=== PATIENT | male | born 1960 | race Caucasian/White ===

== ENCOUNTER 2016-03-06 10:32 | Inpatient (IN) | payer MEDICAID, MEDICARE ==
--- NOTE | 2016-03-06 10:34 | ED Physician Chart ---
Chief Complaint/HPI - Patient Information Date Seen:: 03/06/16 Time Seen:: 10:34 Chief Complaint:: cough History of Present Illness:: 55-year-old male, history of diabetes, complains of worsening, constant, moderate to severe, slightly productive, cough 2 weeks. Has associated shortness of breath. Patient also complains of acute, worsening, constant, moderate to severe, infection of the skin on his chin and forehead. Associated redness and swelling of the chin and forehead. Has a history of cellulitis. Allergies:: Allergies Allergy/AdvReac Type Severity Reaction Status Date / Time MDX No Known Allergies - Nka Allergy Verified 02/11/15 11:00 [No Known Allergies - Nka] Historian:: Patient Review:: Nurse's Note Reviewed Review of Systems - Review of Systems Other: Complete system review otherwise unremarkable except as noted in HPI. Past Medical History - Past Medical History Past Medical History: HTN, DM, CHF Family History: None Social History: Smoker Surgical History: None Psychiatricy History: None Medication: Reviewed Family Medical History - Family Member Father History Unknown: Yes Living Status: Hx Family Diabetes: Yes Physical Exam - Physical Examination Other:: INITIAL VITAL SIGNS: Reviewed by me GENERAL: Alert and interactive. No acute distress HEAD: Head is normocephalic and atraumatic EYES: EOMI. . No scleral icterus. No conjunctival injection ENT: Moist mucous membranes. NECK: Supple. No masses. Full range of motion RESPIRATORY: No tachypnea. Prolonged expiratory phase with bilateral expiratory wheezing. CV: Regular rate and rhythm. No murmurs, rubs, or gallops ABDOMEN: Soft, non-distended, non-tender. No guarding. No rebound. No masses. EXTREMITIES: No deformity. No cyanosis. No edema. SKIN: Warm and dry. No obvious rashes. NEUROLOGIC: Alert and oriented. Face is symmetric. Speech is normal. Moves all extremities equally. Motor and sensory distally intact. Labs/Radiology/EKG Results - Radiology Results Results: Single AP VIEW Portable Chest X-ray was interpreted independently and contemporaneously by David Herbert MD: No cardiomegaly Normal mediastinum No lung infiltrates No pneumothorax No soft tissue or bony abnormalities - EKG Interpretations Comments:: 12-lead EKG Interpretation by David Herbert MD: Normal Sinus Rhythm with ventricular rate of 90 beats per minute Normal axis Normal intervals No acute ST or T wave changes. No obvious STEMI Assessment - Assessment General Assessment: SMOKING CESSATION COUNSELING: I spent greater than 3 minutes at the bedside with the patient discussing the benefits of smoking cessation, including decreased risk of heart disease, lung cancer, and emphysema. We also discussed strategies for smoking cessation, including pharmaceutical options. The patient was also encouraged to follow up with the primary care physician for outpatient follow-up. ED Septic Shock - . Is Septic Shock (SBP<90, OR Lactate>4 mmol\L) present?: No Reassessment (Disposition) - Reassessment Reassessment:: Patient is a smoker. He seems to be having a COPD exacerbation. Elevated white count of 16.2. He also has cellulitis of the forehead and chin. Comorbidities include CHF, diabetes mellitus and hypertension. He received Steroids and antibiotics here in the ER. Also received breathing treatment. He did experience some relief of the cough and shortness of breath. However patient will most likely benefit from some ongoing inpatient treatment and workup. Discussed the case with his primary care physician and admitting physician who has decided to admit the patient to his service for further workup and treatment. Reassessment Condition:: Improved - Diagnosis Diagnosis:: COPD exacerbation Cellulitis of the face Hyponatremia Uncontrolled diabetes mellitus with hyperglycemia Hypertension - Patient Disposition Discharge/Transfer:: Acute Care w/in this hosp Admitted to:: Med/Surg Admitting Medical Physician:: Adithya Hernandes Time:: 12:05 Condition at Disposition:: Stable ED Discharge Plan - Patient Disposition Admit/Discharge/Transfer: Acute Care w/in this hosp Condition at Disposition: Stable
[2016-03-06 11:03] LABS: URINE BILIRUBIN NEGATIVE (NEGATIVE); URINE COLOR YELLOW; URINE GLUCOSE (UA) 500 mg/dL (NEGATIVE); URINE KETONE NEGATIVE (NEGATIVE)
[2016-03-06 11:04] LABS: URINE BLOOD SMALL (NEGATIVE); URINE PROTEIN 100 mg/dL (NEGATIVE); URINE UROBILINOGEN 0.2 E.U./dL (0.2 - 1.0); URINE WBC 0-2 /hpf (0-5)
[2016-03-06 11:05] LABS: URINE BACTERIA OCCASIONAL /hpf (NONE SEEN); URINE EPITHELIAL CELLS OCCASIONAL /lpf (FEW); URINE SPERM FEW /hpf (NONE SEEN)
[2016-03-06 11:16] LABS: AMPHETAMINE URINE NEGATIVE (NEGATIVE); BARBITURATES URINE NEGATIVE (NEGATIVE)
[2016-03-06 11:23] LABS: % LYMPHOCYTES 9.5 % (20.0-50.0); % MONOCYTES 2.8 % (2.0-10.0); % NEUTROPHILS 86.7 % (40.0-80.0); MEAN CELL VOLUME 92.8 fl (80-99); MEAN CORPUSCULAR HEMOGLOBIN 30.6 pg (26.0-30.0); MEAN PLATELET VOLUME 9.1 fl; NEUTROPHILE ABSOLUTE 14.1 Th/cmm (1.8-8.0); RED BLOOD COUNT 4.63 Mil/cmm (4.30-5.70); RED CELL DISTRIBUTION WIDTH 12.1 % (11.5-20.0)
[2016-03-06] MEDS ORDERED: Dexamethasone Sodium Phos 4 mg/mL Vial IM STA (11:24)
[2016-03-06] MEDS ORDERED: Albuterol/Ipratropium Neb 3 ML AERS HHN ONE ×2 (11:24→11:34)
[2016-03-06 11:26] LABS: HEMOGLOBIN 14.2 gm/dL (13.2-17.3); PLATELET COUNT 377 Th/cmm (150-400); WHITE BLOOD COUNT 16.3 Th/cmm (4.8-10.8)
[2016-03-06] MEDS ORDERED: Dexamethasone Sodium Phos 10 mg/mL PF Vial ONE (11:27)
[2016-03-06 11:37] LABS: INR 0.99 (0.5-1.4); PROTHROMBIN TIME (TEST) 9.8 SECONDS (9.5-11.5)
[2016-03-06 11:44] LABS: ALB/GLOB RATIO 0.8 (1.0-1.8); ALKALINE PHOSPHATASE 241 U/L (34-104); ANION GAP 10.1 (7.0-16.0); BILIRUBIN,TOTAL 0.4 mg/dL (0.3-1.0); BUN - UREA NITROGEN 21 mg/dL (7-25); CALCIUM SERUM 9.7 mg/dL (8.6-10.3); CARBON DIOXIDE 25.4 mEq/L (21.0-31.0); CHLORIDE 95 mEq/L (98-107); POTASSIUM SERUM 4.5 mEq/L (3.5-5.1); SGOT 44 U/L (13-39); SGPT/ALT 58 U/L (7-52); SODIUM SERUM 126 mEq/L (136-145)
[2016-03-06 12:02] LABS: GLUCOSE 461 mg/dL (70-105)
[2016-03-06] MEDS ORDERED: Sodium Chloride 0.9% 1,000 ML IV ONE (12:02)
[2016-03-06] MEDS ORDERED: Piperacillin Sodium/Tazobact 3.375 gm Vial IV ONE (12:25)
[2016-03-06] MEDS ORDERED: Albuterol/Ipratropium Neb 3 ML AERS HHN PRN (13:04)
[2016-03-06] MEDS: Insulin Detemir 100 units/mL 10mL Vial SUBQ SCH (14:15)
[2016-03-06] MEDS: Albuterol Nebulizer 2.5mg/3mL HHN SCH ×3 (14:42→22:38)
[2016-03-06] MEDS: INSULIN ASPART SLIDING SCALE 100 UNITS/ML UNIT SUBQ SCH ×2 (16:26→21:18)
[2016-03-06] MEDS: Ipratropium Neb 0.5 mg/2.5 mL UD HHN SCH ×3 (20:09→22:42)
--- NOTE | 2016-03-06 21:12 | Admit Criteria Form ---
Admit Criteria Forms - Admit Criteria Diagnosis: COPD Clinical Indications for Admission to Inpatient Care (Place 'X' for any and all applicable criteria): Admission is indicated for ANY ONE of the following (1)(2)(3): [ X]I. Acute exacerbation by high-risk comorbidity (e.g., pneumonia, dysrhythmia, heart failure, pleural effusion, pneumothorax) or severe underlying COPD (e.g., steroid dependent) [ ]II. Inpatient admission required rather than observation care (see Chronic Obstructive Pulmonary Disease: Observation Care) because of ANY ONE of the following: [ ]a) New or pre-existing signs or symptoms of COPD (eg, dyspnea or Tachypnea at rest or with minimal activity) that persist despite outpatient and observation care treatment [ ]b) New-onset hypoxemia (room air SaO2 less than 90%, PO2 less than 60 mm Hg (8.0 kPa)) that persists despite outpatient and observation care treatment [ ]c) Worsening of pre-existing hypoxemia (eg, new or increased requirement for supplemental oxygen to maintain oxygenation at baseline level) that persists despite outpatient and observation care treatment, with oxygen treatment needs performable only in acute inpatient setting [ ]d) Hypercarbia (PCO2 greater than 40 mm Hg (5.3 kPa))-induced respiratory acidosis (pH less than 7.35) that persists despite outpatient and observation care treatment [ ]e) Supplemental oxygen or respiratory treatments for over 24 hours that are performable only in acute inpatient setting [ ]f) Chest tube placement with active evacuation (e.g., suction, drainage) (5) [ ]g) Other condition, treatment or monitoring requiring inpatient admission [ ]III. Planned invasive surgical or diagnostic procedures requiring acute- care hospitalization [ ]IV. Acute respiratory failure (e.g., uncompensated hypercarbia, severe hypoxemia) [ ]V. Severe comorbid condition (e.g., severe steroid myopathy, acute vertebral fracture) that has acutely worsened pulmonary function [ ]. Confusion state, lethargy, obtundation, stupor or coma Extended stay beyond goal length of stay may be needed for (31)(32): [ ]a ) Respiratory Failure. [ ]b) Severe or persisting hypoxemia or hypercarbia [ ]c) Severe or persistent dyspnea [ ]d) Comorbidities (e.g. chronic heart failure, atrial fibrillation with rapid response, pneumonia) [ ]e) Malnutrition The original [employer] content created by [facility] has been revised. The portions of the content which have been revised are identified through the use of italic text or in bold, and [facility] has neither reviewed nor approved the modified material. All other unmodified content is copyright [facility]. Please see references footnoted in the original [facility] edition 2016 Admit Criteria Met?: Yes
[2016-03-07] MEDS: Albuterol Nebulizer 2.5mg/3mL HHN SCH ×6 (03:17→22:52)
[2016-03-07] MEDS: Ipratropium Neb 0.5 mg/2.5 mL UD HHN SCH ×6 (03:17→22:53)
[2016-03-07 06:27] LABS: HEMATOCRIT 39.3 % (39.0-49.0); HEMOGLOBIN 13.1 gm/dL (13.2-17.3); MEAN CELL VOLUME 92.1 fl (80-99); MEAN CORPUSCULAR HEMOGLOBIN 30.7 pg (26.0-30.0); MEAN CORPUSCULAR HGB CONC 33.3 pg (28.0-36.0); MEAN PLATELET VOLUME 9.2 fl; PLATELET COUNT 340 Th/cmm (150-400); RED BLOOD COUNT 4.27 Mil/cmm (4.30-5.70); RED CELL DISTRIBUTION WIDTH 12.4 % (11.5-20.0); WHITE BLOOD COUNT 13.9 Th/cmm (4.8-10.8)
[2016-03-07] MEDS: INSULIN ASPART SLIDING SCALE 100 UNITS/ML UNIT SUBQ SCH ×4 (06:45→22:54)
[2016-03-07 07:06] LABS: ANION GAP 12.7 (7.0-16.0); BUN - UREA NITROGEN 28 mg/dL (7-25); BUN/CREATININE RATIO 31.1; CALCIUM SERUM 9.5 mg/dL (8.6-10.3); CARBON DIOXIDE 22.6 mEq/L (21.0-31.0); CHLORIDE 99 mEq/L (98-107); CREATININE - SERUM 0.9 mg/dL (0.7-1.3); GLUCOSE 417 mg/dL (70-105); POTASSIUM SERUM 4.3 mEq/L (3.5-5.1); SODIUM SERUM 130 mEq/L (136-145)
[2016-03-07] MEDS: Potassium Chloride 10 mEq ER Tab PO SCH (08:30)
[2016-03-07] MEDS: Insulin Detemir 100 units/mL 10mL Vial SUBQ SCH ×2 (08:50→16:42)
--- NOTE | 2016-03-07 09:31 | Diagnostic Imaging Report ---
History: Shortness of breath Comparison: 02/12/2015 Findings: Heart size is enlarged. There is mild bilateral bronchovascular prominence in the bases. Impression: Compared to previous exam question mild congestive changes.
[2016-03-07 10:29] LABS: BAND NEUTROPHILE 6 % (0-10); NEUTROPHILS 86 % (40-80); TOTAL CELLS COUNTED 100
[2016-03-07 10:30] LABS: PLATELET ESTIMATE ADEQUATE (NORMAL); PLATELET MORPHOLOGY NORMAL (NORMAL)
--- NOTE | 2016-03-07 10:47 | Diagnostic Imaging Report ---
History: Chest pain and shortness of breath Comparison: 03/06/2016 Findings: Heart size is enlarged. There is vascular prominence in the bases. Impression: Slight increase in congestive changes compared to previous day's exam.
--- NOTE | 2016-03-07 19:48 | History & Physical ---
CHIEF COMPLAINT: Shortness of breath. HISTORY OF PRESENT ILLNESS: This is a 55-year-old male with underlying history of systolic heart failure, diabetes mellitus, chronic smoker, hypertension, who was evaluated in the Emergency Room at [facility] for shortness of breath and cough for the past few days, which progressively got worse. The patient tell that he has been not taking his medications the way he should. The patient also been noncompliant with the appointment with the physicians. The patient denies any chest pain, no dizziness, no palpitations, no fever, no chills. He also noticed some skin bumps over the face and the neck area for the past few days. The patient does have underlying history of prior drug abuse. He said he is also a chronic smoker. PAST MEDICAL HISTORY: Diabetes mellitus, hypertension, congestive heart failure, osteomyelitis. PAST SURGICAL HISTORY: Denies any past history. FAMILY HISTORY: Denies significant family history. SOCIAL HISTORY: Lives at home. He is a chronic smoker, denies any current alcohol, tobacco or street drug use. CURRENT MEDICATIONS: The patient is currently on Lasix, Coreg, albuterol, Atrovent, insulin, metformin, potassium and vancomycin. PHYSICAL EXAMINATION: HEENT: Negative for JVD. NECK: No neck stiffness noted. CHEST: Bilateral ____. HEART: S1, S2 normal. ABDOMEN: Soft, nontender, no palpable mass, no hepatosplenomegaly. NEUROLOGIC: The patient is alert and awake. Moves all 4. No focal deficits. EXTREMITIES: +1 pitting edema in both lower extremities. SKIN: Scattered slightly erythematous skin bumps noted on the neck and the face area. LABORATORY DATA: Available lab area data as follows: WBC is 16, up on admission 16.3, hematocrit 43.0, platelet 377, neutrophil 86.7%, lymphocyte ____%. Sodium was 126, potassium was 4.5, BUN upon admission was 21, creatinine was 0.9. AST 44. ALT was 58. BNP 2940.0. Chest x-ray negative for any acute infiltrates. CHF changes noted. ASSESSMENT: 1. Acute systolic heart failure. 2. Cellulitis over the face. 3. Diabetes with hyperglycemia. 4. Noncompliance. 5. Hypertension. 6. Chronic cigarette smoker. 7. Microscopic hematuria. PLAN: The patient will be admitted to the hospital for further treatments for underlying congestive heart failure and CHF exacerbation. The patient is on IV Lasix, Coreg, nebulizer treatment, oxygen, IV vancomycin was started. ID, General Surgery and Cardiology consult was called in. The patient was started on basal bolus insulin. Blood sugar will be monitored. We will do a repeat urine to see and will follow up on the microscopic hematuria to see if it is something significant. I discussed with patient regarding smoking cessation and also medication and treatment compliance as well as patient's follow up compliance, all of this discussed with the patient. Blood cultures were also obtained. The patient's condition and plan was discussed with nursing staff. We will follow up on the ____ recommendations. The patient's home medications were reconciled. JOB# [id number]
--- NOTE | 2016-03-07 21:37 | General Progress Note ---
Subjective - Review of Systems Service Date: 03/07/16 Subjective: Patient doing fine no new events reported Objective - Results Result Diagrams: 03/07/16 06:07 03/07/16 06:07 Recent Labs: Laboratory Last Values WBC 13.9 Th/cmm (4.8-10.8) H 03/07/16 06:07 RBC 4.27 Mil/cmm (4.30-5.70) L 03/07/16 06:07 Hgb 13.1 gm/dL (13.2-17.3) L 03/07/16 06:07 Hct 39.3 % (39.0-49.0) 03/07/16 06:07 MCV 92.1 fl (80-99) 03/07/16 06:07 MCH 30.7 pg (26.0-30.0) H 03/07/16 06:07 MCHC Differential 33.3 pg (28.0-36.0) 03/07/16 06:07 RDW 12.4 % (11.5-20.0) 03/07/16 06:07 Plt Count 340 Th/cmm (150-400) 03/07/16 06:07 MPV 9.2 fl 03/07/16 06:07 Neutrophils % 86.7 % (40.0-80.0) H 03/06/16 11:05 Band Neutrophils % 6 % (0-10) 03/07/16 06:07 Lymphocytes % 9.5 % (20.0-50.0) L 03/06/16 11:05 Monocytes % 2.8 % (2.0-10.0) 03/06/16 11:05 Eosinophils % 1.0 % (0.0-5.0) 03/06/16 11:05 Basophils % 0.0 % (0.0-2.0) 03/06/16 11:05 Neutrophils (Manual) 86 % (40-80) H 03/07/16 06:07 Lymphocytes 4 % (20-50) L 03/07/16 06:07 Monocytes 4 % (2-10) 03/07/16 06:07 Platelet Estimate ADEQUATE (NORMAL) 03/07/16 06:07 Platelet Morphology NORMAL (NORMAL) 03/07/16 06:07 RBC Morph Micro Appear NORMAL (NORMAL) 03/07/16 06:07 PT 9.8 SECONDS (9.5-11.5) 03/06/16 11:05 INR 0.99 (0.5-1.4) 03/06/16 11:05 PTT (Actin FS) 24.1 SECONDS (26.0-38.0) L 03/06/16 11:05 Sodium 130 mEq/L (136-145) L 03/07/16 06:07 Potassium 4.3 mEq/L (3.5-5.1) 03/07/16 06:07 Chloride 99 mEq/L (98-107) 03/07/16 06:07 Carbon Dioxide 22.6 mEq/L (21.0-31.0) 03/07/16 06:07 Anion Gap 12.7 (7.0-16.0) 03/07/16 06:07 BUN 28 mg/dL (7-25) H 03/07/16 06:07 Creatinine 0.9 mg/dL (0.7-1.3) 03/07/16 06:07 Est GFR ( Amer) > 60.0 ml/min (>90) 03/07/16 06:07 Est GFR (Non-Af Amer) > 60.0 ml/min 03/07/16 06:07 BUN/Creatinine Ratio 31.1 03/07/16 06:07 Glucose 417 mg/dL (70-105) H 03/07/16 06:07 POC Glucose 126 MG/DL (70 - 105) H 03/07/16 15:49 Hemoglobin A1c % 12.9 % (4.0-6.0) H 03/06/16 11:05 Whole Bld Lactic Acid 1.57 mmol/L (0.60-2.00) 03/06/16 11:05 Calcium 9.5 mg/dL (8.6-10.3) 03/07/16 06:07 Total Bilirubin 0.4 mg/dL (0.3-1.0) 03/06/16 11:05 AST 44 U/L (13-39) H 03/06/16 11:05 ALT 58 U/L (7-52) H 03/06/16 11:05 Alkaline Phosphatase 241 U/L (34-104) H 03/06/16 11:05 Creatine Kinase 73 U/L (30-223) 03/06/16 11:05 B-Natriuretic Peptide 3300.0 pg/mL (5.0-100.0) H 03/07/16 06:07 Total Protein 7.5 gm/dL (6.0-8.3) 03/06/16 11:05 Albumin 3.3 gm/dL (4.2-5.5) L 03/06/16 11:05 Globulin 4.2 gm/dL 03/06/16 11:05 Albumin/Globulin Ratio 0.8 (1.0-1.8) L 03/06/16 11:05 Urine Source CLEAN C 03/06/16 10:44 Urine Color YELLOW 03/06/16 10:44 Urine Clarity CLEAR (CLEAR) 03/06/16 10:44 Urine pH 6.0 03/06/16 10:44 Ur Specific [place] 1.015 (1.005-1.030) 03/06/16 10:44 Urine Protein 100 mg/dL (NEGATIVE) H 03/06/16 10:44 Urine Glucose (UA) 500 mg/dL (NEGATIVE) H 03/06/16 10:44 Urine Ketones NEGATIVE mg/dL (NEGATIVE) 03/06/16 10:44 Urine Blood SMALL (NEGATIVE) H 03/06/16 10:44 Urine Nitrate NEGATIVE (NEGATIVE) 03/06/16 10:44 Urine Bilirubin NEGATIVE (NEGATIVE) 03/06/16 10:44 Urine Urobilinogen 0.2 E.U./dL (0.2 - 1.0) 03/06/16 10:44 Ur Leukocyte Esterase NEGATIVE (NEGATIVE) 03/06/16 10:44 Urine RBC 2-5 /hpf (0-5) H 03/06/16 10:44 Urine WBC 0-2 /hpf (0-5) 03/06/16 10:44 Ur Epithelial Cells OCCASIONAL /lpf (FEW) 03/06/16 10:44 Urine Bacteria OCCASIONAL /hpf (NONE SEEN) 03/06/16 10:44 Urine Yeast FEW /hpf (NONE SEEN) H 03/06/16 10:44 Urine Sperm FEW /hpf (NONE SEEN) 03/06/16 10:44 Urine Opiates Screen NEGATIVE (NEGATIVE) 03/06/16 10:35 Ur Barbiturates Screen NEGATIVE (NEGATIVE) 03/06/16 10:35 Ur Phencyclidine Scrn NEGATIVE (NEGATIVE) 03/06/16 10:35 Amphetamines Screen NEGATIVE (NEGATIVE) 03/06/16 10:35 U Methamphetamines Scrn NEGATIVE (NEGATIVE) 03/06/16 10:35 U Benzodiazepines Scrn NEGATIVE (NEGATIVE) 03/06/16 10:35 U Cocaine Metab Screen NEGATIVE (NEGATIVE) 03/06/16 10:35 U Cannabinoids Screen NEGATIVE (NEGATIVE) 03/06/16 10:35 - Physical Exam Vitals and I&O: Vital Signs Temp 98.4 F 03/07/16 16:00 Pulse 95 03/07/16 16:00 Resp 17 03/07/16 16:00 BP 126/84 03/07/16 16:40 Pulse Ox 95 03/07/16 16:00 Intake & Output 03/07/16 03/07/16 03/08/16 06:59 18:59 06:59 Intake Total 250 Balance 250 Intake: Intake, IV Amount 250 Vancomycin HCl 1.25 gm In 250 Sodium Chloride 0.9% 250 ml @ 165 mls/hr IV Q12H [facility] Rx#:[id number] Other: # Voids 5 # Bowel Movements 1 Stool Characteristics Formed Formed Active Medications: Current Medications Albuterol Sulfate (Albuterol 2.5mg/3ml Neb Ud) 2.5 mg HHN Q4HRT [facility] Stop: 05/05/16 14:59 Last Admin: 03/07/16 19:35 Dose: 2.5 mg Albuterol/Ipratropium (Duoneb Neb) 3 ml HHN Q2HRT PRN PRN Reason: Shortness of Breath Stop: 05/05/16 13:03 Carvedilol (Coreg) 3.125 mg PO Q12HR MARIO Stop: 05/05/16 20:59 Last Admin: 03/07/16 08:29 Dose: 3.125 mg Furosemide (Lasix) 40 mg IVP BID [facility] Stop: 05/06/16 16:59 Last Admin: 03/07/16 16:40 Dose: 40 mg Vancomycin HCl 1.25 gm/ Sodium (Chloride) 250 mls @ 165 mls/hr IV Q12H [facility] Stop: 05/06/16 00:00 Last Admin: 03/07/16 11:48 Dose: 165 mls/hr Ibuprofen (Motrin) 800 mg PO TID PRN PRN Reason: Pain (Mild) Stop: 05/06/16 16:59 Insulin Aspart (Novolog Insulin Sliding Scale) 0 units SUBQ ACHS MARIO PRN Reason: Protocol Stop: 05/05/16 16:29 Last Admin: 03/07/16 16:41 Dose: Not Given Insulin Detemir (Levemir Insulin) 15 units SUBQ BID MARIO PRN Reason: Protocol Stop: 05/06/16 16:59 Last Admin: 03/07/16 16:42 Dose: Not Given Ipratropium [place] (Atrovent Neb 0.5mg/2.5ml) 0.5 mg HHN Q4HRT MARIO Stop: 05/05/16 14:59 Last Admin: 03/07/16 19:35 Dose: 0.5 mg Metformin HCl (Glucophage) 1,000 mg PO BIDWM MARIO Stop: 05/05/16 17:59 Last Admin: 03/07/16 17:15 Dose: 1,000 mg Miscellaneous (Vancomycin Iv Per Pharmacy) 1 ea MC DAILY MARIO Stop: 05/06/16 08:59 Mupirocin (Bactroban Oint) 1 appl TP BID [facility] Stop: 03/13/16 08:59 Potassium Chloride (Klor-Con) 10 meq PO DAILY MARIO Stop: 05/06/16 08:59 Last Admin: 03/07/16 08:30 Dose: 10 meq Cardiovascular: Regular rate Lungs: Other (rales) Abdomen: Soft - Procedures Procedures: Procedures Procedure Code Date JUAN DIEGO BONE 20 SQ CM/< 01492 02/11/15 EXCISION OF RIGHT RADIUS, OPEN APPROACH [id number] 02/11/15 Assessment/Plan - Problem List Patient Problems: All Active Problems COUGH WITH CONGESTION AND FACIAL LESIONS (Acute) Arm pain (Acute) - Assessment Assessment: Systolic heart failure Uncontrolled diabetes HTN Facial cellulitis Smoking Non compliance - Plan Plan: Lasix increased to 40 BID Levemir increased to 15 BID Monitor vitals Monitor labs Vancomycin
[2016-03-08] MEDS ORDERED: Morphine Sulfate 2 mg/mL 1mL Syr IVP ONE (01:30)
[2016-03-08 06:20] LABS: CHOLESTEROL 168 mg/dL (<200); TRIGLYCERIDES 202 mg/dL (<150)
[2016-03-08] MEDS: INSULIN ASPART SLIDING SCALE 100 UNITS/ML UNIT SUBQ SCH ×4 (06:50→21:30)
[2016-03-08] MEDS: Ipratropium Neb 0.5 mg/2.5 mL UD HHN SCH ×5 (07:25→22:22)
[2016-03-08] MEDS: Albuterol Nebulizer 2.5mg/3mL HHN SCH ×5 (07:26→22:22)
[2016-03-08] MEDS: Insulin Detemir 100 units/mL 10mL Vial SUBQ SCH ×2 (09:57→17:21)
[2016-03-08] MEDS: Potassium Chloride 10 mEq ER Tab PO SCH (09:59)
--- NOTE | 2016-03-08 12:40 | Consultation ---
REFERRING PHYSICIAN: Dr. Ovidio Hernandes. REASON FOR CONSULTATION: Skin infections, head and neck. Thank you for referring this patient to me. HISTORY OF PRESENT ILLNESS: This is a 55-year-old male with known history of CHF, diabetes mellitus, chronic smoker, hypertension. His blood sugar is extremely high on admission and has been persistently high. He claims he needs to be on insurance, but his insurance would not cover it. LABORATORY STUDIES: On this admission, the WBC was elevated to 13,900 with 86% neutrophils. Blood sugar on admission was 417. PHYSICAL EXAMINATION: GENERAL: The patient appears to be coherent. SKIN: Multiple skin lesions, which appeared to be inflamed acne or ____ involving head and neck. It is slightly tender with minimal cellulitis. RECOMMENDATIONS: Continue antibiotics. We will leave these lesions ____ and likely this will clear up with antibiotics. We will follow as needed. [facility]# [id number]
--- NOTE | 2016-03-08 13:28 | Infectious Disease Prog Note ---
Infectious Disease Subjective - Review of Systems Service Date: 03/08/16 Subjective: There is no new change. Infectious Disease Objective - Results Result Diagrams: 03/07/16 06:07 03/07/16 06:07 Recent Labs: Laboratory Last Values WBC 13.9 Th/cmm (4.8-10.8) H 03/07/16 06:07 RBC 4.27 Mil/cmm (4.30-5.70) L 03/07/16 06:07 Hgb 13.1 gm/dL (13.2-17.3) L 03/07/16 06:07 Hct 39.3 % (39.0-49.0) 03/07/16 06:07 MCV 92.1 fl (80-99) 03/07/16 06:07 MCH 30.7 pg (26.0-30.0) H 03/07/16 06:07 MCHC Differential 33.3 pg (28.0-36.0) 03/07/16 06:07 RDW 12.4 % (11.5-20.0) 03/07/16 06:07 Plt Count 340 Th/cmm (150-400) 03/07/16 06:07 MPV 9.2 fl 03/07/16 06:07 Neutrophils % 86.7 % (40.0-80.0) H 03/06/16 11:05 Band Neutrophils % 6 % (0-10) 03/07/16 06:07 Lymphocytes % 9.5 % (20.0-50.0) L 03/06/16 11:05 Monocytes % 2.8 % (2.0-10.0) 03/06/16 11:05 Eosinophils % 1.0 % (0.0-5.0) 03/06/16 11:05 Basophils % 0.0 % (0.0-2.0) 03/06/16 11:05 Neutrophils (Manual) 86 % (40-80) H 03/07/16 06:07 Lymphocytes 4 % (20-50) L 03/07/16 06:07 Monocytes 4 % (2-10) 03/07/16 06:07 Platelet Estimate ADEQUATE (NORMAL) 03/07/16 06:07 Platelet Morphology NORMAL (NORMAL) 03/07/16 06:07 RBC Morph Micro Appear NORMAL (NORMAL) 03/07/16 06:07 PT 9.8 SECONDS (9.5-11.5) 03/06/16 11:05 INR 0.99 (0.5-1.4) 03/06/16 11:05 PTT (Actin FS) 24.1 SECONDS (26.0-38.0) L 03/06/16 11:05 Sodium 130 mEq/L (136-145) L 03/07/16 06:07 Potassium 4.3 mEq/L (3.5-5.1) 03/07/16 06:07 Chloride 99 mEq/L (98-107) 03/07/16 06:07 Carbon Dioxide 22.6 mEq/L (21.0-31.0) 03/07/16 06:07 Anion Gap 12.7 (7.0-16.0) 03/07/16 06:07 BUN 28 mg/dL (7-25) H 03/07/16 06:07 Creatinine 0.9 mg/dL (0.7-1.3) 03/07/16 06:07 Est GFR ( Amer) > 60.0 ml/min (>90) 03/07/16 06:07 Est GFR (Non-Af Amer) > 60.0 ml/min 03/07/16 06:07 BUN/Creatinine Ratio 31.1 03/07/16 06:07 Glucose 417 mg/dL (70-105) H 03/07/16 06:07 POC Glucose 269 MG/DL (70 - 105) H 03/08/16 09:56 Hemoglobin A1c % 12.9 % (4.0-6.0) H 03/06/16 11:05 Whole Bld Lactic Acid 1.57 mmol/L (0.60-2.00) 03/06/16 11:05 Calcium 9.5 mg/dL (8.6-10.3) 03/07/16 06:07 Total Bilirubin 0.4 mg/dL (0.3-1.0) 03/06/16 11:05 AST 44 U/L (13-39) H 03/06/16 11:05 ALT 58 U/L (7-52) H 03/06/16 11:05 Alkaline Phosphatase 241 U/L (34-104) H 03/06/16 11:05 Creatine Kinase 73 U/L (30-223) 03/06/16 11:05 B-Natriuretic Peptide 3300.0 pg/mL (5.0-100.0) H 03/07/16 06:07 Total Protein 7.5 gm/dL (6.0-8.3) 03/06/16 11:05 Albumin 3.3 gm/dL (4.2-5.5) L 03/06/16 11:05 Globulin 4.2 gm/dL 03/06/16 11:05 Albumin/Globulin Ratio 0.8 (1.0-1.8) L 03/06/16 11:05 Triglycerides 202 mg/dL (<150) H 03/08/16 05:45 Cholesterol 168 mg/dL (<200) 03/08/16 05:45 LDL Cholesterol Direct 105 mg/dL (75-193) 03/08/16 05:45 HDL Cholesterol 50 mg/dL (23-92) 03/08/16 05:45 Urine Source CLEAN C 03/06/16 10:44 Urine Color YELLOW 03/06/16 10:44 Urine Clarity CLEAR (CLEAR) 03/06/16 10:44 Urine pH 6.0 03/06/16 10:44 Ur Specific [place] 1.015 (1.005-1.030) 03/06/16 10:44 Urine Protein 100 mg/dL (NEGATIVE) H 03/06/16 10:44 Urine Glucose (UA) 500 mg/dL (NEGATIVE) H 03/06/16 10:44 Urine Ketones NEGATIVE mg/dL (NEGATIVE) 03/06/16 10:44 Urine Blood SMALL (NEGATIVE) H 03/06/16 10:44 Urine Nitrate NEGATIVE (NEGATIVE) 03/06/16 10:44 Urine Bilirubin NEGATIVE (NEGATIVE) 03/06/16 10:44 Urine Urobilinogen 0.2 E.U./dL (0.2 - 1.0) 03/06/16 10:44 Ur Leukocyte Esterase NEGATIVE (NEGATIVE) 03/06/16 10:44 Urine RBC 2-5 /hpf (0-5) H 03/06/16 10:44 Urine WBC 0-2 /hpf (0-5) 03/06/16 10:44 Ur Epithelial Cells OCCASIONAL /lpf (FEW) 03/06/16 10:44 Urine Bacteria OCCASIONAL /hpf (NONE SEEN) 03/06/16 10:44 Urine Yeast FEW /hpf (NONE SEEN) H 03/06/16 10:44 Urine Sperm FEW /hpf (NONE SEEN) 03/06/16 10:44 Vancomycin Trough 22.9 ug/mL (10-20) H 03/08/16 11:00 Urine Opiates Screen NEGATIVE (NEGATIVE) 03/06/16 10:35 Ur Barbiturates Screen NEGATIVE (NEGATIVE) 03/06/16 10:35 Ur Phencyclidine Scrn NEGATIVE (NEGATIVE) 03/06/16 10:35 Amphetamines Screen NEGATIVE (NEGATIVE) 03/06/16 10:35 U Methamphetamines Scrn NEGATIVE (NEGATIVE) 03/06/16 10:35 U Benzodiazepines Scrn NEGATIVE (NEGATIVE) 03/06/16 10:35 U Cocaine Metab Screen NEGATIVE (NEGATIVE) 03/06/16 10:35 U Cannabinoids Screen NEGATIVE (NEGATIVE) 03/06/16 10:35 - Physical Exam Vitals and I&O: Vital Signs Temp 97.8 F 03/08/16 11:54 Pulse 92 03/08/16 11:54 Resp 19 03/08/16 11:54 BP 125/87 03/08/16 11:54 Pulse Ox 95 03/08/16 11:54 Intake & Output 03/07/16 03/08/16 03/08/16 18:59 06:59 18:59 Intake Total 250 100 Balance 250 100 Intake: Intake, IV Amount 250 Vancomycin HCl 1.25 gm In 250 Sodium Chloride 0.9% 250 ml @ 165 mls/hr IV Q12H [facility] Rx#:[id number] Oral 100 Other: # Voids 5 3 # Bowel Movements 1 Stool Characteristics Formed Active Medications: Current Medications Albuterol Sulfate (Albuterol 2.5mg/3ml Neb Ud) 2.5 mg HHN Q4HRT [facility] Stop: 05/05/16 14:59 Last Admin: 03/08/16 11:08 Dose: 2.5 mg Albuterol/Ipratropium (Duoneb Neb) 3 ml HHN Q2HRT PRN PRN Reason: Shortness of Breath Stop: 05/05/16 13:03 Carvedilol (Coreg) 3.125 mg PO Q12HR [facility] Stop: 05/05/16 20:59 Last Admin: 03/08/16 10:11 Dose: Not Given Furosemide (Lasix) 40 mg IVP BID [facility] Stop: 05/06/16 16:59 Last Admin: 03/08/16 09:58 Dose: 40 mg Vancomycin HCl 1.25 gm/ Sodium (Chloride) 250 mls @ 165 mls/hr IV Q12H [facility] Stop: 05/07/16 14:59 Ibuprofen (Motrin) 800 mg PO TID PRN PRN Reason: Pain (Mild) Stop: 05/06/16 16:59 Last Admin: 03/07/16 22:00 Dose: 800 mg Insulin Aspart (Novolog Insulin Sliding Scale) 0 units SUBQ ACHS [facility] PRN Reason: Protocol Stop: 05/05/16 16:29 Last Admin: 03/08/16 11:39 Dose: 7 units Insulin Detemir (Levemir Insulin) 15 units SUBQ BID [facility] PRN Reason: Protocol Stop: 05/06/16 16:59 Last Admin: 03/08/16 09:57 Dose: 15 units Ipratropium [place] (Atrovent Neb 0.5mg/2.5ml) 0.5 mg HHN Q4HRT [facility] Stop: 05/05/16 14:59 Last Admin: 03/08/16 11:08 Dose: 0.5 mg Metformin HCl (Glucophage) 1,000 mg PO BIDWM [facility] Stop: 05/05/16 17:59 Last Admin: 03/08/16 09:00 Dose: 1,000 mg Miscellaneous (Vancomycin Iv Per Pharmacy) 1 ea MC DAILY [facility] Stop: 05/06/16 08:59 Mupirocin (Bactroban Oint) 1 appl TP BID [facility] Stop: 03/13/16 08:59 Last Admin: 03/08/16 11:11 Dose: 1 appl Potassium Chloride (Klor-Con) 10 meq PO DAILY [facility] Stop: 05/06/16 08:59 Last Admin: 03/08/16 09:59 Dose: 10 meq Ramipril (Altace) 5 mg PO DAILY [facility] Stop: 05/07/16 08:59 Last Admin: 03/08/16 09:59 Dose: 5 mg General: no acute distress, well developed, well nourished HEENT: atraumatic, normocephalic, PERRLA, EOMI, moist mucous membrane Neck: supple Cardiovascular: S1S2, regular Lungs: clear to auscultation bilaterally, clear to percussion Abdomen: soft, no tender, no distended Extremities: no cyanosis, no clubbing, no edema Neurological: awake, alert, oriented, CN 2-12 intact Skin: intact - Procedures Procedures: Procedures Procedure Code Date JUAN DIEGO BONE 20 SQ CM/< 24436 02/11/15 EXCISION OF RIGHT RADIUS, OPEN APPROACH [id number] 02/11/15 Infectious Disease Assmt/Plan - Problem List Patient Problems: All Active Problems COUGH WITH CONGESTION AND FACIAL LESIONS (Acute) Arm pain (Acute) - Assessment Assessment: Impression: 1. Chin/ facial cellulitis. 2. DM2 3. Folliculitis, acne of the face and neck. - Plan Plan: Continue vanco IV.
--- NOTE | 2016-03-08 19:55 | Consultation ---
REFERRING PHYSICIAN: Dr. Adithya Hernandes. REASON FOR CONSULTATION: Facial cellulitis. HISTORY OF PRESENT ILLNESS: The patient is a 55-year-old male with the past medical history of congestive heart failure and diabetes mellitus type 2, chronic smoking, hypertension, admitted to [facility] for shortness of breath and cough for last few days. As he got worse gradually, so he came to the ER for further evaluation and management. Incidentally, it was found to have multiple bumps on his face and neck area for last few days. Along with that, he has significant swelling and tenderness of chin area. On milking, the patient has pus coming out. Pus was sent for the cultures. He was started on vancomycin IV and ID consult was called for further antibiotic management. PAST MEDICAL HISTORY: Include diabetes mellitus, hypertension, congestion heart failure, osteomyelitis of right elbow, treated with an antibiotic for 6 weeks. PAST SURGICAL HISTORY: The patient has incision and drainage of right elbow abscess along 1 year ago. FAMILY HISTORY: Noncontributory. SOCIAL HISTORY: The patient lives at home. Active smoker. Denies alcohol or drug use. MEDICATIONS: As per medication reconciliation sheet. Antibiotic mendez, the patient is on vancomycin. REVIEW OF SYSTEMS: GENERAL: The patient denies any fever, chills or any generalized weakness. HEENT: The patient denies diplopia, photophobia, sore throat or congestion. RESPIRATORY: The patient has had cough and congestion, which is getting better. CARDIOVASCULAR: Denies any chest pain or palpitation. GASTROINTESTINAL: The patient denies nausea, vomiting, diarrhea, or constipation. MUSCULOSKELETAL: No muscle pain, no joint pain. NEUROLOGIC: No headache, no dizziness, no focal weakness. SKIN: The patient has multiple small lesion from the face and the neck with swelling and tenderness, draining pus on chin area. PHYSICAL EXAMINATION: CURRENT VITAL SIGNS: Shows temperature is 98.7 degrees Fahrenheit, pulse 94, respirations 19, blood pressure is 132/89. GENERAL: The patient is comfortable, lying in the bed, not in acute distress. HEENT: Head is normocephalic, atraumatic. Oral cavity moist, pink tongue. NECK: Supple, no JVD, no carotid bruit. Trachea in midline. CHEST: Bilateral breath sounds. No crackles or wheezing. HEART: S1 and S2 within normal limit, regular rhythm. No murmur, no gallop. ABDOMEN: Soft, nontender, nondistended. Bowel sounds present. EXTREMITIES: No cyanosis, no clubbing, no edema. NEUROLOGIC: Alert, awake, oriented x 3. No focal neuro deficit. SKIN: The patient has multiple healing small skin abscesses on the face. There is active abscess on the chin area draining yellow pus. He is tender to touch and swollen. LABORATORY DATA: Current lab shows WBC count is 13,900, hemoglobin 13.1, hematocrit 39.3, platelets are 340,000, neutrophils 86%. Sodium is 130, potassium 4.3, chloride 99, bicarb is 22.6, BUN is 28, creatinine is 0.9, glucose is 417. BNP is 3300. Chest x-ray showed congestive changes. Urinalysis shows wbc 0-2 and few yeast, rbc 2-5. MRSA screening is positive. Blood culture, 2 sets are negative. IMPRESSION: 1. Folliculitis of the face likely acne, and abscess and cellulitis of chin area , most likely he had developed these abscesses secondary to old razor used for shaving. 2. Congestive heart failure. 3. Diabetes mellitus type 2, uncontrolled due to noncompliance. 4. Noncompliance. 5. History of osteomyelitis of right forearm, completely healed now, no need of any inervention. RECOMMENDATIONS: Continue vancomycin IV and send pus for the culture. Thank you, Dr. Greta Haji, for involving me in taking care of this patient. [facility]# [id number] [facility]
--- NOTE | 2016-03-08 20:17 | General Progress Note ---
Subjective - Review of Systems Service Date: 03/08/16 Subjective: Patient feels better denied chest pain or sob or any other complaints Objective - Results Result Diagrams: 03/07/16 06:07 03/07/16 06:07 Recent Labs: Laboratory Last Values WBC 13.9 Th/cmm (4.8-10.8) H 03/07/16 06:07 RBC 4.27 Mil/cmm (4.30-5.70) L 03/07/16 06:07 Hgb 13.1 gm/dL (13.2-17.3) L 03/07/16 06:07 Hct 39.3 % (39.0-49.0) 03/07/16 06:07 MCV 92.1 fl (80-99) 03/07/16 06:07 MCH 30.7 pg (26.0-30.0) H 03/07/16 06:07 MCHC Differential 33.3 pg (28.0-36.0) 03/07/16 06:07 RDW 12.4 % (11.5-20.0) 03/07/16 06:07 Plt Count 340 Th/cmm (150-400) 03/07/16 06:07 MPV 9.2 fl 03/07/16 06:07 Neutrophils % 86.7 % (40.0-80.0) H 03/06/16 11:05 Band Neutrophils % 6 % (0-10) 03/07/16 06:07 Lymphocytes % 9.5 % (20.0-50.0) L 03/06/16 11:05 Monocytes % 2.8 % (2.0-10.0) 03/06/16 11:05 Eosinophils % 1.0 % (0.0-5.0) 03/06/16 11:05 Basophils % 0.0 % (0.0-2.0) 03/06/16 11:05 Neutrophils (Manual) 86 % (40-80) H 03/07/16 06:07 Lymphocytes 4 % (20-50) L 03/07/16 06:07 Monocytes 4 % (2-10) 03/07/16 06:07 Platelet Estimate ADEQUATE (NORMAL) 03/07/16 06:07 Platelet Morphology NORMAL (NORMAL) 03/07/16 06:07 RBC Morph Micro Appear NORMAL (NORMAL) 03/07/16 06:07 PT 9.8 SECONDS (9.5-11.5) 03/06/16 11:05 INR 0.99 (0.5-1.4) 03/06/16 11:05 PTT (Actin FS) 24.1 SECONDS (26.0-38.0) L 03/06/16 11:05 Sodium 130 mEq/L (136-145) L 03/07/16 06:07 Potassium 4.3 mEq/L (3.5-5.1) 03/07/16 06:07 Chloride 99 mEq/L (98-107) 03/07/16 06:07 Carbon Dioxide 22.6 mEq/L (21.0-31.0) 03/07/16 06:07 Anion Gap 12.7 (7.0-16.0) 03/07/16 06:07 BUN 28 mg/dL (7-25) H 03/07/16 06:07 Creatinine 0.9 mg/dL (0.7-1.3) 03/07/16 06:07 Est GFR ( Amer) > 60.0 ml/min (>90) 03/07/16 06:07 Est GFR (Non-Af Amer) > 60.0 ml/min 03/07/16 06:07 BUN/Creatinine Ratio 31.1 03/07/16 06:07 Glucose 417 mg/dL (70-105) H 03/07/16 06:07 POC Glucose 265 MG/DL (70 - 105) H 03/08/16 11:25 Hemoglobin A1c % 12.9 % (4.0-6.0) H 03/06/16 11:05 Whole Bld Lactic Acid 1.57 mmol/L (0.60-2.00) 03/06/16 11:05 Calcium 9.5 mg/dL (8.6-10.3) 03/07/16 06:07 Total Bilirubin 0.4 mg/dL (0.3-1.0) 03/06/16 11:05 AST 44 U/L (13-39) H 03/06/16 11:05 ALT 58 U/L (7-52) H 03/06/16 11:05 Alkaline Phosphatase 241 U/L (34-104) H 03/06/16 11:05 Creatine Kinase 73 U/L (30-223) 03/06/16 11:05 B-Natriuretic Peptide 3300.0 pg/mL (5.0-100.0) H 03/07/16 06:07 Total Protein 7.5 gm/dL (6.0-8.3) 03/06/16 11:05 Albumin 3.3 gm/dL (4.2-5.5) L 03/06/16 11:05 Globulin 4.2 gm/dL 03/06/16 11:05 Albumin/Globulin Ratio 0.8 (1.0-1.8) L 03/06/16 11:05 Triglycerides 202 mg/dL (<150) H 03/08/16 05:45 Cholesterol 168 mg/dL (<200) 03/08/16 05:45 LDL Cholesterol Direct 105 mg/dL (75-193) 03/08/16 05:45 HDL Cholesterol 50 mg/dL (23-92) 03/08/16 05:45 Urine Source CLEAN C 03/06/16 10:44 Urine Color YELLOW 03/06/16 10:44 Urine Clarity CLEAR (CLEAR) 03/06/16 10:44 Urine pH 6.0 03/06/16 10:44 Ur Specific [place] 1.015 (1.005-1.030) 03/06/16 10:44 Urine Protein 100 mg/dL (NEGATIVE) H 03/06/16 10:44 Urine Glucose (UA) 500 mg/dL (NEGATIVE) H 03/06/16 10:44 Urine Ketones NEGATIVE mg/dL (NEGATIVE) 03/06/16 10:44 Urine Blood SMALL (NEGATIVE) H 03/06/16 10:44 Urine Nitrate NEGATIVE (NEGATIVE) 03/06/16 10:44 Urine Bilirubin NEGATIVE (NEGATIVE) 03/06/16 10:44 Urine Urobilinogen 0.2 E.U./dL (0.2 - 1.0) 03/06/16 10:44 Ur Leukocyte Esterase NEGATIVE (NEGATIVE) 03/06/16 10:44 Urine RBC 2-5 /hpf (0-5) H 03/06/16 10:44 Urine WBC 0-2 /hpf (0-5) 03/06/16 10:44 Ur Epithelial Cells OCCASIONAL /lpf (FEW) 03/06/16 10:44 Urine Bacteria OCCASIONAL /hpf (NONE SEEN) 03/06/16 10:44 Urine Yeast FEW /hpf (NONE SEEN) H 03/06/16 10:44 Urine Sperm FEW /hpf (NONE SEEN) 03/06/16 10:44 Vancomycin Trough 22.9 ug/mL (10-20) H 03/08/16 11:00 Urine Opiates Screen NEGATIVE (NEGATIVE) 03/06/16 10:35 Ur Barbiturates Screen NEGATIVE (NEGATIVE) 03/06/16 10:35 Ur Phencyclidine Scrn NEGATIVE (NEGATIVE) 03/06/16 10:35 Amphetamines Screen NEGATIVE (NEGATIVE) 03/06/16 10:35 U Methamphetamines Scrn NEGATIVE (NEGATIVE) 03/06/16 10:35 U Benzodiazepines Scrn NEGATIVE (NEGATIVE) 03/06/16 10:35 U Cocaine Metab Screen NEGATIVE (NEGATIVE) 03/06/16 10:35 U Cannabinoids Screen NEGATIVE (NEGATIVE) 03/06/16 10:35 - Physical Exam Vitals and I&O: Vital Signs Temp 98.8 F 03/08/16 15:45 Pulse 81 03/08/16 15:45 Resp 20 03/08/16 15:45 BP 121/81 03/08/16 17:19 Pulse Ox 96 03/08/16 15:45 Intake & Output 03/08/16 03/08/16 03/09/16 06:59 18:59 06:59 Intake Total 100 600 Balance 100 600 Intake: Oral 100 600 Other: # Voids 3 3 # Bowel Movements 1 Active Medications: Current Medications Albuterol Sulfate (Albuterol 2.5mg/3ml Neb Ud) 2.5 mg HHN Q4HRT [facility] Stop: 05/05/16 14:59 Last Admin: 03/08/16 19:27 Dose: 2.5 mg Albuterol/Ipratropium (Duoneb Neb) 3 ml HHN Q2HRT PRN PRN Reason: Shortness of Breath Stop: 05/05/16 13:03 Carvedilol (Coreg) 3.125 mg PO Q12HR [facility] Stop: 05/05/16 20:59 Last Admin: 03/08/16 10:11 Dose: Not Given Furosemide (Lasix) 40 mg IVP BID [facility] Stop: 05/06/16 16:59 Last Admin: 03/08/16 17:19 Dose: 40 mg Vancomycin HCl 1.25 gm/ Sodium (Chloride) 250 mls @ 165 mls/hr IV Q12H [facility] Stop: 05/07/16 14:59 Last Admin: 03/08/16 14:12 Dose: 165 mls/hr Ibuprofen (Motrin) 800 mg PO TID PRN PRN Reason: Pain (Mild) Stop: 05/06/16 16:59 Last Admin: 03/07/16 22:00 Dose: 800 mg Insulin Aspart (Novolog Insulin Sliding Scale) 0 units SUBQ ACHS [facility] PRN Reason: Protocol Stop: 05/05/16 16:29 Last Admin: 03/08/16 17:22 Dose: Not Given Insulin Detemir (Levemir Insulin) 15 units SUBQ BID [facility] PRN Reason: Protocol Stop: 05/06/16 16:59 Last Admin: 03/08/16 17:21 Dose: 15 units Ipratropium [place] (Atrovent Neb 0.5mg/2.5ml) 0.5 mg HHN Q4HRT [facility] Stop: 05/05/16 14:59 Last Admin: 03/08/16 19:28 Dose: 0.5 mg Metformin HCl (Glucophage) 1,000 mg PO BIDWM [facility] Stop: 05/05/16 17:59 Last Admin: 03/08/16 17:21 Dose: 1,000 mg Miscellaneous (Vancomycin Iv Per Pharmacy) 1 ea MC DAILY [facility] Stop: 05/06/16 08:59 Mupirocin (Bactroban Oint) 1 appl TP BID [facility] Stop: 03/13/16 08:59 Last Admin: 03/08/16 17:21 Dose: 1 appl Potassium Chloride (Klor-Con) 10 meq PO DAILY [facility] Stop: 05/06/16 08:59 Last Admin: 03/08/16 09:59 Dose: 10 meq Ramipril (Altace) 5 mg PO DAILY [facility] Stop: 05/07/16 08:59 Last Admin: 03/08/16 09:59 Dose: 5 mg Cardiovascular: Regular rate, Normal S1, Normal S2 Lungs: Clear to auscultation Abdomen: Soft, no Tender Skin: Significant lesion (on the fcace and neck area) - Procedures Procedures: Procedures Procedure Code Date JUAN DIEGO BONE 20 SQ CM/< 56985 02/11/15 EXCISION OF RIGHT RADIUS, OPEN APPROACH [id number] 02/11/15 Assessment/Plan - Problem List Patient Problems: All Active Problems COUGH WITH CONGESTION AND FACIAL LESIONS (Acute) Arm pain (Acute) - Assessment Assessment: Systolic heart failure Uncontrolled diabetes HTN Facial cellulitis Smoking Non compliance - Plan Plan: Continue Lasix Continue Basal bolus insulin Continue Vancomycin Follow labs and chest xray in am Plan of care discussed with pt
[2016-03-09] MEDS: Albuterol Nebulizer 2.5mg/3mL HHN SCH ×6 (02:23→22:15)
[2016-03-09] MEDS: Ipratropium Neb 0.5 mg/2.5 mL UD HHN SCH ×6 (02:23→22:14)
[2016-03-09 05:54] LABS: % BASOPHILS 2.2 % (0.0-2.0); % EOSINOPHILS 7.8 % (0.0-5.0); % LYMPHOCYTES 18.3 % (20.0-50.0); % MONOCYTES 3.9 % (2.0-10.0); % NEUTROPHILS 67.8 % (40.0-80.0); HEMATOCRIT 42.3 % (39.0-49.0); HEMOGLOBIN 13.9 gm/dL (13.2-17.3); MEAN CELL VOLUME 92.4 fl (80-99); MEAN CORPUSCULAR HEMOGLOBIN 30.4 pg (26.0-30.0); MEAN CORPUSCULAR HGB CONC 32.9 pg (28.0-36.0); MEAN PLATELET VOLUME 9.1 fl; NEUTROPHILE ABSOLUTE 7.7 Th/cmm (1.8-8.0); PLATELET COUNT 382 Th/cmm (150-400); RED BLOOD COUNT 4.58 Mil/cmm (4.30-5.70); RED CELL DISTRIBUTION WIDTH 12.4 % (11.5-20.0); WHITE BLOOD COUNT 11.3 Th/cmm (4.8-10.8)
[2016-03-09 06:13] LABS: ANION GAP 9.5 (7.0-16.0); BUN - UREA NITROGEN 41 mg/dL (7-25); BUN/CREATININE RATIO 45.6; CALCIUM SERUM 9.9 mg/dL (8.6-10.3); CARBON DIOXIDE 31.5 mEq/L (21.0-31.0); CHLORIDE 99 mEq/L (98-107); CREATININE - SERUM 0.9 mg/dL (0.7-1.3); GLUCOSE 70 mg/dL (70-105); SODIUM SERUM 136 mEq/L (136-145)
[2016-03-09] MEDS: INSULIN ASPART SLIDING SCALE 100 UNITS/ML UNIT SUBQ SCH ×4 (06:31→21:11)
[2016-03-09] MEDS: Insulin Detemir 100 units/mL 10mL Vial SUBQ SCH ×2 (09:35→17:00)
[2016-03-09] MEDS: Potassium Chloride 10 mEq ER Tab PO SCH (09:36)
--- NOTE | 2016-03-09 11:50 | Diagnostic Imaging Report ---
CHEST X-RAY: AP view INDICATION: CHF COMPARISON: 03/07/2016 FINDINGS: Mild congestive changes are again noted. Resolving small bilateral effusions are noted. Heart size is normal. No consolidation. There is evidence of old left AC joint separation. IMPRESSION: Mild congestive changes with resolving small bilateral effusions.
[2016-03-09 13:56] LABS: % BASOPHILS 0.4 % (0.0-2.0); % EOSINOPHILS 8.1 % (0.0-5.0); % LYMPHOCYTES 10.4 % (20.0-50.0); % MONOCYTES 5.5 % (2.0-10.0); % NEUTROPHILS 75.6 % (40.0-80.0); HEMATOCRIT 43.2 % (39.0-49.0); HEMOGLOBIN 14.2 gm/dL (13.2-17.3); MEAN CELL VOLUME 93.2 fl (80-99); MEAN CORPUSCULAR HEMOGLOBIN 30.8 pg (26.0-30.0); MEAN PLATELET VOLUME 8.8 fl; NEUTROPHILE ABSOLUTE 8.3 Th/cmm (1.8-8.0); PLATELET COUNT 386 Th/cmm (150-400); RED BLOOD COUNT 4.63 Mil/cmm (4.30-5.70); RED CELL DISTRIBUTION WIDTH 12.6 % (11.5-20.0); WHITE BLOOD COUNT 10.9 Th/cmm (4.8-10.8)
[2016-03-09 14:15] LABS: ANION GAP 5.7 (7.0-16.0); BUN - UREA NITROGEN 39 mg/dL (7-25); BUN/CREATININE RATIO 32.5; CALCIUM SERUM 10.9 mg/dL (8.6-10.3); CARBON DIOXIDE 35.2 mEq/L (21.0-31.0); CHLORIDE 97 mEq/L (98-107); CREATININE - SERUM 1.2 mg/dL (0.7-1.3); GLUCOSE 95 mg/dL (70-105); POTASSIUM SERUM 4.9 mEq/L (3.5-5.1); SODIUM SERUM 133 mEq/L (136-145)
--- NOTE | 2016-03-09 14:16 | Cardiology ---
Patient of Dr. Adithya Hernandes. M-MODE ECHOCARDIOGRAM: Mitral valve, anterior leaflet of mitral valve shows decreased excursion, EF velocity. Posterior leaflet of mitral valve shows decreased excursion. Left ventricular posterior wall shows increased thickness, decreased excursion. Interventricular septum shows increased thickness, decreased excursion, ejection fraction 30%. Left atrium normal. Aortic root shows normal dimension, normal excursion of aortic leaflets. CONCLUSION: Cardiomyopathy, ejection fraction 30%, hypertrophy of the left ventricle. 2D ECHO: Long axis view shows enlarged left ventricular cavity with global hypokinesis, hypertrophy of the left ventricle, ejection fraction 30%. Left atrium normal. Aortic root shows normal dimension, normal excursion of aortic leaflets. Short axis view of mitral valve normal. Short axis view of aortic valve normal. Apical four chamber view shows enlarged left ventricular cavity with decreased ejection fraction. Left atrium, normal right ventricular cavity normal. Right atrium enlarged. CONCLUSION: Left atrial enlargement. Right atrial enlargement, cardiomyopathy, ejection fraction 30%. Doppler study shows moderate mitral regurgitation, mild tricuspid regurgitation, pulmonary regurgitation, right ventricular systolic pressure 54 mmHg with moderate pulmonary hypertension. JOB# [id number]
--- NOTE | 2016-03-09 14:56 | Infectious Disease Prog Note ---
Infectious Disease Subjective - Review of Systems Service Date: 03/09/16 Subjective: There is no new change. Infectious Disease Objective - Results Result Diagrams: 03/09/16 13:45 03/09/16 13:45 Recent Labs: Laboratory Last Values WBC 10.9 Th/cmm (4.8-10.8) H 03/09/16 13:45 RBC 4.63 Mil/cmm (4.30-5.70) 03/09/16 13:45 Hgb 14.2 gm/dL (13.2-17.3) 03/09/16 13:45 Hct 43.2 % (39.0-49.0) 03/09/16 13:45 MCV 93.2 fl (80-99) 03/09/16 13:45 MCH 30.8 pg (26.0-30.0) H 03/09/16 13:45 MCHC Differential 33.0 pg (28.0-36.0) 03/09/16 13:45 RDW 12.6 % (11.5-20.0) 03/09/16 13:45 Plt Count 386 Th/cmm (150-400) 03/09/16 13:45 MPV 8.8 fl 03/09/16 13:45 Neutrophils % 75.6 % (40.0-80.0) 03/09/16 13:45 Band Neutrophils % 6 % (0-10) 03/07/16 06:07 Lymphocytes % 10.4 % (20.0-50.0) L 03/09/16 13:45 Monocytes % 5.5 % (2.0-10.0) 03/09/16 13:45 Eosinophils % 8.1 % (0.0-5.0) H 03/09/16 13:45 Basophils % 0.4 % (0.0-2.0) 03/09/16 13:45 Neutrophils (Manual) 86 % (40-80) H 03/07/16 06:07 Lymphocytes 4 % (20-50) L 03/07/16 06:07 Monocytes 4 % (2-10) 03/07/16 06:07 Platelet Estimate ADEQUATE (NORMAL) 03/07/16 06:07 Platelet Morphology NORMAL (NORMAL) 03/07/16 06:07 RBC Morph Micro Appear NORMAL (NORMAL) 03/07/16 06:07 PT 9.8 SECONDS (9.5-11.5) 03/06/16 11:05 INR 0.99 (0.5-1.4) 03/06/16 11:05 PTT (Actin FS) 24.1 SECONDS (26.0-38.0) L 03/06/16 11:05 Sodium 133 mEq/L (136-145) L 03/09/16 13:45 Potassium 4.9 mEq/L (3.5-5.1) 03/09/16 13:45 Chloride 97 mEq/L (98-107) L 03/09/16 13:45 Carbon Dioxide 35.2 mEq/L (21.0-31.0) H 03/09/16 13:45 Anion Gap 5.7 (7.0-16.0) L 03/09/16 13:45 BUN 39 mg/dL (7-25) H 03/09/16 13:45 Creatinine 1.2 mg/dL (0.7-1.3) 03/09/16 13:45 Est GFR ( Amer) > 60.0 ml/min (>90) 03/09/16 13:45 Est GFR (Non-Af Amer) > 60.0 ml/min 03/09/16 13:45 BUN/Creatinine Ratio 32.5 03/09/16 13:45 Glucose 95 mg/dL (70-105) 03/09/16 13:45 POC Glucose 312 MG/DL (70 - 105) H 03/09/16 11:09 Hemoglobin A1c % 12.9 % (4.0-6.0) H 03/06/16 11:05 Whole Bld Lactic Acid 1.57 mmol/L (0.60-2.00) 03/06/16 11:05 Calcium 10.9 mg/dL (8.6-10.3) H 03/09/16 13:45 Total Bilirubin 0.4 mg/dL (0.3-1.0) 03/06/16 11:05 AST 44 U/L (13-39) H 03/06/16 11:05 ALT 58 U/L (7-52) H 03/06/16 11:05 Alkaline Phosphatase 241 U/L (34-104) H 03/06/16 11:05 Creatine Kinase 73 U/L (30-223) 03/06/16 11:05 B-Natriuretic Peptide 2400.0 pg/mL (5.0-100.0) H 03/09/16 05:23 Total Protein 7.5 gm/dL (6.0-8.3) 03/06/16 11:05 Albumin 3.3 gm/dL (4.2-5.5) L 03/06/16 11:05 Globulin 4.2 gm/dL 03/06/16 11:05 Albumin/Globulin Ratio 0.8 (1.0-1.8) L 03/06/16 11:05 Triglycerides 202 mg/dL (<150) H 03/08/16 05:45 Cholesterol 168 mg/dL (<200) 03/08/16 05:45 LDL Cholesterol Direct 105 mg/dL (75-193) 03/08/16 05:45 HDL Cholesterol 50 mg/dL (23-92) 03/08/16 05:45 Urine Source CLEAN C 03/06/16 10:44 Urine Color YELLOW 03/06/16 10:44 Urine Clarity CLEAR (CLEAR) 03/06/16 10:44 Urine pH 6.0 03/06/16 10:44 Ur Specific [place] 1.015 (1.005-1.030) 03/06/16 10:44 Urine Protein 100 mg/dL (NEGATIVE) H 03/06/16 10:44 Urine Glucose (UA) 500 mg/dL (NEGATIVE) H 03/06/16 10:44 Urine Ketones NEGATIVE mg/dL (NEGATIVE) 03/06/16 10:44 Urine Blood SMALL (NEGATIVE) H 03/06/16 10:44 Urine Nitrate NEGATIVE (NEGATIVE) 03/06/16 10:44 Urine Bilirubin NEGATIVE (NEGATIVE) 03/06/16 10:44 Urine Urobilinogen 0.2 E.U./dL (0.2 - 1.0) 03/06/16 10:44 Ur Leukocyte Esterase NEGATIVE (NEGATIVE) 03/06/16 10:44 Urine RBC 2-5 /hpf (0-5) H 03/06/16 10:44 Urine WBC 0-2 /hpf (0-5) 03/06/16 10:44 Ur Epithelial Cells OCCASIONAL /lpf (FEW) 03/06/16 10:44 Urine Bacteria OCCASIONAL /hpf (NONE SEEN) 03/06/16 10:44 Urine Yeast FEW /hpf (NONE SEEN) H 03/06/16 10:44 Urine Sperm FEW /hpf (NONE SEEN) 03/06/16 10:44 Vancomycin Trough 24.3 ug/mL (10-20) H 03/09/16 13:45 Urine Opiates Screen NEGATIVE (NEGATIVE) 03/06/16 10:35 Ur Barbiturates Screen NEGATIVE (NEGATIVE) 03/06/16 10:35 Ur Phencyclidine Scrn NEGATIVE (NEGATIVE) 03/06/16 10:35 Amphetamines Screen NEGATIVE (NEGATIVE) 03/06/16 10:35 U Methamphetamines Scrn NEGATIVE (NEGATIVE) 03/06/16 10:35 U Benzodiazepines Scrn NEGATIVE (NEGATIVE) 03/06/16 10:35 U Cocaine Metab Screen NEGATIVE (NEGATIVE) 03/06/16 10:35 U Cannabinoids Screen NEGATIVE (NEGATIVE) 03/06/16 10:35 - Physical Exam Vitals and I&O: Vital Signs Temp 97.7 F 03/09/16 11:21 Pulse 97 03/09/16 11:21 Resp 18 03/09/16 11:21 BP 115/77 03/09/16 11:21 Pulse Ox 98 03/09/16 11:21 Intake & Output 03/08/16 03/09/16 03/09/16 18:59 06:59 18:59 Intake Total 850 250 Balance 850 250 Intake: Intake, IV Amount 250 Vancomycin HCl 1.25 gm In 250 Sodium Chloride 0.9% 250 ml @ 165 mls/hr IV Q12H [facility] Rx#:[id number] Oral 600 250 Other: # Voids 3 3 # Bowel Movements 1 Active Medications: Current Medications Albuterol Sulfate (Albuterol 2.5mg/3ml Neb Ud) 2.5 mg HHN Q4HRT [facility] Stop: 05/05/16 14:59 Last Admin: 03/09/16 11:40 Dose: 2.5 mg Albuterol/Ipratropium (Duoneb Neb) 3 ml HHN Q2HRT PRN PRN Reason: Shortness of Breath Stop: 05/05/16 13:03 Carvedilol (Coreg) 3.125 mg PO Q12HR [facility] Stop: 05/05/16 20:59 Last Admin: 03/09/16 09:36 Dose: 3.125 mg Furosemide (Lasix) 40 mg IVP BID [facility] Stop: 05/06/16 16:59 Last Admin: 03/09/16 09:35 Dose: 40 mg Vancomycin HCl 1.25 gm/ Sodium (Chloride) 250 mls @ 165 mls/hr IV Q24H [facility] Stop: 05/09/16 08:59 Ibuprofen (Motrin) 800 mg PO TID PRN PRN Reason: Pain (Mild) Stop: 05/06/16 16:59 Last Admin: 03/07/16 22:00 Dose: 800 mg Insulin Aspart (Novolog Insulin Sliding Scale) 0 units SUBQ ACHS [facility] PRN Reason: Protocol Stop: 05/05/16 16:29 Last Admin: 03/09/16 12:13 Dose: 9 units Insulin Detemir (Levemir Insulin) 15 units SUBQ BID [facility] PRN Reason: Protocol Stop: 05/06/16 16:59 Last Admin: 03/09/16 09:35 Dose: 15 units Ipratropium [place] (Atrovent Neb 0.5mg/2.5ml) 0.5 mg HHN Q4HRT [facility] Stop: 05/05/16 14:59 Last Admin: 03/09/16 11:40 Dose: 0.5 mg Metformin HCl (Glucophage) 1,000 mg PO BIDWM [facility] Stop: 05/05/16 17:59 Last Admin: 03/09/16 09:40 Dose: 1,000 mg Miscellaneous (Vancomycin Iv Per Pharmacy) 1 ea MC DAILY [facility] Stop: 05/06/16 08:59 Mupirocin (Bactroban Oint) 1 appl TP BID [facility] Stop: 03/13/16 08:59 Last Admin: 03/09/16 09:36 Dose: 1 appl Potassium Chloride (Klor-Con) 10 meq PO DAILY [facility] Stop: 05/06/16 08:59 Last Admin: 03/09/16 09:36 Dose: 10 meq Ramipril (Altace) 5 mg PO DAILY [facility] Stop: 05/07/16 08:59 Last Admin: 03/09/16 09:35 Dose: 5 mg General: no acute distress, well developed, well nourished HEENT: atraumatic, normocephalic, PERRLA, moist mucous membrane Neck: supple, no thyromegaly, no lymphadenopathy Cardiovascular: S1S2, regular Lungs: clear to auscultation bilaterally, clear to percussion Abdomen: soft, no tender, no distended Extremities: no cyanosis, no clubbing, no edema Neurological: no awake, no alert, no oriented - Procedures Procedures: Procedures Procedure Code Date JUAN DIEGO BONE 20 SQ CM/< 68370 02/11/15 EXCISION OF RIGHT RADIUS, OPEN APPROACH [id number] 02/11/15 Infectious Disease Assmt/Plan - Problem List Patient Problems: All Active Problems COUGH WITH CONGESTION AND FACIAL LESIONS (Acute) Arm pain (Acute) - Assessment Assessment: Impression: 1. Chin/ facial cellulitis. 2. DM2 3. Folliculitis, acne of the face and neck. - Plan Plan: Continue vanco IV.
--- NOTE | 2016-03-09 20:49 | General Progress Note ---
Subjective - Review of Systems Service Date: 03/09/16 Subjective: Patient doing fine new concern BNP better Objective - Results Result Diagrams: 03/09/16 13:45 03/09/16 13:45 Recent Labs: Laboratory Last Values WBC 10.9 Th/cmm (4.8-10.8) H 03/09/16 13:45 RBC 4.63 Mil/cmm (4.30-5.70) 03/09/16 13:45 Hgb 14.2 gm/dL (13.2-17.3) 03/09/16 13:45 Hct 43.2 % (39.0-49.0) 03/09/16 13:45 MCV 93.2 fl (80-99) 03/09/16 13:45 MCH 30.8 pg (26.0-30.0) H 03/09/16 13:45 MCHC Differential 33.0 pg (28.0-36.0) 03/09/16 13:45 RDW 12.6 % (11.5-20.0) 03/09/16 13:45 Plt Count 386 Th/cmm (150-400) 03/09/16 13:45 MPV 8.8 fl 03/09/16 13:45 Neutrophils % 75.6 % (40.0-80.0) 03/09/16 13:45 Band Neutrophils % 6 % (0-10) 03/07/16 06:07 Lymphocytes % 10.4 % (20.0-50.0) L 03/09/16 13:45 Monocytes % 5.5 % (2.0-10.0) 03/09/16 13:45 Eosinophils % 8.1 % (0.0-5.0) H 03/09/16 13:45 Basophils % 0.4 % (0.0-2.0) 03/09/16 13:45 Neutrophils (Manual) 86 % (40-80) H 03/07/16 06:07 Lymphocytes 4 % (20-50) L 03/07/16 06:07 Monocytes 4 % (2-10) 03/07/16 06:07 Platelet Estimate ADEQUATE (NORMAL) 03/07/16 06:07 Platelet Morphology NORMAL (NORMAL) 03/07/16 06:07 RBC Morph Micro Appear NORMAL (NORMAL) 03/07/16 06:07 PT 9.8 SECONDS (9.5-11.5) 03/06/16 11:05 INR 0.99 (0.5-1.4) 03/06/16 11:05 PTT (Actin FS) 24.1 SECONDS (26.0-38.0) L 03/06/16 11:05 Sodium 133 mEq/L (136-145) L 03/09/16 13:45 Potassium 4.9 mEq/L (3.5-5.1) 03/09/16 13:45 Chloride 97 mEq/L (98-107) L 03/09/16 13:45 Carbon Dioxide 35.2 mEq/L (21.0-31.0) H 03/09/16 13:45 Anion Gap 5.7 (7.0-16.0) L 03/09/16 13:45 BUN 39 mg/dL (7-25) H 03/09/16 13:45 Creatinine 1.2 mg/dL (0.7-1.3) 03/09/16 13:45 Est GFR ( Amer) > 60.0 ml/min (>90) 03/09/16 13:45 Est GFR (Non-Af Amer) > 60.0 ml/min 03/09/16 13:45 BUN/Creatinine Ratio 32.5 03/09/16 13:45 Glucose 95 mg/dL (70-105) 03/09/16 13:45 POC Glucose 101 MG/DL (70 - 105) 03/09/16 16:39 Hemoglobin A1c % 12.9 % (4.0-6.0) H 03/06/16 11:05 Whole Bld Lactic Acid 1.57 mmol/L (0.60-2.00) 03/06/16 11:05 Calcium 10.9 mg/dL (8.6-10.3) H 03/09/16 13:45 Total Bilirubin 0.4 mg/dL (0.3-1.0) 03/06/16 11:05 AST 44 U/L (13-39) H 03/06/16 11:05 ALT 58 U/L (7-52) H 03/06/16 11:05 Alkaline Phosphatase 241 U/L (34-104) H 03/06/16 11:05 Creatine Kinase 73 U/L (30-223) 03/06/16 11:05 B-Natriuretic Peptide 2400.0 pg/mL (5.0-100.0) H 03/09/16 05:23 Total Protein 7.5 gm/dL (6.0-8.3) 03/06/16 11:05 Albumin 3.3 gm/dL (4.2-5.5) L 03/06/16 11:05 Globulin 4.2 gm/dL 03/06/16 11:05 Albumin/Globulin Ratio 0.8 (1.0-1.8) L 03/06/16 11:05 Triglycerides 202 mg/dL (<150) H 03/08/16 05:45 Cholesterol 168 mg/dL (<200) 03/08/16 05:45 LDL Cholesterol Direct 105 mg/dL (75-193) 03/08/16 05:45 HDL Cholesterol 50 mg/dL (23-92) 03/08/16 05:45 Urine Source CLEAN C 03/06/16 10:44 Urine Color YELLOW 03/06/16 10:44 Urine Clarity CLEAR (CLEAR) 03/06/16 10:44 Urine pH 6.0 03/06/16 10:44 Ur Specific [place] 1.015 (1.005-1.030) 03/06/16 10:44 Urine Protein 100 mg/dL (NEGATIVE) H 03/06/16 10:44 Urine Glucose (UA) 500 mg/dL (NEGATIVE) H 03/06/16 10:44 Urine Ketones NEGATIVE mg/dL (NEGATIVE) 03/06/16 10:44 Urine Blood SMALL (NEGATIVE) H 03/06/16 10:44 Urine Nitrate NEGATIVE (NEGATIVE) 03/06/16 10:44 Urine Bilirubin NEGATIVE (NEGATIVE) 03/06/16 10:44 Urine Urobilinogen 0.2 E.U./dL (0.2 - 1.0) 03/06/16 10:44 Ur Leukocyte Esterase NEGATIVE (NEGATIVE) 03/06/16 10:44 Urine RBC 2-5 /hpf (0-5) H 03/06/16 10:44 Urine WBC 0-2 /hpf (0-5) 03/06/16 10:44 Ur Epithelial Cells OCCASIONAL /lpf (FEW) 03/06/16 10:44 Urine Bacteria OCCASIONAL /hpf (NONE SEEN) 03/06/16 10:44 Urine Yeast FEW /hpf (NONE SEEN) H 03/06/16 10:44 Urine Sperm FEW /hpf (NONE SEEN) 03/06/16 10:44 Vancomycin Trough 24.3 ug/mL (10-20) H 03/09/16 13:45 Urine Opiates Screen NEGATIVE (NEGATIVE) 03/06/16 10:35 Ur Barbiturates Screen NEGATIVE (NEGATIVE) 03/06/16 10:35 Ur Phencyclidine Scrn NEGATIVE (NEGATIVE) 03/06/16 10:35 Amphetamines Screen NEGATIVE (NEGATIVE) 03/06/16 10:35 U Methamphetamines Scrn NEGATIVE (NEGATIVE) 03/06/16 10:35 U Benzodiazepines Scrn NEGATIVE (NEGATIVE) 03/06/16 10:35 U Cocaine Metab Screen NEGATIVE (NEGATIVE) 03/06/16 10:35 U Cannabinoids Screen NEGATIVE (NEGATIVE) 03/06/16 10:35 - Physical Exam Vitals and I&O: Vital Signs Temp 98.1 F 03/09/16 20:00 Pulse 99 03/09/16 20:00 Resp 18 03/09/16 20:00 BP 134/90 03/09/16 20:00 Pulse Ox 98 03/09/16 20:00 Intake & Output 03/09/16 03/09/16 03/10/16 06:59 18:59 06:59 Intake Total 250 800 Balance 250 800 Intake: Oral 250 800 Other: # Voids 3 Active Medications: Current Medications Albuterol Sulfate (Albuterol 2.5mg/3ml Neb Ud) 2.5 mg HHN Q4HRT [facility] Stop: 05/05/16 14:59 Last Admin: 03/09/16 19:10 Dose: 2.5 mg Albuterol/Ipratropium (Duoneb Neb) 3 ml HHN Q2HRT PRN PRN Reason: Shortness of Breath Stop: 05/05/16 13:03 Carvedilol (Coreg) 3.125 mg PO Q12HR [facility] Stop: 05/05/16 20:59 Last Admin: 03/09/16 09:36 Dose: 3.125 mg Furosemide (Lasix) 40 mg IVP BID [facility] Stop: 05/06/16 16:59 Last Admin: 03/09/16 18:53 Dose: 40 mg Vancomycin HCl 1.25 gm/ Sodium (Chloride) 250 mls @ 165 mls/hr IV Q24H [facility] Stop: 05/09/16 08:59 Ibuprofen (Motrin) 800 mg PO TID PRN PRN Reason: Pain (Mild) Stop: 05/06/16 16:59 Last Admin: 03/07/16 22:00 Dose: 800 mg Insulin Aspart (Novolog Insulin Sliding Scale) 0 units SUBQ ACHS [facility] PRN Reason: Protocol Stop: 05/05/16 16:29 Last Admin: 03/09/16 17:00 Dose: Not Given Insulin Detemir (Levemir Insulin) 15 units SUBQ BID [facility] PRN Reason: Protocol Stop: 05/06/16 16:59 Last Admin: 03/09/16 17:00 Dose: Not Given Ipratropium [place] (Atrovent Neb 0.5mg/2.5ml) 0.5 mg HHN Q4HRT [facility] Stop: 05/05/16 14:59 Last Admin: 03/09/16 19:10 Dose: 0.5 mg Metformin HCl (Glucophage) 1,000 mg PO BIDWM [facility] Stop: 05/05/16 17:59 Last Admin: 03/09/16 18:53 Dose: 1,000 mg Miscellaneous (Vancomycin Iv Per Pharmacy) 1 ea MC DAILY [facility] Stop: 05/06/16 08:59 Mupirocin (Bactroban Oint) 1 appl TP BID [facility] Stop: 03/13/16 08:59 Last Admin: 03/09/16 18:54 Dose: 1 appl Potassium Chloride (Klor-Con) 10 meq PO DAILY [facility] Stop: 05/06/16 08:59 Last Admin: 03/09/16 09:36 Dose: 10 meq Ramipril (Altace) 5 mg PO DAILY [facility] Stop: 05/07/16 08:59 Last Admin: 03/09/16 09:35 Dose: 5 mg Cardiovascular: Normal S1, Normal S2 Lungs: Clear to auscultation Abdomen: Soft, no Tender - Procedures Procedures: Procedures Procedure Code Date JUAN DIEGO BONE 20 SQ CM/< 61690 02/11/15 EXCISION OF RIGHT RADIUS, OPEN APPROACH [id number] 02/11/15 Assessment/Plan - Problem List Patient Problems: All Active Problems COUGH WITH CONGESTION AND FACIAL LESIONS (Acute) Arm pain (Acute) - Assessment Assessment: Systolic heart failure Uncontrolled diabetes HTN Facial cellulitis Smoking Non compliance - Plan Plan: Patient improving Continue Lasix Continue Basal bolus insulin Continue Vancomycin. Case discussed with ID who agreed to switch to oral antibiotics upon discharge DC plan for home in am if stable
[2016-03-10] MEDS: Albuterol Nebulizer 2.5mg/3mL HHN SCH ×3 (04:59→13:42)
[2016-03-10] MEDS: Ipratropium Neb 0.5 mg/2.5 mL UD HHN SCH ×3 (04:59→13:43)
[2016-03-10] MEDS: INSULIN ASPART SLIDING SCALE 100 UNITS/ML UNIT SUBQ SCH ×2 (06:48→12:14)
[2016-03-10 06:57] LABS: % EOSINOPHILS 11.5 % (0.0-5.0); % LYMPHOCYTES 18.6 % (20.0-50.0); % MONOCYTES 7.2 % (2.0-10.0); % NEUTROPHILS 61.7 % (40.0-80.0); HEMOGLOBIN 14.3 gm/dL (13.2-17.3); MEAN CELL VOLUME 91.8 fl (80-99); MEAN CORPUSCULAR HEMOGLOBIN 30.5 pg (26.0-30.0); MEAN CORPUSCULAR HGB CONC 33.3 pg (28.0-36.0); MEAN PLATELET VOLUME 9.5 fl; NEUTROPHILE ABSOLUTE 5.5 Th/cmm (1.8-8.0); PLATELET COUNT 376 Th/cmm (150-400); RED BLOOD COUNT 4.69 Mil/cmm (4.30-5.70); RED CELL DISTRIBUTION WIDTH 12.5 % (11.5-20.0); WHITE BLOOD COUNT 8.9 Th/cmm (4.8-10.8)
[2016-03-10 07:27] LABS: ANION GAP 8.4 (7.0-16.0); BUN - UREA NITROGEN 37 mg/dL (7-25); BUN/CREATININE RATIO 41.1; CALCIUM SERUM 10.2 mg/dL (8.6-10.3); CARBON DIOXIDE 30.3 mEq/L (21.0-31.0); CHLORIDE 97 mEq/L (98-107); CREATININE - SERUM 0.9 mg/dL (0.7-1.3); GLUCOSE 145 mg/dL (70-105); POTASSIUM SERUM 3.7 mEq/L (3.5-5.1); SODIUM SERUM 132 mEq/L (136-145)
[2016-03-10 07:28] LABS: VANCOMYCIN RANDOM 11.2 ug/mL (5.0-40.0)
[2016-03-10] MEDS ORDERED: Vancomycin HCl 1.5 GM in Sodium Chloride 0.9% 500 ML IV SCH (08:00)
[2016-03-10] MEDS: Potassium Chloride 10 mEq ER Tab PO SCH (08:44)
[2016-03-10] MEDS: Insulin Detemir 100 units/mL 10mL Vial SUBQ SCH (08:45)
--- NOTE | 2016-03-10 13:12 | Diagnostic Imaging Report ---
CHEST X-RAY: AP view INDICATION: CHF COMPARISON: Chest x-ray 03/09/2016 FINDINGS: Increased interstitial lung markings are noted. No focal consolidation pleural effusions. Heart size is normal. IMPRESSION: Increased interstitial lung markings, nonspecific. No evidence of chris CHF.
--- NOTE | 2016-03-10 17:05 | General Progress Note ---
Subjective - Review of Systems Service Date: 03/10/16 Subjective: Patient doing much better denied shortness of breath or chest pain or dizziness or any other complaints Objective - Results Result Diagrams: 03/10/16 06:04 03/10/16 06:04 Recent Labs: Laboratory Last Values WBC 8.9 Th/cmm (4.8-10.8) 03/10/16 06:04 RBC 4.69 Mil/cmm (4.30-5.70) 03/10/16 06:04 Hgb 14.3 gm/dL (13.2-17.3) 03/10/16 06:04 Hct 43.0 % (39.0-49.0) 03/10/16 06:04 MCV 91.8 fl (80-99) 03/10/16 06:04 MCH 30.5 pg (26.0-30.0) H 03/10/16 06:04 MCHC Differential 33.3 pg (28.0-36.0) 03/10/16 06:04 RDW 12.5 % (11.5-20.0) 03/10/16 06:04 Plt Count 376 Th/cmm (150-400) 03/10/16 06:04 MPV 9.5 fl 03/10/16 06:04 Neutrophils % 61.7 % (40.0-80.0) 03/10/16 06:04 Band Neutrophils % 6 % (0-10) 03/07/16 06:07 Lymphocytes % 18.6 % (20.0-50.0) L 03/10/16 06:04 Monocytes % 7.2 % (2.0-10.0) 03/10/16 06:04 Eosinophils % 11.5 % (0.0-5.0) H 03/10/16 06:04 Basophils % 1.0 % (0.0-2.0) 03/10/16 06:04 Neutrophils (Manual) 86 % (40-80) H 03/07/16 06:07 Lymphocytes 4 % (20-50) L 03/07/16 06:07 Monocytes 4 % (2-10) 03/07/16 06:07 Platelet Estimate ADEQUATE (NORMAL) 03/07/16 06:07 Platelet Morphology NORMAL (NORMAL) 03/07/16 06:07 RBC Morph Micro Appear NORMAL (NORMAL) 03/07/16 06:07 PT 9.8 SECONDS (9.5-11.5) 03/06/16 11:05 INR 0.99 (0.5-1.4) 03/06/16 11:05 PTT (Actin FS) 24.1 SECONDS (26.0-38.0) L 03/06/16 11:05 Sodium 132 mEq/L (136-145) L 03/10/16 06:04 Potassium 3.7 mEq/L (3.5-5.1) 03/10/16 06:04 Chloride 97 mEq/L (98-107) L 03/10/16 06:04 Carbon Dioxide 30.3 mEq/L (21.0-31.0) 03/10/16 06:04 Anion Gap 8.4 (7.0-16.0) 03/10/16 06:04 BUN 37 mg/dL (7-25) H 03/10/16 06:04 Creatinine 0.9 mg/dL (0.7-1.3) 03/10/16 06:04 Est GFR ( Amer) > 60.0 ml/min (>90) 03/10/16 06:04 Est GFR (Non-Af Amer) > 60.0 ml/min 03/10/16 06:04 BUN/Creatinine Ratio 41.1 03/10/16 06:04 Glucose 145 mg/dL (70-105) H 03/10/16 06:04 POC Glucose 222 MG/DL (70 - 105) H 03/10/16 11:12 Hemoglobin A1c % 12.9 % (4.0-6.0) H 03/06/16 11:05 Whole Bld Lactic Acid 1.57 mmol/L (0.60-2.00) 03/06/16 11:05 Calcium 10.2 mg/dL (8.6-10.3) 03/10/16 06:04 Total Bilirubin 0.4 mg/dL (0.3-1.0) 03/06/16 11:05 AST 44 U/L (13-39) H 03/06/16 11:05 ALT 58 U/L (7-52) H 03/06/16 11:05 Alkaline Phosphatase 241 U/L (34-104) H 03/06/16 11:05 Creatine Kinase 73 U/L (30-223) 03/06/16 11:05 B-Natriuretic Peptide 1100.0 pg/mL (5.0-100.0) H 03/10/16 06:04 Total Protein 7.5 gm/dL (6.0-8.3) 03/06/16 11:05 Albumin 3.3 gm/dL (4.2-5.5) L 03/06/16 11:05 Globulin 4.2 gm/dL 03/06/16 11:05 Albumin/Globulin Ratio 0.8 (1.0-1.8) L 03/06/16 11:05 Triglycerides 202 mg/dL (<150) H 03/08/16 05:45 Cholesterol 168 mg/dL (<200) 03/08/16 05:45 LDL Cholesterol Direct 105 mg/dL (75-193) 03/08/16 05:45 HDL Cholesterol 50 mg/dL (23-92) 03/08/16 05:45 Urine Source CLEAN C 03/06/16 10:44 Urine Color YELLOW 03/06/16 10:44 Urine Clarity CLEAR (CLEAR) 03/06/16 10:44 Urine pH 6.0 03/06/16 10:44 Ur Specific [place] 1.015 (1.005-1.030) 03/06/16 10:44 Urine Protein 100 mg/dL (NEGATIVE) H 03/06/16 10:44 Urine Glucose (UA) 500 mg/dL (NEGATIVE) H 03/06/16 10:44 Urine Ketones NEGATIVE mg/dL (NEGATIVE) 03/06/16 10:44 Urine Blood SMALL (NEGATIVE) H 03/06/16 10:44 Urine Nitrate NEGATIVE (NEGATIVE) 03/06/16 10:44 Urine Bilirubin NEGATIVE (NEGATIVE) 03/06/16 10:44 Urine Urobilinogen 0.2 E.U./dL (0.2 - 1.0) 03/06/16 10:44 Ur Leukocyte Esterase NEGATIVE (NEGATIVE) 03/06/16 10:44 Urine RBC 2-5 /hpf (0-5) H 03/06/16 10:44 Urine WBC 0-2 /hpf (0-5) 03/06/16 10:44 Ur Epithelial Cells OCCASIONAL /lpf (FEW) 03/06/16 10:44 Urine Bacteria OCCASIONAL /hpf (NONE SEEN) 03/06/16 10:44 Urine Yeast FEW /hpf (NONE SEEN) H 03/06/16 10:44 Urine Sperm FEW /hpf (NONE SEEN) 03/06/16 10:44 Vancomycin Trough 24.3 ug/mL (10-20) H 03/09/16 13:45 Random Vancomycin 11.2 ug/mL (5.0-40.0) 03/10/16 06:04 Urine Opiates Screen NEGATIVE (NEGATIVE) 03/06/16 10:35 Ur Barbiturates Screen NEGATIVE (NEGATIVE) 03/06/16 10:35 Ur Phencyclidine Scrn NEGATIVE (NEGATIVE) 03/06/16 10:35 Amphetamines Screen NEGATIVE (NEGATIVE) 03/06/16 10:35 U Methamphetamines Scrn NEGATIVE (NEGATIVE) 03/06/16 10:35 U Benzodiazepines Scrn NEGATIVE (NEGATIVE) 03/06/16 10:35 U Cocaine Metab Screen NEGATIVE (NEGATIVE) 03/06/16 10:35 U Cannabinoids Screen NEGATIVE (NEGATIVE) 03/06/16 10:35 - Physical Exam Vitals and I&O: Vital Signs Temp 97.7 F 03/10/16 12:00 Pulse 82 03/10/16 13:45 Resp 20 03/10/16 13:45 BP 130/76 03/10/16 12:00 Pulse Ox 96 03/10/16 13:45 Intake & Output 03/09/16 03/10/16 03/10/16 18:59 06:59 18:59 Intake Total 950 Balance 950 Intake: Oral 950 Other: # Voids 3 General: Alert, Oriented x3 Cardiovascular: Regular rate Lungs: Clear to auscultation Abdomen: Soft, no Tender - Procedures Procedures: Procedures Procedure Code Date JUAN DIEGO BONE 20 SQ CM/< 44192 02/11/15 EXCISION OF RIGHT RADIUS, OPEN APPROACH [id number] 02/11/15 Assessment/Plan - Problem List Patient Problems: All Active Problems Arm pain (Acute) COUGH WITH CONGESTION AND FACIAL LESIONS (Acute) - Assessment Assessment: Systolic heart failure Uncontrolled diabetes HTN Facial cellulitis Smoking Non compliance - Plan Plan: Patient better DC plan for home today Patient was highly advised to medication and treatment compliance Patient was advised to follow up with me in the office in one week Patient understood all the instruction well DC plan discussed with nursing staff Doxycyclin and Levemir scripts called in to patient's pharmacy Lasix with [facility] scripts written and given to the patient.
--- NOTE | 2016-05-27 00:56 | Discharge Summary ---
DATE OF DISCHARGE: 03/10/2016 FINAL DIAGNOSES: 1. Acute congestive heart failure exacerbation. 2. Systolic heart failure. 3. Diabetes with hyperglycemia. 4. Noncompliance. 5. Facial cellulitis. 6. Hypertension. 7. Microscopic hematuria. 8. Nicotine dependency. HOSPITAL COURSE: This is a 55-year-old male who was admitted for evaluation of shortness of breath and facial cellulitis, diagnosed with CHF exacerbation. The patient was started on diuresis. Cardiology and ID was consulted. The patient was given diuresis. Continuation was given vancomycin and Zosyn, which was subsequently tapered. Per ID recommendations, the patient was given insulin, basal-bolus coverage. Continue on Coreg and metformin. The patient's chest x-ray, vitals, and labs were closely monitored. Subsequently, the patient's cellulitis started improving. The patient's heart condition started improving. So, the patient was cleared for discharge home with outpatient followup with the Cardiology and primary doctor. The patient also received bronchodilators and oxygen support. Social service was also consulted for home situation, highly advised for smoking cessations. Medication compliance was highly advised. After clinical approved, ____ the patient home with home health followup. DISCHARGE CONDITION: Stable. DISCHARGE MEDICATIONS: Please see medication reconciliation list. DISCHARGE INSTRUCTION: The patient will be followed by primary MD, numerical control tool programmer as an outpatient. JOB# [id number]
== END 2016-03-10 15:33 | disposition home or self-care (01) | DRG 602 ==
LOC: ER 10:32 → MSI 13:22
PROVIDERS: ADMIT Family Medicine; ATTEND Family Medicine
DX: L03.211 Cellulitis of face (principal); I50.21 Acute systolic (congestive) heart failure; E11.65 Type 2 diabetes mellitus with hyperglycemia; E87.1 Hypo-osmolality and hyponatremia; J44.1 Chronic obstructive pulmonary disease with (acute) exacerbation; L02.01 Cutaneous abscess of face; I11.0 Hypertensive heart disease with heart failure; F17.210 Nicotine dependence, cigarettes, uncomplicated; R31.29 Other microscopic hematuria; L73.9 Follicular disorder, unspecified; Z91.14 Patient's other noncompliance with medication regimen; Z83.3 Family history of diabetes mellitus; Z79.4 Long term (current) use of insulin
CPT/HCPCS: 36415-UA; 71010-TC; 80048-TC; 80053-TC; 80061-TC; 80202-TC; 81001-TC; 82550-TC; 82947-TC; 82948-90; 83036-90; 83605; 83880-TC; 85007-TC; 85025-TC; 85027-TC; 85610-TC; 85730-TC; 87070-90; 87075-90; 87205-90; 90779; 93005; 94640; 94760; 96375; J1815; J1885; J1940; J2270; J2543; J3370; J7030; J7040; J7613; Z7502; Z7610

== ENCOUNTER 2016-05-25 21:08 | Inpatient (IN) | payer MEDICARE ==
--- NOTE | 2016-05-25 21:10 | ED Physician Chart ---
Chief Complaint/HPI - Patient Information Date Seen:: 05/25/16 Time Seen:: 21:09 Chief Complaint:: chest pain History of Present Illness:: 55-year-old male, homeless, history of diabetes, hypertension, CHF, complains of acute, constant, severe, 9 out of 10, sharp, nonradiating, worse with inspiration, left sided chest pain since early this morning. Denies nausea, vomiting, diaphoresis, headache, palpitations, acute vision changes, abdominal pain, dysuria. Reports that he has not been taking his medications. Allergies:: Allergies Allergy/AdvReac Type Severity Reaction Status Date / Time No Known Allergies Allergy Verified 03/06/16 11:16 Historian:: Patient Review:: Nurse's Note Reviewed Review of Systems - Review of Systems Other: Complete system review otherwise unremarkable except as noted in history of present illness. Past Medical History - Past Medical History Past Medical History: HTN, DM, CHF Family History: None Social History: Non Smoker, No Alcohol, No Drug Use, Homeless Surgical History: None Psychiatricy History: None Medication: Reviewed Family Medical History - Family Member Father History Unknown: Yes Ethnicity: Living Status: Hx Family Diabetes: Yes Physical Exam - Physical Examination Other:: INITIAL VITAL SIGNS: Reviewed by me GENERAL: Alert and interactive. No acute distress HEAD: Head is normocephalic and atraumatic EYES: EOMI. PERRL. No scleral icterus. No conjunctival injection ENT: Moist mucous membranes. NECK: Supple. No masses. Full range of motion RESPIRATORY: No tachypnea. Clear breath sounds bilaterally. No wheezing, rales, or rhonchi CV: Regular rate and rhythm. No murmurs, rubs, or gallops ABDOMEN: Soft, non-distended, non-tender. No guarding. No rebound. No masses. EXTREMITIES: No deformity. No cyanosis. No edema. SKIN: Warm and dry. No obvious rashes. NEUROLOGIC: Alert and oriented. Face is symmetric. Speech is normal. Moves all extremities equally. Motor and sensory distally intact. Labs/Radiology/EKG Results - Radiology Results Results: Single AP VIEW Portable Chest X-ray was interpreted independently and contemporaneously by David Herbert MD: No cardiomegaly Normal mediastinum Right lobe effusion No pneumothorax No soft tissue or bony abnormalities - EKG Interpretations Comments:: 12-lead EKG Interpretation by David Herbert MD: Normal Sinus Rhythm with ventricular rate of 97 beats per minute Normal axis Normal intervals No acute ST or T wave changes. No obvious STEMI ED Septic Shock - . Is Septic Shock (SBP<90, OR Lactate>4 mmol\L) present?: No Reassessment (Disposition) - Reassessment Reassessment:: Patient having CHF exacerbation. BNP greater than 4000. Gave IV Lasix. Gave IV analgesics. D-dimer elevated however CT PE study Performed at this time due to malfunction of the machine. We will have VQ scan in the morning. Discussed case with admitting physician. Patient admitted for further workup and treatment. Reassessment Condition:: Improved - Diagnosis Diagnosis:: Acute CHF exacerbation - Patient Disposition Discharge/Transfer:: Acute Care w/in this hosp Admitted to:: Telemetry Admitting Medical Physician:: Adithya Hernandes Time:: 23:28 Condition at Disposition:: Improved
[2016-05-25 21:52] LABS: % EOSINOPHILS 3.2 % (0.0-5.0); % LYMPHOCYTES 19.2 % (20.0-50.0); % NEUTROPHILS 72.6 % (40.0-80.0); HEMATOCRIT 43.3 % (39.0-49.0); HEMOGLOBIN 14.2 gm/dL (13.2-17.3); MEAN CELL VOLUME 91.8 fl (80-99); MEAN CORPUSCULAR HEMOGLOBIN 30.1 pg (26.0-30.0); MEAN CORPUSCULAR HGB CONC 32.8 pg (28.0-36.0); MEAN PLATELET VOLUME 9.1 fl; NEUTROPHILE ABSOLUTE 6.6 Th/cmm (1.8-8.0); PLATELET COUNT 322 Th/cmm (150-400); RED BLOOD COUNT 4.72 Mil/cmm (4.30-5.70); RED CELL DISTRIBUTION WIDTH 13.7 % (11.5-20.0); WHITE BLOOD COUNT 9.1 Th/cmm (4.8-10.8)
[2016-05-25 22:11] LABS: INR 0.94 (0.5-1.4); PROTHROMBIN TIME (TEST) 9.8 SECONDS (9.5-11.5)
[2016-05-25 22:26] LABS: ANION GAP 10.1 (7.0-16.0); BUN - UREA NITROGEN 22 mg/dL (7-25); CALCIUM SERUM 8.4 mg/dL (8.6-10.3); CARBON DIOXIDE 23.5 mEq/L (21.0-31.0); CHLORIDE 100 mEq/L (98-107); CREATININE - SERUM 1.1 mg/dL (0.7-1.3); GLUCOSE 425 mg/dL (70-105); POTASSIUM SERUM 4.6 mEq/L (3.5-5.1); SODIUM SERUM 129 mEq/L (136-145)
[2016-05-25 22:27] LABS: CHOLESTEROL 190 mg/dL (<200); TRIGLYCERIDES 142 mg/dL (<150)
[2016-05-25 22:31] LABS: TROP I 0.04 ng/mL (0.01-0.05)
[2016-05-25] MEDS ORDERED: Morphine Sulfate 2 mg/mL 1mL Syr IVP ONE (22:34)
[2016-05-25] MEDS ORDERED: IOHEXOL 350mg/mL 100mL Bottle IVP ONE ×2 (22:46→22:58)
[2016-05-26] MEDS ORDERED: Morphine Sulfate 2 mg/mL 1mL Syr ONE (00:56)
[2016-05-26 03:09] VITALS: BP 131/93
--- NOTE | 2016-05-26 06:49 | Admit Criteria Form ---
Admit Criteria Forms - Admit Criteria Diagnosis: HEART FAILURE Clinical Indications for Admission to Inpatient Care (Place 'X' for any and all applicable criteria): Admission is indicated by ANY ONE of the following(1)(2)(3)(4): [x ]I. Severe electrolyte abnormalities requiring inpatient care(9) [ ]II. Hemodynamic instability [ ]III. Anasarca [ ]IV. Acute cardiac ischemia causing or associated with failure (Also use Angina or Myocardial Infarction as appropriate) [ ]V. Cardiac arrhythmias of immediate concern [ ]. Precipitating cause for acute decompensation (eg, pneumonia, pulmonary embolism) requires inpatient care [ ]VII. Pulmonary edema that is very severe (eg, mechanical ventilation needed, imminent or likely, need for 100% oxygen to keep oxygen saturation above 90%) [ ]VIII. Inpatient admission required rather than observation care (Also use Heart Failure: Observation Care as appropriate) because of ANY ONE of the following: [ ]a) Pulmonary edema that is severe or worsening as indicated by ALL of the following: [ ]i) New need for oxygen therapy to keep oxygen saturation above 90% (or increased FiO2 need from baseline) [ ]ii) Has not improved sufficiently with emergency department or observation care IV diuretics or other heart failure treatments[C] [ ]b) Cognitive impairment that is severe or persistent [ ]c) Increased creatinine (new on laboratory test) with reduction of more than 50% in estimated glomerular filtration rate from baseline. [ ]d) Acute renal insufficiency (progressively (ongoing) rising creatinine (known from past laboratory test) with reduction of more than 25% in estimated glomerular filtration rate from baseline) [ ]e) Acute peripheral ischemia (eg, pulseless, cool, mottled, or cyanotic extremity) [ ]f) Acute renal failure [ ]g) Supplemental O2 or respiratory treatment for >24 hr that are performable only in acute inpatient setting [ ]h) Pulmonary artery catheter monitoring [ ]i) Other condition, treatment or monitoring requiring inpatient admission [ ]IX. Contraindications and/or Inappropriate clinical situations for Observational Care in patients with Heart Failure, when ANY ONE of the following is required: [ ]a) Patient with High risk of cardiac embolism (e.g, patients with previous cardiac embolism, LVEF < 40%, age >75 and patients with prosthetic valve) 18 [ ]b) Patient with Moderate risk including DM patient, CAD and patient aged 65-75 [ ]c) Patient with any change in cardiac biomarker especially troponin should be managed as high risk in an inpatient setting 19 [ ]d) Physician judgement irrespective of ECG and other diagnostic findings 20 [ ]e) Patients with hyponatremia have high risk for mortality and require more extensive care and length of stay 21 [ ]f) Need for large volume diuresis 21 [ ]g) Presence of renal insufficiency or hypotension limiting speed of diuresis 21 [ ]h) Acute cardiac Ischemia in the elderly 21 [ ]i) Patients with a 30 day risk of mortality based on a multidimensional prognostic index (MPI) [J,]21 [ ]X. General contraindications and/or Inappropriate clinical situations for Observational Care in patients with Heart Failure, when ANY ONE of the following is required: [ ]a) Prediction of prolongation of LOS based on ANY ONE of the following may be considered as a contraindication for observational care 2, 3, 4, 5, 6, 7, 8 , 9, 10, 11 [ ]i) Age > 65 yrs. [ ]ii) Patient arriving by ambulance [ ]iii) Patient with high acuity [ ]iv) Patient requiring vital sign monitoring [ ]v) Patient on IV medication [ ]b) Systolic blood pressures 180mmHg 3,12 [ ]c) Patient with altered mental status including delirium and other alteration of consciousness, (3) [ ]d) Patient whose discharge disposition will be to a senior living home or rehabilitation home should not be managed in Emergency Department Observation Unit. CMS rule requires 3 days hospital stay before such placement.3,13 [ ]e) Patient with failure to thrive due to broad array of etiologies 3,16,17 [ ]f) Inability to ambulate 3,14 Extended stay beyond goal length of stay may be needed for(1)(3)(21)(25): [ ]a) Cardiac ischemia, confirmed or suspected as precipitant [ ]b) Cardiogenic shock or refractory pulmonary edema [ ]c) Acute kidney injury or renal failure [ ]d) Respiratory failure (eg, need for noninvasive or invasive mechanical ventilation) (23) [ ]e) Concomitant pneumonia or significant electrolyte abnormality (eg, severe hyponatremia) [ ]f) Newly diagnosed (new onset) atrial fibrillation [ ]g) Stage IV chronic kidney disease (estimated glomerular filtration rate of less than 30 mL/min/1.73m2 (0.50 mL/sec/1.73m2), and not previously on chronic dialysis The original [facility] [employer] content created by [facility] has been revised. The portions of the content which have been revised are identified through the use of italic text or in bold, and [facility] has neither reviewed nor approved the modified material. All other unmodified content is copyright [facility] [employer]. Please see references footnoted in the original [facility] [employer] edition 2016 Admit Criteria Met?: Yes
[2016-05-26] MEDS ORDERED: Maalox 30 mL Cup PO PRN (08:15)
[2016-05-26] MEDS: Potassium Chloride Elixir 20 mEq /15 mL UDC PO SCH (08:58)
--- NOTE | 2016-05-26 09:08 | Diagnostic Imaging Report ---
CHEST X-RAY: AP view INDICATION: Chest pain COMPARISON: Chest x-ray 03/10/2016 FINDINGS: A small right effusion is seen. No focal consolidation identified. Heart size is borderline prominent. Mild increased interstitial lung markings are noted. The osseous structures are intact. IMPRESSION: Small right pleural effusion. Mild increased interstitial lung markings. Note that a marginal degree of congestion cannot be excluded. Borderline prominent heart.
--- NOTE | 2016-05-26 09:16 | Diagnostic Imaging Report ---
Bilateral lower extremity DVT study HISTORY: Elevated d-dimer, bilateral leg swelling COMPARISON: None Technique: Longitudinal and transverse sonographic images of the bilateral lower extremity veins were obtained with doppler analysis. FINDINGS: There is normal compressibility, augmentation and phasicity of the bilateral common femoral, superficial femoral, popliteal, and posterior tibial veins. No thrombus is visualized. IMPRESSION: No evidence of thrombus within the bilateral lower extremity veins.
[2016-05-26] MEDS: Ipratropium Neb 0.5 mg/2.5 mL UD HHN SCH ×3 (11:32→19:47)
[2016-05-26] MEDS: Albuterol Nebulizer 2.5mg/3mL HHN SCH ×3 (11:32→19:47)
[2016-05-26] MEDS: INSULIN ASPART, RECOMBINANT 100 UNITS/ML SUBQ SCH ×3 (12:37→21:33)
[2016-05-26] MEDS ORDERED: IOHEXOL 350 MG/ML IVP ONE (14:06)
[2016-05-26] MEDS ORDERED: IOHEXOL 350mg/mL 100mL Bottle IVP ONE (14:06)
--- NOTE | 2016-05-26 14:12 | Diagnostic Imaging Report ---
CT Chest pulmonary embolus study Indication: Elevated d-dimer, chest pain Comparison: Chest x-ray on 05/25/2016, Technique: Axial images were obtained from the base of the neck to the upper abdomen, following administration of IV contrast, PE protocol. Multiplanar reconstructions were made. total DLP: 142, CTDI10 FINDINGS: The aorta measures up to 3 cm. Mild atherosclerotic vascular disease is noted including coronary artery calcifications. Cardiomegaly is noted. There is no evidence of a pulmonary embolus. Trace pericardial fluid is noted. The lung lubin demonstrate faint infiltrate/nodule opacity involving the right upper lobe measuring 7 mm. Hypoventilatory changes of the lungs are noted with small right effusion or right basal consolidative changes. Trace left effusion is also noted. A few faint infiltrates of the left lung also noted. The upper abdomen demonstrates no acute abnormalities. No evidence of mediastinal lymphadenopathy. Mildly prominent bilateral axillary lymph nodes are noted. Degenerate changes of spine are noted. IMPRESSION: No evidence of a pulmonary embolus. Small right effusion or right basal consolidation changes. Additional few patchy infiltrates of the lungs are noted. Focal right upper lobe 7 mm nodular infiltrate is also noted which may be due to infectious or inflammatory or less likely neoplastic process. Short-term follow-up CT exam after resolution of patient's acute symptoms is recommended to ensure resolution patent. Additional trace left effusion. Mild cardiomegaly with coronary artery atherosclerotic vascular disease. Borderline prominent bilateral axillary lymph nodes.
[2016-05-26] MEDS: Insulin Detemir 100 units/mL 10mL Vial SUBQ SCH (14:54)
--- NOTE | 2016-05-26 18:50 | History & Physical ---
ADMIT DATE: 05/26/2016 CHIEF COMPLAINT: Shortness of breath. HISTORY OF PRESENT ILLNESS: This is a 55-year-old male with underlying history of systolic heart failure, diabetes, hypertension, chronic smoker who was evaluated in the Emergency Room last night for shortness of breath. ____ was admitted by Dr. Ha for CHF exacerbation and hyperglycemia. The patient this morning states he is feeling little better, still having shortness of breath. Denies any chest pain, no dizziness, no palpitations, no headache. No nausea, no vomiting, no fever, no chills. The patient states he has been on the street for the past few days, not been taking his medication for the past 2 weeks. PAST MEDICAL HISTORY: Hypertension, diabetes, systolic heart failure. PAST SURGICAL HISTORY: Not significant. FAMILY HISTORY: Noncontributory. SOCIAL HISTORY: He is homeless, chronic smoker, prior history of street drug use. Denies any current alcohol or street drug use. CURRENT MEDICATIONS: Currently on Coreg, heparin, NovoLog, metformin, Ambien. ALLERGIES: No known drug allergies. REVIEW OF SYSTEMS: Twelve-point system reviewed, appears negative. PHYSICAL EXAMINATION: VITAL SIGNS: Temperature 98.0, pulse 93, respiration is 20, blood pressure 140/99, oxygen 98% on room air. GENERAL APPEARANCE: The patient does not seem in acute distress. CARDIOVASCULAR: S1, S2 normal. LUNGS: Bilateral rales. ABDOMEN: Soft, nontender. NEUROLOGIC: The patient is awake. Moves all extremities. No focal deficits. EXTREMITIES: Negative for edema, no calf tenderness. AVAILABLE LABORATORY DATA: As follows: WBC is 9.1, hemoglobin 14.2. D-dimer 1420, sodium 129, potassium 4.6, BUN ____, creatinine 1.1. BNP 4010, LDL 129, calcium 8.4, blood sugar of 425. Chest x-ray, borderline cardiopulmonary, pulmonary vascular congestions noted. Lower extremity Doppler negative for any venous thrombosis. Awaiting CT chest angio results to rule out PE: Echocardiogram per tech report, EF is ____%. ASSESSMENT: 1. Acute congestive heart failure exacerbation, pertinent systolic heart failure. 2. Diabetes, hyperglycemia. 3. Hypertension. 4. ____ cigarette smoking. 5. Noncompliance. 6. Elevated D-dimer, rule out pulmonary emboli. 7. Homelessness. PLAN: The patient was admitted to tele unit. The patient was started on IV Lasix, beta-chelsea, Lisinopril. I added MAINOR inhibitors. Blood sugar will be monitored by Accu-Cheks and sliding scale will be given. We will do basal bolus insulin. Echocardiogram, Cardiology was consulted. I advised the patient to be medication compliance. Discussed with patient regarding his conditions, poor heart functions, ____. We will monitor labs and x-ray tomorrow morning. The patient will be given PT/OT. The patient will have physical therapy. The patient will get bronchodilator as needed. The patient will be on DVT prophylaxis. The patient's condition discussed with nursing staff. JOB# [id number]
--- NOTE | 2016-05-26 21:16 | Cardiology ---
05/26/2016 ECHOCARDIOGRAM REPORT Patient of Dr. Ha. M-MODE ECHOCARDIOGRAM: Mitral valve, anterior leaflet of the mitral valve shows decreased excursion, EF velocity. Posterior leaflet of the mitral valve shows decreased excursion. Left ventricular posterior wall shows normal thickness, decreased excursion. Interventricular septum showed normal thickness, decreased excursion. Ejection fraction 24%. Left atrium normal. Aortic root shows normal dimension, normal excursion of aortic leaflets. CONCLUSION: Cardiomyopathy, ejection fraction 24%. 2D ECHO: Long axis view shows enlarged left ventricular cavity with global hypokinesis. Mitral valve shows decreased excursion. Left atrium normal. Aortic root shows normal dimension, normal excursion of aortic leaflets. Short axis view of mitral valve normal. Short axis view of aortic valve normal. Apical four chamber view shows enlarged left ventricular cavity with decreased ejection fraction. Left atrium, normal. Right ventricular cavity, right atrium normal, no pericardial effusion. CONCLUSION: Cardiomyopathy, ejection fraction 24%. Doppler study shows mild mitral regurgitation, mild tricuspid regurgitation, mild pulmonary regurgitation, trace aortic regurgitation. Right ventricular systolic pressure 52 mmHg with moderate pulmonary hypertension. [facility]# [id number]
[2016-05-27 06:23] LABS: ANION GAP 9.5 (7.0-16.0); BUN - UREA NITROGEN 31 mg/dL (7-25); BUN/CREATININE RATIO 28.2; CALCIUM SERUM 9.2 mg/dL (8.6-10.3); CHLORIDE 98 mEq/L (98-107); CREATININE - SERUM 1.1 mg/dL (0.7-1.3); GLUCOSE 272 mg/dL (70-105); POTASSIUM SERUM 3.5 mEq/L (3.5-5.1); SODIUM SERUM 128 mEq/L (136-145)
[2016-05-27] MEDS: INSULIN ASPART, RECOMBINANT 100 UNITS/ML SUBQ SCH ×4 (06:59→21:32)
[2016-05-27] MEDS: Ipratropium Neb 0.5 mg/2.5 mL UD HHN SCH ×4 (07:16→20:15)
[2016-05-27] MEDS: Albuterol Nebulizer 2.5mg/3mL HHN SCH ×4 (07:16→20:14)
[2016-05-27] MEDS: Potassium Chloride Elixir 20 mEq /15 mL UDC PO SCH (08:48)
[2016-05-27] MEDS: Insulin Detemir 100 units/mL 10mL Vial SUBQ SCH (08:48)
[2016-05-27] MEDS: Hydrocodone/APAP 5mg/325mg Tab PO PRN ×3 (08:49→22:41)
--- NOTE | 2016-05-27 21:14 | Consultation ---
DATE OF CONSULTATION: 05/26/2016 The patient is a patient of Dr. Adithya Hernandes. HISTORY AND PHYSICAL: This is a 55-year-old male patient who had been complaining of shortness of breath. Following this, patient was brought to the Emergency Room with elevated BNP level. The patient has a history of cardiomyopathy. FAMILY HISTORY: Unremarkable. SOCIAL HISTORY: The patient has a history of nicotine dependence. PHYSICAL EXAMINATION: VITAL SIGNS: Blood pressure 120/80, pulse 88 and respirations 28. HEAD: Normocephalic. No lumps or bumps. EYES: Pupils equal, reactive to light. Fundi show AV nicking, sclerae white, conjunctivae pink. NECK: Carotid 2+. Normal upstroke. JVD 10 cm above the sternal angle. Thyroid not palpable. Lymph nodes not palpable. CHEST: Shows increased AP diameter. No kyphosis or scoliosis. LUNGS: Bilateral rales. Decreased breath sounds at both the bases. HEART: PMI sixth intercostal space with idwfeca-gr-nnjoktmeouipx line. S1, S2, S3, S4, systolic murmur, grade 2/6, lower left sternal border without radiation. ABDOMEN: Soft, hepatojugular reflux, positive bowel sounds active. RECTAL: Deferred. EXTREMITIES: Peripheral pulses 1+, pedal edema 2+. The patient during the hospital stay had elevated BNP level. Echocardiogram showed ejection fraction 24%, mild mitral regurgitation, tricuspid regurgitation and pulmonary regurgitation, moderate pulmonary hypertension with right ventricular systolic pressure 52 mmHg. CONCLUSION: Congestive heart failure, systolic dysfunction, hsgwa-ok-gpombta cardiomyopathy, methamphetamine use, diabetes mellitus type 2, moderate pulmonary hypertension, systemic hypertension and nicotine dependence. PLAN: We will get an echocardiogram ____ preload, afterload reduction. The patient advised to stop smoking as well as use of substance abuse with methamphetamine, fluid restriction and salt restriction. JOB# [id number]
--- NOTE | 2016-05-27 22:38 | General Progress Note ---
Subjective - Review of Systems Service Date: 05/27/16 Subjective: Patient feels better less sob denied chest pain c/o bilateral hand pain Objective - Results Result Diagrams: 05/25/16 21:28 05/27/16 05:22 Recent Labs: Laboratory Last Values WBC 9.1 Th/cmm (4.8-10.8) 05/25/16 21: RBC 4.72 Mil/cmm (4.30-5.70) 05/25/16 21:28 Hgb 14.2 gm/dL (13.2-17.3) 05/25/16 21:28 Hct 43.3 % (39.0-49.0) 05/25/16 21: MCV 91.8 fl (80-99) 05/25/16 21: MCH 30.1 pg (26.0-30.0) H 05/25/16 21: MCHC Differential 32.8 pg (28.0-36.0) 05/25/16 21: RDW 13.7 % (11.5-20.0) 05/25/16 21: Plt Count 322 Th/cmm (150-400) 05/25/16 21:28 MPV 9.1 fl 05/25/16 21:28 Neutrophils % 72.6 % (40.0-80.0) 05/25/16 21: Lymphocytes % 19.2 % (20.0-50.0) L 05/25/16 21: Monocytes % 5.0 % (2.0-10.0) 05/25/16 21: Eosinophils % 3.2 % (0.0-5.0) 05/25/16 21: Basophils % 0.0 % (0.0-2.0) 05/25/16 21:28 PT 9.8 SECONDS (9.5-11.5) 05/25/16 21:28 INR 0.94 (0.5-1.4) 05/25/16 21:28 D-Dimer 1420 ng/mL (100-400) H 05/25/16 21:28 Sodium 128 mEq/L (136-145) L 05/27/16 05:22 Potassium 3.5 mEq/L (3.5-5.1) 05/27/16 05:22 Chloride 98 mEq/L (98-107) 05/27/16 05:22 Carbon Dioxide 24.0 mEq/L (21.0-31.0) 05/27/16 05:22 Anion Gap 9.5 (7.0-16.0) 05/27/16 05:22 BUN 31 mg/dL (7-25) H 05/27/16 05:22 Creatinine 1.1 mg/dL (0.7-1.3) 05/27/16 05:22 Est GFR ( Amer) > 60.0 ml/min (>90) 05/27/16 05:22 Est GFR (Non-Af Amer) > 60.0 ml/min 05/27/16 05:22 BUN/Creatinine Ratio 28.2 05/27/16 05:22 Glucose 272 mg/dL (70-105) H 05/27/16 05:22 POC Glucose 237 MG/DL (70 - 105) H 05/27/16 21:26 Hemoglobin A1c 16.1 05/25/16 21:28 Calcium 9.2 mg/dL (8.6-10.3) 05/27/16 05:22 Creatine Kinase 140 U/L (30-223) 05/25/16 21:28 Troponin I 0.04 ng/mL (0.01-0.05) 05/25/16 21:28 B-Natriuretic Peptide 3800.0 pg/mL (5.0-100.0) H 05/27/16 05:22 Triglycerides 142 mg/dL (<150) 05/25/16 21:28 Cholesterol 190 mg/dL (<200) 05/25/16 21:28 LDL Cholesterol Direct 129 mg/dL (75-193) 05/25/16 21:28 HDL Cholesterol 55 mg/dL (23-92) 05/25/16 21:28 - Physical Exam Vitals and I&O: Vital Signs Temp 98.1 F 05/27/16 16:00 Pulse 78 05/27/16 20:10 Resp 18 05/27/16 20:10 BP 115/72 05/27/16 16:28 Pulse Ox 96 05/27/16 20:10 Intake & Output 05/27/16 05/27/16 05/28/16 06:59 18:59 06:59 Intake Total 900 Balance 900 Intake: Oral 900 Other: # Voids 5 Active Medications: Current Medications Acetaminophen/Hydrocodone Bitart ([place] 5mg/325mg) 1 tab PO Q6H PRN PRN Reason: Pain (Moderate) Stop: 07/26/16 08:24 Last Admin: 05/27/16 16:27 Dose: 1 tab Al Hydrox/Mg Hydrox/Simethicone (Maalox) 30 ml PO Q6HR PRN PRN Reason: GI DISTRESS Stop: 07/25/16 08:14 Albuterol Sulfate (Albuterol 2.5mg/3ml Neb Ud) 2.5 mg HHN QIDRT [facility] Stop: 07/25/16 10:59 Last Admin: 05/27/16 20:14 Dose: 2.5 mg Carvedilol (Coreg) 3.125 mg PO BID [facility] Stop: 07/25/16 08:59 Last Admin: 05/27/16 16:27 Dose: 3.125 mg Furosemide (Lasix) 40 mg IVP BID [facility]IO Stop: 07/26/16 16:59 Last Admin: 05/27/16 16:28 Dose: 40 mg Heparin Sodium (Porcine) (Heparin) 5,000 units SUBQ Q12HR [facility]IO Stop: 07/25/16 08:59 Last Admin: 05/27/16 21:27 Dose: 5,000 units Insulin Aspart (Novolog) 0 units SUBQ ACHS [facility]IO PRN Reason: Protocol Stop: 07/25/16 11:29 Last Admin: 05/27/16 21:32 Dose: 2 units Insulin Detemir (Levemir Insulin) 10 units SUBQ DAILY [facility] PRN Reason: Protocol Stop: 07/25/16 13:59 Last Admin: 05/27/16 08:48 Dose: 10 units Ipratropium [place] (Atrovent Neb 0.5mg/2.5ml) 0.5 mg HHN QIDRT [facility] Stop: 07/25/16 10:59 Last Admin: 05/27/16 20:15 Dose: 0.5 mg Lisinopril (Zestril) 5 mg PO DAILY [facility] Stop: 07/25/16 13:59 Last Admin: 05/27/16 08:50 Dose: 5 mg Metformin HCl (Glucophage) 1,000 mg PO BID [facility] Stop: 07/25/16 08:59 Last Admin: 04/20/17 16:28 Dose: 1,000 mg Mupirocin (Bactroban Oint) 1 appl NS BID [facility] Stop: 06/01/16 09:01 Last Admin: 05/27/16 22:19 Dose: Not Given Potassium Chloride (Potassium Chloride Elixir) 8 meq PO DAILY [facility] Stop: 07/25/16 08:59 Last Admin: 05/27/16 08:48 Dose: 8 meq Zolpidem Tartrate (Ambien) 10 mg PO HS PRN PRN Reason: Insomnia Stop: 07/25/16 08:13 Cardiovascular: Regular rate Lungs: Other (rales better) Abdomen: Soft Extremities: Other (bialteral hand superficial cuts noted) - Procedures Procedures: Procedures Procedure Code Date JUAN DIEGO BONE 20 SQ CM/< 03619 02/11/15 EXCISION OF RIGHT RADIUS, OPEN APPROACH [id number] 02/11/15 Assessment/Plan - Problem List Patient Problems: All Active Problems Arm pain (Acute) COUGH WITH CONGESTION AND FACIAL LESIONS (Acute) - Assessment Assessment: CHF exacerbation Systolic heart failure ( EF 20%) IDDM HTN Nicotine dependancy Bialteral hand superficial cuts Non compliance Homelessness - Plan Plan: Continue current treatment Neosporin Bactroban Plan of care discussed with pt and nursing staff Nutritional Asmnt/Malnutr-PDOC - Dietary Evaluation Malnutrition Findings (Please click <Entered> for more info): Nutritional Asmnt/Malnutrition Start: 05/26/16 13: 00 Text: Status: Complete Freq: Document 05/26/16 13:00 GSUN (Rec: 05/26/16 13:14 [email or web address]) Nutritional Asmnt/Malnutrition Patient General Information Nutritional Screening Consult Diagnosis CHF exacerbation Pertinent Medical Hx/Surgical Hx HTN, DM, CHF Subjective Information 55 year old male, homeless. Pt was pleasant. Pt stated UBW 180lb around 8mos ago ( questionable), lost to 140lb due to no money for food and sometimes would go days without food. RD checked bedscale 133.6lb, pt appears thin with lose skin. RD explained CCHO diet, provided brief DM edu, pt requires more edu. Pt reported good appetite and asked for more food. Current Diet Order/ Nutrition Support Low sodium, CCHO Pertinent Medications Maalox, Lasix, Novolog, Glucophage Pertinent Labs 05/25: glucose 425H, BNP >4000 Nutritional Hx/Data Height 1.7 m Height (Calculated Centimeters) 170.2 Current Weight (lbs) 60.6 kg Weight (Calculated Kilograms) 60.6 Weight (Calculated Grams) 06626.9 [place] Body Weight 148lb/67.3kg Recent Weight Change Yes Weight Status Approriate GI Symptoms Skin Integrity/Comment: Mohan 20. Skin intact, some wounds/scab Estimated Nutritional Goals Calories/Kcals/Kg IBW 148lb/67.3kg Kcals Calculated 1683-2019kcal (25-30kcal/kg) Protein g/kg: IBW Protein Calculated 54-67g (0.8-1g/kg) Fluid: ml per MD (dx. CHF) Nutritional Problem 1. Problem Problem Altered nutrition related laboratory values related to Etiology DM aeb Signs/Symptoms: ER notes, glucose 425 on adm Intervention/Recommendation Comments 1. Recommend [id number] low sodium diet. 2. Pt may request for extra portions of non-carb food items due to pt report good appetite and possible recent weight lost within the year. 3. RD provided brief edu on CCHO diet and improtance of not skipping meals. Pt requires follow up edu. Expected Outcomes/Goals Expected Outcomes/Goals 1. PO intake to meet at least 75% of estimated nutritional needs.
[2016-05-28 05:56] LABS: ANION GAP 7.9 (7.0-16.0); BUN - UREA NITROGEN 39 mg/dL (7-25); CARBON DIOXIDE 26.3 mEq/L (21.0-31.0); CHLORIDE 99 mEq/L (98-107); CREATININE - SERUM 1.3 mg/dL (0.7-1.3); GLUCOSE 263 mg/dL (70-105); POTASSIUM SERUM 4.2 mEq/L (3.5-5.1); SODIUM SERUM 129 mEq/L (136-145)
[2016-05-28] MEDS: INSULIN ASPART, RECOMBINANT 100 UNITS/ML SUBQ SCH (06:34)
[2016-05-28] MEDS: Ipratropium Neb 0.5 mg/2.5 mL UD HHN SCH (06:59)
[2016-05-28] MEDS: Albuterol Nebulizer 2.5mg/3mL HHN SCH (06:59)
[2016-05-28] MEDS: Insulin Detemir 100 units/mL 10mL Vial SUBQ SCH (08:51)
[2016-05-28] MEDS ORDERED: Triple Antibiotic 0.94 gm Pkt TP SCH (09:00)
[2016-05-28] MEDS: Potassium Chloride Elixir 20 mEq /15 mL UDC PO SCH (09:12)
--- NOTE | 2016-05-28 09:40 | General Progress Note ---
Subjective - Review of Systems Service Date: 05/28/16 Subjective: Patient feels better denied chest pain or shortness of breath Objective - Results Result Diagrams: 05/25/16 21:05/28/16 05:18 Recent Labs: Laboratory Last Values WBC 9.1 Th/cmm (4.8-10.8) 05/25/16 21: RBC 4.72 Mil/cmm (4.30-5.70) 05/25/16 21: Hgb 14.2 gm/dL (13.2-17.3) 05/25/16 21: Hct 43.3 % (39.0-49.0) 05/25/16 21: MCV 91.8 fl (80-99) 05/25/16 21: MCH 30.1 pg (26.0-30.0) H 05/25/16: MCHC Differential 32.8 pg (28.0-36.0) 05/25/16: RDW 13.7 % (11.5-20.0) 05/25/16: Plt Count 322 Th/cmm (150-400) 05/25/16 21: MPV 9.1 fl 05/25/16 21: Neutrophils % 72.6 % (40.0-80.0) 05/25/16: Lymphocytes % 19.2 % (20.0-50.0) L 05/25/16: Monocytes % 5.0 % (2.0-10.0) 05/25/16: Eosinophils % 3.2 % (0.0-5.0) 05/25/16: Basophils % 0.0 % (0.0-2.0) 05/25/16: PT 9.8 SECONDS (9.5-11.5) 05/25/16: INR 0.94 (0.5-1.4) 05/25/16: D-Dimer 1420 ng/mL (100-400) H 05/25/16 21: Sodium 129 mEq/L (136-145) L 05/28/16 05:18 Potassium 4.2 mEq/L (3.5-5.1) 05/28/16 05:18 Chloride 99 mEq/L (98-107) 05/28/16 05:18 Carbon Dioxide 26.3 mEq/L (21.0-31.0) 05/28/16 05:18 Anion Gap 7.9 (7.0-16.0) 05/28/16 05:18 BUN 39 mg/dL (7-25) H 05/28/16 05:18 Creatinine 1.3 mg/dL (0.7-1.3) 05/28/16 05:18 Est GFR ( Amer) > 60.0 ml/min (>90) 05/28/16 05:18 Est GFR (Non-Af Amer) > 60.0 ml/min 05/28/16 05:18 BUN/Creatinine Ratio 30.0 05/28/16 05:18 Glucose 263 mg/dL (70-105) H 05/28/16 05:18 POC Glucose 224 MG/DL (70 - 105) H 05/28/16 08:45 Hemoglobin A1c 16.1 05/25/16 21:28 Calcium 9.0 mg/dL (8.6-10.3) 05/28/16 05:18 Creatine Kinase 140 U/L (30-223) 05/25/16 21:28 Troponin I 0.04 ng/mL (0.01-0.05) 05/25/16 21:28 B-Natriuretic Peptide 1710.0 pg/mL (5.0-100.0) H 05/28/16 05:18 Triglycerides 142 mg/dL (<150) 05/25/16 21:28 Cholesterol 190 mg/dL (<200) 05/25/16 21:28 LDL Cholesterol Direct 129 mg/dL (75-193) 05/25/16 21:28 HDL Cholesterol 55 mg/dL (23-92) 05/25/16 21:28 - Physical Exam Vitals and I&O: Vital Signs Temp 97.7 F 05/28/16 04:00 Pulse 106 05/28/16 08:48 Resp 18 05/28/16 07:00 BP 111/75 05/28/16 09:11 Pulse Ox 97 05/28/16 07:00 Intake & Output 05/27/16 05/28/16 05/28/16 18:59 06:59 18:59 Intake Total 900 Balance 900 Intake: Oral 900 Other: # Voids 5 Active Medications: Current Medications Acetaminophen/Hydrocodone Bitart ([place] 5mg/325mg) 1 tab PO Q6H PRN PRN Reason: Pain (Moderate) Stop: 07/26/16 08:24 Last Admin: 05/27/16 22:41 Dose: 1 tab Al Hydrox/Mg Hydrox/Simethicone (Maalox) 30 ml PO Q6HR PRN PRN Reason: GI DISTRESS Stop: 07/25/16 08:14 Albuterol Sulfate (Albuterol 2.5mg/3ml Neb Ud) 2.5 mg HHN QIDRT [facility] Stop: 07/25/16 10:59 Last Admin: 05/28/16 06:59 Dose: 2.5 mg Carvedilol (Coreg) 3.125 mg PO BID [facility] Stop: 07/25/16 08:59 Last Admin: 05/28/16 08:44 Dose: 3.125 mg Furosemide (Lasix) 40 mg IVP BID [facility] Stop: 07/26/16 16:59 Last Admin: 05/28/16 09:11 Dose: 40 mg Heparin Sodium (Porcine) (Heparin) 5,000 units SUBQ Q12HR [facility] Stop: 07/25/16 08:59 Last Admin: 05/28/16 08:49 Dose: 5,000 units Insulin Aspart (Novolog) 0 units SUBQ ACHS [facility] PRN Reason: Protocol Stop: 07/25/16 11:29 Last Admin: 05/28/16 06:34 Dose: 4 units Insulin Detemir (Levemir Insulin) 10 units SUBQ DAILY [facility] PRN Reason: Protocol Stop: 07/25/16 13:59 Last Admin: 05/28/16 08:51 Dose: 10 units Ipratropium [place] (Atrovent Neb 0.5mg/2.5ml) 0.5 mg HHN QIDRT [facility] Stop: 07/25/16 10:59 Last Admin: 05/28/16 06:59 Dose: 0.5 mg Lisinopril (Zestril) 5 mg PO DAILY [facility] Stop: 07/25/16 13:59 Last Admin: 05/28/16 08:48 Dose: 5 mg Metformin HCl (Glucophage) 1,000 mg PO BID [facility] Stop: 07/25/16 08:59 Last Admin: 05/28/16 08:44 Dose: 1,000 mg Mupirocin (Bactroban Oint) 1 appl NS BID [facility] Stop: 06/01/16 09:01 Last Admin: 05/27/16 22:19 Dose: Not Given Neomycin/Polymyxin/Bacitracin (Triple Antibiotic Pkt) 1 pkt TP BID [facility] Stop: 07/27/16 08:59 Last Admin: 05/28/16 08:50 Dose: 1 pkt Potassium Chloride (Potassium Chloride Elixir) 8 meq PO DAILY [facility] Stop: 07/25/16 08:59 Last Admin: 05/28/16 09:12 Dose: 8 meq Zolpidem Tartrate (Ambien) 10 mg PO HS PRN PRN Reason: Insomnia Stop: 07/25/16 08:13 Cardiovascular: Normal S1, Normal S2 Lungs: Clear to auscultation - Procedures Procedures: Procedures Procedure Code Date JUAN DIEGO BONE 20 SQ CM/< 41039 02/11/15 EXCISION OF RIGHT RADIUS, OPEN APPROACH [id number] 02/11/15 Assessment/Plan - Problem List Patient Problems: All Active Problems Arm pain (Acute) COUGH WITH CONGESTION AND FACIAL LESIONS (Acute) - Assessment Assessment: CHF exacerbation Systolic heart failure ( EF 20%) IDDM HTN Nicotine dependancy Bialteral hand superficial cuts Non compliance Homelessness - Plan Plan: DC home today with home health follow up Medication compliance highly advised Follow up with PCP in one week Follow up with Cardiology in 2-3 weeks DC plan discussed with pt and nursing staff Nutritional Asmnt/Malnutr-PDOC - Dietary Evaluation Malnutrition Findings (Please click <Entered> for more info): Nutritional Asmnt/Malnutrition Start: 05/26/16 13: 00 Text: Status: Complete Freq: Document 05/26/16 13:00 GSUN (Rec: 05/26/16 13:14 GSUN [email or web address]) Nutritional Asmnt/Malnutrition Patient General Information Nutritional Screening Consult Diagnosis CHF exacerbation Pertinent Medical Hx/Surgical Hx HTN, DM, CHF Subjective Information 55 year old male, homeless. Pt was pleasant. Pt stated UBW 180lb around 8mos ago ( questionable), lost to 140lb due to no money for food and sometimes would go days without food. RD checked bedscale 133.6lb, pt appears thin with lose skin. RD explained CCHO diet, provided brief DM edu, pt requires more edu. Pt reported good appetite and asked for more food. Current Diet Order/ Nutrition Support Low sodium, CCHO Pertinent Medications Maalox, Lasix, Novolog, Glucophage Pertinent Labs 05/25: glucose 425H, BNP >4000 Nutritional Hx/Data Height 1.7 m Height (Calculated Centimeters) 170.2 Current Weight (lbs) 60.6 kg Weight (Calculated Kilograms) 60.6 Weight (Calculated Grams) 62540.9 Vantage Body Weight 148lb/67.3kg Recent Weight Change Yes Weight Status Approriate GI Symptoms Skin Integrity/Comment: Mohan 20. Skin intact, some wounds/scab Estimated Nutritional Goals Calories/Kcals/Kg IBW 148lb/67.3kg Kcals Calculated 1683-2019kcal (25-30kcal/kg) Protein g/kg: IBW Protein Calculated 54-67g (0.8-1g/kg) Fluid: ml per MD (dx. CHF) Nutritional Problem 1. Problem Problem Altered nutrition related laboratory values related to Etiology DM aeb Signs/Symptoms: ER notes, glucose 425 on adm Intervention/Recommendation Comments 1. Recommend [id number] low sodium diet. 2. Pt may request for extra portions of non-carb food items due to pt report good appetite and possible recent weight lost within the year. 3. RD provided [facility] and improtance of not skipping meals. Pt requires follow up edu. Expected Outcomes/Goals Expected Outcomes/Goals 1. PO intake to meet at least 75% of estimated nutritional needs.
[2016-05-28] MEDS ORDERED: Insulin Detemir 100 units/mL 10mL Vial SUBQ ONE (10:21)
== END 2016-05-28 12:00 | disposition home or self-care (01) | DRG 292 ==
LOC: ER 21:08 → TELE 05-26 01:30
PROVIDERS: ADMIT Family Medicine; ATTEND Family Medicine
DX: I11.0 Hypertensive heart disease with heart failure (principal); E87.1 Hypo-osmolality and hyponatremia; E11.65 Type 2 diabetes mellitus with hyperglycemia; I42.9 Cardiomyopathy, unspecified; I27.2 Other secondary pulmonary hypertension; I08.1 Rheumatic disorders of both mitral and tricuspid valves; I50.23 Acute on chronic systolic (congestive) heart failure; F17.210 Nicotine dependence, cigarettes, uncomplicated; S61.411A Laceration without foreign body of right hand, initial encounter; S61.412A Laceration without foreign body of left hand, initial encounter; F15.90 Other stimulant use, unspecified, uncomplicated; Z79.4 Long term (current) use of insulin; Z91.14 Patient's other noncompliance with medication regimen; Z59.0 Homelessness
CPT/HCPCS: 36415-UA; 71010-TC; 71275-TC; 80048-TC; 80061-TC; 82550-TC; 82948-90; 83036-90; 83880-TC; 84484-TC; 85025-TC; 85379-TC; 85610-TC; 90779; 93005; 93970-TC-50; 94640; 94760; 96374; 96375; J1644; J1815; J1940; J2270; J7613; Q9967; X3904; Z7610

== ENCOUNTER 2016-06-16 09:33 | Emergency (ER) | payer MEDICARE ==
[2016-06-16 10:23] VITALS: BP 136/98
--- NOTE | 2016-06-16 10:31 | ED Physician Chart ---
Chief Complaint/HPI - Patient Information Date Seen:: 06/16/16 Time Seen:: 10:25 Chief Complaint:: penis swelling History of Present Illness:: x 2-3 days pt notes his penis is swollen and painful. he cant retract foreskin. no fever, no abd p, no cp. no cough, no sob. no back pain. pt had a hx of paraphimosis 1.5 months ago and had to have it reduced by urologist. after he was given a cream but lost it and doent know what it was but no po meds were given. he has a hx of psoriasis since childhood and his hands are cracked and dry which is chronic. his skin is very dry and he notes he usually uses lotion but these were lost sev days ago. he has hx of drug abuse and concerns about compliance in general Allergies:: Allergies Allergy/AdvReac Type Severity Reaction Status Date / Time No Known Allergies Allergy Verified 05/25/16 21:32 Vitals:: Vital Signs - 8 hr 06/16/16 06/16/16 09:55 09:56 Temp 97.4 F HR 100 RR 16 BP 136/98 136/98 O2 Sat % 100 Historian:: Patient Review of Systems - Review of Systems General/Constitutional: No fever, No chills, No weight loss, No weakness, No diaphoresis, No edema, No loss of appetite Skin: Skin lesions, Rash, No bruising Head: No headache, No light-headedness Eyes: No loss of vision, No pain, No diplopia ENT: No earache, No nasal drainage, No sore throat, No tinnitus Neck: No neck pain, No swelling, No thyromegaly, No stiffness, No mass noted Cardio Vascular: No chest pain, No palpitations, No PND, No orthopnea, No edema Pulmonary: No SOB, No cough, No sputum, No wheezing GI: No nausea, No vomiting, No diarrhea, No pain, No melena, No hematochezia, No constipation, No hematemesis G/U: No dysuria, No frequency, No hematuria Musculoskeletal: No bone or joint pain, No back pain, No muscle pain Endocrine: No polyuria, No polydipsia Psychiatric: No prior psych history, No depression, No anxiety, No suicidal ideation Hematopoietic: No bruising, No lymphadenopathy Allergic/Immuno: No urticaria, No angioedema Neurological: No syncope, No focal symptoms, No weakness, No paresthesia, No headache, No seizure, No dizziness, No confusion, No vertigo Past Medical History - Past Medical History Past Medical History: DM, CHF, Other (psoriasis) Social History: Illicit Drug Use Medication: Reviewed Family Medical History - Family Member Father History Unknown: Yes Ethnicity: Living Status: Hx Family Cancer: No Hx Family Coronary Artery Disease: No Hx Family Congestive Heart Failure: No Hx Family Hypertension: No Hx Family Stroke: No Hx Family Diabetes: Yes Hx Family Seizures: No Hx Family Dementia: No Hx Family AIDS: No Hx Family HIV: No Hx Family COPD: No Hx Family Hepatitis: No Hx Family Psychiatric Problems: No Hx Family Tuberculosis: No Physical Exam - Physical Examination General/Constitutional: Awake, Well-developed, well-nourished, Alert, No distress, GCS 15, Non-toxic appearing, Ambulatory Head: Atraumatic Eyes: Lids, conjuctiva normal, PERRL, EOMI Skin: Nl inspection, No ecchymosis, Well hydrated, No lymphadenopathy Other Skin comments:: b hands are w frequent cracked and chronic appearing induration. ok rom,. no cellulitis. skin is dry and chalky in general all over. penis is edematous w nonretractable foreskin. scrotum is warm and edematous and somewhat reddened. doesnt seem particularly tender. numerous/copious tattoos. ENMT: External ears, nose nl, Nasal exam nl, Lips, teeth, gums nl Neck: Nontender, Full ROM w/o pain, No JVD, No nuchal rigidity, No bruit, No mass, No stridor Respiratory: Nl effort/Exclusion, Clear to Auscultation, No Wheeze/Rhonchi/Rales Cardio Vascular: RRR, No murmur, gallop, rubs, NL S1 S2 GI: No tenderness/rebounding/guarding, No organomegaly, No hernia, Normal BS's, Nondistended, No mass/bruits, No McBurney tenderness : No CVA tenderness Other comments:: edema of penis and scrotum w scrotum red/warm Extremities: No tenderness or effusion, Full ROM, normal strength in all extremities, No edema, Normal digits & nails Neuro/Psych: Alert/oriented, DTR's symmetric, Normal sensory exam, Normal motor strength, Judgement/insight normal, Mood normal, Normal gait, No focal deficits Misc: normal gait, Normal back, No paraspinal tenderness Labs/Radiology/EKG Results - Lab Results Results: Laboratory Tests 06/16/16 06/16/16 06/16/16 10:35 10:35 10:35 WBC 7.1 D RBC 4.85 Hgb 14.1 Hct 43.9 MCV 90.4 MCH 29.1 MCHC Differential 32.1 RDW 14.4 Plt Count 331 MPV 9.2 Neutrophils % 73.9 Lymphocytes % 16.1 L Monocytes % 3.5 Eosinophils % 6.5 H Basophils % 0.0 Sodium 134 L Potassium 4.2 Chloride 101 Carbon Dioxide 23.8 Anion Gap 13.4 BUN 22 Creatinine 1.3 Est GFR ( Amer) > 60.0 Est GFR (Non-Af Amer) > 60.0 BUN/Creatinine Ratio 16.9 Glucose 496 H* Whole Bld Lactic Acid 2.92 H* Calcium 9.5 Total Bilirubin 0.4 AST 59 H ALT 30 Alkaline Phosphatase 191 H Troponin I B-Natriuretic Peptide Total Protein 6.6 Albumin 2.7 L Globulin 3.9 Albumin/Globulin Ratio 0.7 L 06/16/16 10:35 WBC RBC Hgb Hct MCV MCH MCHC Differential RDW Plt Count MPV Neutrophils % Lymphocytes % Monocytes % Eosinophils % Basophils % Sodium Potassium Chloride Carbon Dioxide Anion Gap BUN Creatinine Est GFR ( Amer) Est GFR (Non-Af Amer) BUN/Creatinine Ratio Glucose Whole Bld Lactic Acid Calcium Total Bilirubin AST ALT Alkaline Phosphatase Troponin I 0.11 H* D B-Natriuretic Peptide 2830.0 H Total Protein Albumin Globulin Albumin/Globulin Ratio - Radiology Results Results: us- bilat hydroceles. no torsion. pos evidence for epididymitis on rt - EKG Interpretations EKG Time:: 11:50 Rate & Rhythm: nsr 103 [place]: 57 Intervals: borderline long qtc (498) Comments:: overall no obvious major acute process. minimal st elev in v3 nondiagnostic. [facility] ED Septic Shock - . Is Septic Shock (SBP<90, OR Lactate>4 mmol\L) present?: No - <6hrs of presentation: Vital Signs: Vital Signs - 8 hr 06/16/16 06/16/16 09:55 09:56 Temp 97.4 F HR 100 RR 16 BP 136/98 136/98 O2 Sat % 100 Reassessment (Disposition) - Reassessment Reassessment:: (12:17p) case dw dr maguire ...he is willing to admit but since we have no urologist here thinks admit to [place] may be better...he could still be admit dr [place] there. (1;43p) plan is send pt to [place] ... pt doing ok. vss Reassessment Condition:: Improved - Diagnosis Diagnosis:: 1 epididymitis 2 penile scrotal edema/cellulitis w paraphimosis 3 elevated troponin 4 poorly ctrld DM - Patient Disposition Discharge/Transfer:: Acute Care (other hosp) ([facility]) Condition at Disposition:: Improved
[2016-06-16 10:41] LABS: % EOSINOPHILS 6.5 % (0.0-5.0); % LYMPHOCYTES 16.1 % (20.0-50.0); % MONOCYTES 3.5 % (2.0-10.0); % NEUTROPHILS 73.9 % (40.0-80.0); HEMATOCRIT 43.9 % (39.0-49.0); HEMOGLOBIN 14.1 gm/dL (13.2-17.3); MEAN CELL VOLUME 90.4 fl (80-99); MEAN CORPUSCULAR HEMOGLOBIN 29.1 pg (26.0-30.0); MEAN CORPUSCULAR HGB CONC 32.1 pg (28.0-36.0); MEAN PLATELET VOLUME 9.2 fl; NEUTROPHILE ABSOLUTE 5.3 Th/cmm (1.8-8.0); PLATELET COUNT 331 Th/cmm (150-400); RED BLOOD COUNT 4.85 Mil/cmm (4.30-5.70); RED CELL DISTRIBUTION WIDTH 14.4 % (11.5-20.0); WHITE BLOOD COUNT 7.1 Th/cmm (4.8-10.8)
[2016-06-16 10:59] LABS: ALB/GLOB RATIO 0.7 (1.0-1.8); ALKALINE PHOSPHATASE 191 U/L (34-104); ANION GAP 13.4 (7.0-16.0); BILIRUBIN,TOTAL 0.4 mg/dL (0.3-1.0); BUN - UREA NITROGEN 22 mg/dL (7-25); BUN/CREATININE RATIO 16.9; CALCIUM SERUM 9.5 mg/dL (8.6-10.3); CARBON DIOXIDE 23.8 mEq/L (21.0-31.0); CHLORIDE 101 mEq/L (98-107); CREATININE - SERUM 1.3 mg/dL (0.7-1.3); POTASSIUM SERUM 4.2 mEq/L (3.5-5.1); SGOT 59 U/L (13-39); SGPT/ALT 30 U/L (7-52); SODIUM SERUM 134 mEq/L (136-145)
[2016-06-16] MEDS: ceFAZolin 1 GM in Sodium Chloride 0.9% 50 ML IV ONE (11:00)
[2016-06-16 11:07] LABS: GLUCOSE 496 mg/dL (70-105)
[2016-06-16 11:10] LABS: TROP I 0.11 ng/mL (0.01-0.05)
[2016-06-16] MEDS ORDERED: INSULIN ASPART, RECOMBINANT 100 UNITS/ML SUBQ ONE (12:02)
[2016-06-16] MEDS: INSULIN ASPART, RECOMBINANT 100 UNITS/ML SUBQ ONE (12:06)
--- NOTE | 2016-06-16 12:16 | Diagnostic Imaging Report ---
Ultrasound scrotum HISTORY: Edema, pain COMPARISON: None Technique/procedure: Sonography of the scrotum and contents was performed in multiple planes. FINDINGS: The right testicle measures 3.0 x 2.2 x 2.9 cm demonstrates normal echogenicity with no evidence of focal lesions. The right epididymal head measures 0.9 cm. A moderate-sized right hydrocele is noted. The left testicle measures 3.1 x 2.2 x 2.8 cm demonstrates normal echogenicity with no evidence of focal lesions. The left epididymal head measures 1.2 cm. Small lesion is seen along the left epididymal head measuring 4 mm. There is a moderate size left hydrocele. There is area of fluid seen lateral to the left testicle measuring 2.4 x 1.7 cm. Vascular flow to both testicles noted. Scrotal wall edema is noted. IMPRESSION: Bilateral moderate sized hydrocele and scrotal wall edema. There is indeterminant area of fluid measuring 2.4 x 1.7 cm lateral to the left testicle which may be related to patient's left hydrocele. Clinical correlation and follow-up is recommended. Small lesion of the left epididymal head with internal echoes. Findings may represent a small epididymal head cyst with debris. Vascular flow to both testicles noted.
== END 2016-06-16 15:00 | disposition short-term general hospital (02) ==
LOC: ER 09:33
DX: N45.1 Epididymitis (principal); R79.89 Other specified abnormal findings of blood chemistry; E11.9 Type 2 diabetes mellitus without complications; I50.9 Heart failure, unspecified
CPT/HCPCS: 99285; 96365; 96372; 96375; 93005; 76870; 84484; 83880; 36415; 36416; 82948; 83605 ×2; 85025; 83036; 80053; 87040 ×2; J0690; J2930; 87491-90; J1200; J1815; Z7610

== ENCOUNTER 2016-07-30 15:25 | Inpatient (IN) | payer MEDICARE ==
[2016-07-30 16:24] LABS: % BASOPHILS 0.1 % (0.0-2.0); % EOSINOPHILS 1.7 % (0.0-5.0); % LYMPHOCYTES 10.3 % (20.0-50.0); % MONOCYTES 3.5 % (2.0-10.0); % NEUTROPHILS 84.4 % (40.0-80.0); HEMATOCRIT 45.1 % (39.0-49.0); HEMOGLOBIN 14.6 gm/dL (13.2-17.3); INR 1.02 (0.5-1.4); MEAN CELL VOLUME 92.2 fl (80-99); MEAN CORPUSCULAR HEMOGLOBIN 29.8 pg (26.0-30.0); MEAN CORPUSCULAR HGB CONC 32.3 pg (28.0-36.0); MEAN PLATELET VOLUME 9.1 fl; NEUTROPHILE ABSOLUTE 9.9 Th/cmm (1.8-8.0); PLATELET COUNT 298 Th/cmm (150-400); PROTHROMBIN TIME (TEST) 10.6 SECONDS (9.5-11.5); RED BLOOD COUNT 4.89 Mil/cmm (4.30-5.70); RED CELL DISTRIBUTION WIDTH 15.1 % (11.5-20.0)
[2016-07-30 16:25] LABS: WHITE BLOOD COUNT 11.7 Th/cmm (4.8-10.8)
[2016-07-30 16:34] LABS: ALB/GLOB RATIO 0.6 (1.0-1.8); ALKALINE PHOSPHATASE 255 U/L (34-104); ANION GAP 13.2 (7.0-16.0); BILIRUBIN,TOTAL 0.6 mg/dL (0.3-1.0); BUN - UREA NITROGEN 16 mg/dL (7-25); BUN/CREATININE RATIO 17.8; CALCIUM SERUM 8.7 mg/dL (8.6-10.3); CARBON DIOXIDE 20.5 mEq/L (21.0-31.0); CHLORIDE 95 mEq/L (98-107); CREATININE - SERUM 0.9 mg/dL (0.7-1.3); POTASSIUM SERUM 3.7 mEq/L (3.5-5.1); SGOT 33 U/L (13-39); SGPT/ALT 26 U/L (7-52); SODIUM SERUM 125 mEq/L (136-145)
[2016-07-30 16:35] LABS: CHOLESTEROL 195 mg/dL (<200); TRIGLYCERIDES 191 mg/dL (<150)
[2016-07-30 16:36] LABS: GLUCOSE 525 mg/dL (70-105)
[2016-07-30] MEDS ORDERED: INSULIN HUMAN REGULAR 100 UNITS/ML UNIT SUBQ ONE (17:07)
[2016-07-30] MEDS ORDERED: Sodium Chloride 0.9% 1,000 ML IV ONE (17:08)
[2016-07-30 17:13] LABS: TSH 3.35 uIU/ml (0.34-5.60)
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
[2016-07-30] MEDS ORDERED: INSULIN HUMAN REGULAR 100 UNITS/ML UNIT ONE (17:20)
[2016-07-30 18:10] LABS: URINE BILIRUBIN NEGATIVE (NEGATIVE); URINE BLOOD MODERATE (NEGATIVE); URINE COLOR YELLOW; URINE GLUCOSE (UA) 500 mg/dL (NEGATIVE); URINE KETONE NEGATIVE (NEGATIVE); URINE PROTEIN >300 mg/dL (NEGATIVE)
[2016-07-30 18:11] LABS: URINE BACTERIA FEW /hpf (NONE SEEN); URINE EPITHELIAL CELLS FEW /lpf (FEW); URINE WBC 0-2 /hpf (0-5)
[2016-07-30] MEDS ORDERED: Albuterol Nebulizer 2.5mg/3mL HHN PRN (19:53)
[2016-07-30 20:35] LABS: AMPHETAMINE URINE NEGATIVE (NEGATIVE); BARBITURATES URINE NEGATIVE (NEGATIVE); METHADONE URINE NEGATIVE (NEGATIVE)
[2016-07-30] MEDS: Insulin Detemir 100 units/mL 10mL Vial SUBQ SCH (22:48)
[2016-07-30] MEDS: INSULIN ASPART SLIDING SCALE 100 UNITS/ML UNIT SUBQ SCH (22:49)
--- NOTE | 2016-07-30 23:01 | Admit Criteria Form ---
Admit Criteria Forms - Admit Criteria Diagnosis: HEART FAILURE Clinical Indications for Admission to Inpatient Care (Place 'X' for any and all applicable criteria): Admission is indicated by 1 or more of the following(1)(2)(3)(4)(5)(6)(7) [ ]I. Hemodynamic instability(9) [ ]II. Severe electrolyte abnormalities requiring inpatient care [ ]III. Cardiac arrhythmias of immediate concern [ ]IV. Precipitating cause for acute decompensation (eg, pneumonia, pulmonary embolism) requires inpatient care [ ]V. Acute cardiac ischemia causing or associated with failure (Also use Angina or Myocardial Infarction as appropriate) [ ]. Pulmonary edema that is very severe (eg, mechanical ventilation needed, imminent or likely, need for 100% oxygen to keep oxygen saturation above 90%) [ ]VII. Massive skin edema (anasarca) with complications (eg tissue breakdown with infection, inability to void due to edema)[A] (15) [ X]VIIl. Inpatient admission required [B]rather than observation care (See Heart Failure: Observation Care as appropriate) because of 1 or more of the following(16)(17): [ ]a) Pulmonary edema that is severe or worsening as indicated by ALL of the following: [ ]1) New need for oxygen therapy to keep oxygen saturation above 90% (or increased FiO2 need from baseline) [ ]2) Has not improved sufficiently with emergency department or observation care IV diuretics or other heart failure treatments[C] [ ]b) Altered mental status that is severe or persistent [ ]c) Increased creatinine (new on laboratory test) with reduction of more than 50% in estimated glomerular filtration rate from baseline. [ ]d) Progressively (ongoing) rising creatinine (known from past laboratory test) with reduction of more than 25% in estimated glomerular filtration rate from baseline [ ]e) Acute renal insufficiency (progressively (ongoing) rising creatinine (known from past laboratory test) with reduction of more than 25% in estimated glomerular filtration rate from baseline. [ ]f) Acute renal failure [ ]g) Acute peripheral ischemia (e.g., examination shows pulseless, cool, mottled, or cyanotic extremity) [ ]h) Oyxgen administration or respiratory treatments have been needed for over 24 hours that are performable only in acute inpatient setting [ ]i) Pulmonary artery catheter monitoring [X ]j) Other condition, treatment or monitoring requiring inpatient admission Extended stay beyond goal length of stay may be needed for(1)(14)(38)(42)(45) [ ]a) Cardiac ischemia, confirmed or suspected as precipitant (1) [ ]b) Cardiogenic shock (2)(46)(47)(48)(49) [ ]c) Acute renal failure [ ]d) Stage IV chronic kidney disease (estimated glomerular filtration rate of less than 30 mL/min/1.73m2 (0.50 mL/sec/1.73m2), and not previously on chronic dialysis [ ]e) Respiratory failure (eg, need for noninvasive or invasive ventilation) ( 50) [ ]f) Concomitant pneumonia or significant electrolyte abnormality (eg, severe hyponatremia) (51) [ ]g) Newly diagnosed (new onset) atrial fibrillation (52)(53) The original [facility] content created by [employer] has been revised. The portions of the content which have been revised are identified through the use of italic text or in bold, and [facility] has neither reviewed nor approved the modified material. All other unmodified content is copyright [facility]. Please see references footnoted in the original [facility] edition 2017 Admit Criteria Met?: Yes
[2016-07-31 05:22] LABS: % BASOPHILS 0.7 % (0.0-2.0); % EOSINOPHILS 1.7 % (0.0-5.0); % LYMPHOCYTES 8.1 % (20.0-50.0); % MONOCYTES 3.4 % (2.0-10.0); % NEUTROPHILS 86.1 % (40.0-80.0); HEMATOCRIT 45.2 % (39.0-49.0); HEMOGLOBIN 14.9 gm/dL (13.2-17.3); MEAN CELL VOLUME 90.5 fl (80-99); MEAN CORPUSCULAR HEMOGLOBIN 29.8 pg (26.0-30.0); MEAN CORPUSCULAR HGB CONC 32.9 pg (28.0-36.0); MEAN PLATELET VOLUME 8.9 fl; NEUTROPHILE ABSOLUTE 13.9 Th/cmm (1.8-8.0); RED CELL DISTRIBUTION WIDTH 15.2 % (11.5-20.0)
[2016-07-31 05:31] LABS: ANION GAP 10.1 (7.0-16.0); BUN - UREA NITROGEN 16 mg/dL (7-25); CALCIUM SERUM 9.2 mg/dL (8.6-10.3); CARBON DIOXIDE 24.6 mEq/L (21.0-31.0); CHLORIDE 100 mEq/L (98-107); CREATININE - SERUM 0.8 mg/dL (0.7-1.3); SODIUM SERUM 132 mEq/L (136-145)
[2016-07-31 06:02] LABS: WHITE BLOOD COUNT 16.1 Th/cmm (4.8-10.8)
[2016-07-31 06:03] LABS: PLATELET COUNT 382 Th/cmm (150-400)
[2016-07-31 06:27] LABS: GLUCOSE 36 mg/dL (70-105); POTASSIUM SERUM 2.7 mEq/L (3.5-5.1)
[2016-07-31] MEDS: INSULIN ASPART SLIDING SCALE 100 UNITS/ML UNIT SUBQ SCH ×4 (08:13→20:30)
[2016-07-31] MEDS: Atorvastatin Calcium 10 MG TAB PO SCH (09:11)
--- NOTE | 2016-07-31 09:42 | Diagnostic Imaging Report ---
Portable chest x-ray HISTORY: Shortness of breath, congestive heart failure Compared with the prior exam of 07/30/2016, decrease in bilateral pleural effusions. The heart remains enlarged. No focal pulmonary parenchymal processes. IMPRESSION: 1. Decreased bilateral pleural effusions 2. No focal pulmonary parenchymal processes 3. Cardiomegaly
--- NOTE | 2016-07-31 09:43 | Diagnostic Imaging Report ---
Portable chest x-ray HISTORY: Shortness of breath The heart is enlarged. There are small bilateral pleural effusions (right greater than left). No focal pulmonary parenchymal processes. IMPRESSION: 1. Small bilateral pleural effusions 2. Cardiomegaly Findings may be associated with a degree of congestive heart failure. Clinical correlation is needed.
[2016-07-31] MEDS: KCL 20mEq/100mL Premix 20 MEQ/100 ML PIGGYBACK IV SCH ×2 (09:50→11:50)
[2016-07-31] MEDS: cefTRIAXone 1 GM in Sodium Chloride 0.9% 50 ML IV SCH (11:00)
[2016-07-31] MEDS ORDERED: Potassium Chloride 20 mEq ER Tab PO ONE (13:30)
[2016-07-31] MEDS: Insulin Detemir 100 units/mL 10mL Vial SUBQ SCH (20:31)
[2016-07-31] MEDS: Hydrocodone/APAP 10 mg/325 mg Tab PO PRN (23:54)
--- NOTE | 2016-08-01 00:11 | Consultation ---
DATE OF CONSULTATION: 07/31/2016 LOCATION: [facility], room #17, bed 2. ATTENDING PHYSICIAN: Dr. Hernandes. I thank you very much, Dr. Hernandes for this consult. IDENTIFICATION: This is a 55-year-old male patient, conscious, alert, good historian. HISTORY OF PRESENT ILLNESS: A 55-year-old male patient who is known case of multiple medical problems. The patient is a known case of diabetes mellitus and hypertension. He also has recurrent ascites. 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 The patient also has a history of COPD, asthma, hypertension, CHF and dyslipidemia. The patient came with complaint of leg swelling, arm swelling and shortness of breath. The patient was found to have CHF. The patient was started on the diuretic, at the same time the patient also was drinking excessive water and he was eating large amount of ice. The patient was found to have hyponatremia, uncontrolled diabetes mellitus, renal failure. Renal consultation has been requested. The patient today feels better. He came yesterday. He states his shortness of breath and leg swelling has improved. He denies chest pain. Denies palpitation. Does not complain of vomiting or diarrhea. He states that he is anorexic secondary to his abdominal swelling. He states that his left side of the face was swollen, but it has subsided at this time. The patient states that he is taking all his medication at home regularly. PAST MEDICAL AND SURGICAL HISTORY: As stated above, diabetes mellitus, hypertension, CHF, proteinuria, history of liver disease secondary to alcohol, history of asthma, ascites, COPD, dyslipidemia. SOCIAL HISTORY: No current history of alcoholism or smoking or drug use. The patient used to drink heavy before. PHYSICAL EXAMINATION: VITAL SIGNS: Temperature 97.2, pulse 85, blood pressure 130/87, oxygen saturation 99. Yesterday's intake , output not available. HEART: Regular. LUNGS: Few rales and rhonchi in both the bases. NECK: Jugular venous pressure is slightly distended. No neck stiffness, no lymphadenopathy. HEART: Regular. [place] in the sixth intercostal space outside the midclavicular line. ABDOMEN: Soft, ascites present. Bowel sounds are present. EXTREMITIES: Edema trace. No calf tenderness. SIGNIFICANT LABORATORY DATA: WBC 16.1, hemoglobin 14.9, platelet count 382,000. Yesterday sodium 125, potassium 3.7, chloride 95, CO2 of 20.5, blood sugar 525. BUN and creatinine normal. Today sodium improved to 132, potassium 2.7, blood sugar 36, which improved to 155. Ammonia 59, triglyceride 191. Urinalysis: Protein 3+, blood moderately positive, nitrite negative. ASSESSMENT AND PLAN: 1. Hyponatremia, most probably secondary to hyperglycemia and excessive water and ice intake. 2. Uncontrolled diabetes mellitus. 3. Acidosis, non-anion gap. 4. Congestive heart failure, improving. 5. Elevated ammonia level. 6. Hypokalemia. 7. Proteinuria, most probably secondary to diabetes mellitus. 8. History of liver disease secondary to alcohol use in the past. 9. Hypertension. 10. Asthma. 11. History of dyslipidemia. 12. Chronic obstructive pulmonary disease. 13. Ascites. PLAN: The patient has been advised to stop taking ice by mouth, he will decrease IV intake and water intake. We the patient KCl rider with Asantiix. Check phosphorus, magnesium, TSH, uric acid, CMP, phosphorus. He had a urinalysis in the morning. Case was discussed with patient and nursing staff at length. JOB# [id number]
[2016-08-01] MEDS: INSULIN ASPART SLIDING SCALE 100 UNITS/ML UNIT SUBQ SCH ×4 (06:40→20:38)
[2016-08-01 07:10] LABS: % BASOPHILS 2.8 % (0.0-2.0); % EOSINOPHILS 5.2 % (0.0-5.0); % LYMPHOCYTES 14.4 % (20.0-50.0); % MONOCYTES 4.6 % (2.0-10.0); HEMATOCRIT 43.5 % (39.0-49.0); HEMOGLOBIN 14.2 gm/dL (13.2-17.3); MEAN CELL VOLUME 90.7 fl (80-99); MEAN CORPUSCULAR HEMOGLOBIN 29.6 pg (26.0-30.0); MEAN CORPUSCULAR HGB CONC 32.6 pg (28.0-36.0); NEUTROPHILE ABSOLUTE 8.9 Th/cmm (1.8-8.0); PLATELET COUNT 367 Th/cmm (150-400); RED BLOOD COUNT 4.79 Mil/cmm (4.30-5.70); RED CELL DISTRIBUTION WIDTH 14.9 % (11.5-20.0); WHITE BLOOD COUNT 12.2 Th/cmm (4.8-10.8)
[2016-08-01 07:38] LABS: ALB/GLOB RATIO 0.6 (1.0-1.8); ALKALINE PHOSPHATASE 251 U/L (34-104); ANION GAP 6.7 (7.0-16.0); BILIRUBIN,TOTAL 0.3 mg/dL (0.3-1.0); BUN - UREA NITROGEN 28 mg/dL (7-25); CALCIUM SERUM 9.6 mg/dL (8.6-10.3); CARBON DIOXIDE 31.3 mEq/L (21.0-31.0); CHLORIDE 98 mEq/L (98-107); GLUCOSE 70 mg/dL (70-105); MAGNESIUM 1.8 mg/dL (1.9-2.7); PHOSPHOROUS 3.8 mg/dL (2.5-5.0); SGOT 42 U/L (13-39); SGPT/ALT 25 U/L (7-52); SODIUM SERUM 132 mEq/L (136-145); URIC ACID 6.1 mg/dL (4.4-7.6)
[2016-08-01] MEDS: Hydrocodone/APAP 10 mg/325 mg Tab PO PRN (08:28)
[2016-08-01] MEDS: Atorvastatin Calcium 10 MG TAB PO SCH (08:28)
--- NOTE | 2016-08-01 09:12 | Diagnostic Imaging Report ---
Renal ultrasound HISTORY: Hematuria The right kidney is normal in size (10.4 x 5.0 x 4.5 cm). There is a questionable 4.1 x 2.4 cm hypoechoic lesion within the posterior cortex. A CT scan would provide additional detail. No hydronephrosis. The left kidney is normal in size (11.6 x 6.6 x 5.4 cm). No definite focal lesions. No hydronephrosis. No abnormality seen in the region of the urinary bladder. There is suggestion of minimal perihepatic fluid. IMPRESSION: 1. Questionable right renal lesion. A CT scan would provide additional detail and assessment. 2. Suggestion of minimal perihepatic fluid. Again, a CT scan would provide additional assessment and detail.
[2016-08-01] MEDS: cefTRIAXone 1 GM in Sodium Chloride 0.9% 50 ML IV SCH (11:34)
--- NOTE | 2016-08-01 14:32 | General Progress Note ---
Subjective - Review of Systems Service Date: 08/01/16 Subjective: Patient feels better denied any complaints requested to have more food Objective - Results Result Diagrams: 08/01/16 06:25 08/01/16 06:25 Recent Labs: Laboratory Last Values WBC 12.2 Th/cmm (4.8-10.8) H D 08/01/16 06:25 RBC 4.79 Mil/cmm (4.30-5.70) 08/01/16 06:25 Hgb 14.2 gm/dL (13.2-17.3) 08/01/16 06:25 Hct 43.5 % (39.0-49.0) 08/01/16 06:25 MCV 90.7 fl (80-99) 08/01/16 06:25 MCH 29.6 pg (26.0-30.0) 08/01/16 06:25 MCHC Differential 32.6 pg (28.0-36.0) 08/01/16 06:25 RDW 14.9 % (11.5-20.0) 08/01/16 06:25 Plt Count 367 Th/cmm (150-400) 08/01/16 06:25 MPV 9.0 fl 08/01/16 06:25 Neutrophils % 73.0 % (40.0-80.0) 08/01/16 06:25 Lymphocytes % 14.4 % (20.0-50.0) L 08/01/16 06:25 Monocytes % 4.6 % (2.0-10.0) 08/01/16 06:25 Eosinophils % 5.2 % (0.0-5.0) H 08/01/16 06:25 Basophils % 2.8 % (0.0-2.0) H 08/01/16 06:25 PT 10.6 SECONDS (9.5-11.5) 07/30/16 16:02 INR 1.02 (0.5-1.4) 07/30/16 16:02 PTT (Actin FS) 23.9 SECONDS (26.0-38.0) L 07/30/16 16:02 Sodium 132 mEq/L (136-145) L 08/01/16 06:25 Potassium 4.0 mEq/L (3.5-5.1) 08/01/16 06:25 Chloride 98 mEq/L (98-107) 08/01/16 06:25 Carbon Dioxide 31.3 mEq/L (21.0-31.0) H 08/01/16 06:25 Anion Gap 6.7 (7.0-16.0) L 08/01/16 06:25 BUN 28 mg/dL (7-25) H 08/01/16 06:25 Creatinine 1.0 mg/dL (0.7-1.3) 08/01/16 06:25 Est GFR ( Amer) > 60.0 ml/min (>90) 08/01/16 06:25 Est GFR (Non-Af Amer) > 60.0 ml/min 08/01/16 06:25 BUN/Creatinine Ratio 28.0 08/01/16 06:25 Glucose 70 mg/dL (70-105) 08/01/16 06:25 POC Glucose 349 MG/DL (70 - 105) H 08/01/16 11:33 Hemoglobin A1c % 13.8 % (4.0-6.0) H 07/30/16 16:02 Uric Acid 6.1 mg/dL (4.4-7.6) 08/01/16 06:25 Calcium 9.6 mg/dL (8.6-10.3) 08/01/16 06:25 Phosphorus 3.8 mg/dL (2.5-5.0) 08/01/16 06:25 Magnesium 1.8 mg/dL (1.9-2.7) L 08/01/16 06:25 Total Bilirubin 0.3 mg/dL (0.3-1.0) 08/01/16 06:25 AST 42 U/L (13-39) H 08/01/16 06:25 ALT 25 U/L (7-52) 08/01/16 06:25 Alkaline Phosphatase 251 U/L (34-104) H 08/01/16 06:25 Ammonia 59 umol/L (16-53) H 07/30/16 16:02 Troponin I 0.07 ng/mL (0.01-0.05) H* D 07/30/16 16:02 B-Natriuretic Peptide > 5000.0 pg/mL (5.0-100.0) H 08/01/16 06:25 Total Protein 6.5 gm/dL (6.0-8.3) 08/01/16 06:25 Albumin 2.4 gm/dL (4.2-5.5) L 08/01/16 06:25 Globulin 4.1 gm/dL 08/01/16 06:25 Albumin/Globulin Ratio 0.6 (1.0-1.8) L 08/01/16 06:25 Triglycerides 191 mg/dL (<150) H 07/30/16 16:02 Cholesterol 195 mg/dL (<200) 07/30/16 16:02 LDL Cholesterol Direct 115 mg/dL (75-193) 07/30/16 16:02 HDL Cholesterol 55 mg/dL (23-92) 07/30/16 16:02 TSH 3.35 uIU/ml (0.34-5.60) 07/30/16 16:02 Urine Source CLEAN C 07/30/16 16:50 Urine Color YELLOW 07/30/16 16:50 Urine Clarity CLEAR (CLEAR) 07/30/16 16:50 Urine pH 6.0 07/30/16 16:50 Ur Specific [place] 1.015 (1.005-1.030) 07/30/16 16:50 Urine Protein >300 mg/dL (NEGATIVE) H 07/30/16 16:50 Urine Glucose (UA) 500 mg/dL (NEGATIVE) H 07/30/16 16:50 Urine Ketones NEGATIVE mg/dL (NEGATIVE) 07/30/16 16:50 Urine Blood MODERATE (NEGATIVE) H 07/30/16 16:50 Urine Nitrate NEGATIVE (NEGATIVE) 07/30/16 16:50 Urine Bilirubin NEGATIVE (NEGATIVE) 07/30/16 16:50 Urine Urobilinogen 1.0 E.U./dL (0.2 - 1.0) 07/30/16 16:50 Ur Leukocyte Esterase NEGATIVE (NEGATIVE) 07/30/16 16:50 Urine RBC 5-10 /hpf (0-5) H 07/30/16 16:50 Urine WBC 0-2 /hpf (0-5) 07/30/16 16:50 Ur Epithelial Cells FEW /lpf (FEW) 07/30/16 16:50 Urine Bacteria FEW /hpf (NONE SEEN) 07/30/16 16:50 Urine Yeast FEW /hpf (NONE SEEN) H 07/30/16 16:50 Urine Opiates Screen NEGATIVE (NEGATIVE) 07/30/16 16:50 Urine Methadone Screen NEGATIVE (NEGATIVE) 07/30/16 16:50 Ur Barbiturates Screen NEGATIVE (NEGATIVE) 07/30/16 16:50 Ur Tricyclics Screen NEGATIVE (NEGATIVE) 07/30/16 16:50 Ur Phencyclidine Scrn NEGATIVE (NEGATIVE) 07/30/16 16:50 Amphetamines Screen NEGATIVE (NEGATIVE) 07/30/16 16:50 U Methamphetamines Scrn NEGATIVE (NEGATIVE) 07/30/16 16:50 U Benzodiazepines Scrn NEGATIVE (NEGATIVE) 07/30/16 16:50 U Cocaine Metab Screen NEGATIVE (NEGATIVE) 07/30/16 16:50 U Cannabinoids Screen NEGATIVE (NEGATIVE) 07/30/16 16:50 Ethyl Alcohol 21 mg/dL (0-10) H 07/30/16 16:02 RPR NONREACTIVE (NONREACTIVE) 07/30/16 16:02 - Physical Exam Vitals and I&O: Vital Signs Temp 97.3 F 08/01/16 11:50 Pulse 97 08/01/16 11:50 Resp 20 08/01/16 11:50 BP 128/95 08/01/16 11:50 Pulse Ox 99 08/01/16 11:50 Intake & Output 07/31/16 08/01/16 08/01/16 18:59 06:59 18:59 Intake Total 950 800 50 Output Total 1350 1300 Balance -400 -500 50 Weight (lbs) 64.501 kg 63.185 kg Intake: Intake, IV Amount 250 50 KCL 20mEq/100mL Premix 20 200 meq In 100 ml @ 50 mls/ hr IV Q2H MARIO Rx#: [id number] cefTRIAXone 1 gm In 50 50 Sodium Chloride 0.9% 50 ml @ 100 mls/hr IV Q24HR MARIO Rx#:[id number] Oral 700 800 Output: Urine 1350 1300 Other: # Voids 2 # Bowel Movements 3 Active Medications: Current Medications Acetaminophen/Hydrocodone Bitart ([place] 10 Mg/325 Mg) 1 tab PO Q6H PRN PRN Reason: Pain (Severe) Stop: 09/28/16 21:18 Last Admin: 08/01/16 08:28 Dose: 1 tab Albuterol Sulfate (Albuterol 2.5mg/3ml Neb Ud) 2.5 mg HHN Q4H PRN PRN Reason: Shortness of Breath or Wheeze Stop: 09/28/16 19:59 Last Admin: 07/31/16 18:48 Dose: 2.5 mg Atorvastatin Calcium (Lipitor) 40 mg PO DAILY MARIO PRN Reason: Protocol Stop: 09/29/16 08:59 Last Admin: 08/01/16 08:28 Dose: 40 mg Furosemide (Lasix) 40 mg IVP BID [facility] Stop: 09/28/16 20:14 Last Admin: 08/01/16 08:28 Dose: 40 mg Ceftriaxone Sodium 1 gm/ (Sodium Chloride) 50 mls @ 100 mls/hr IV Q24HR [facility] Stop: 09/29/16 10:59 Last Infusion: 08/01/16 12:05 Dose: Infused Insulin Aspart (Novolog Insulin Sliding Scale) 0 units SUBQ ACHS MARIO PRN Reason: Protocol Stop: 09/28/16 20:59 Last Admin: 08/01/16 11:38 Dose: 8 units Insulin Detemir (Levemir Insulin) 15 units SUBQ HS [facility] PRN Reason: Protocol Stop: 09/28/16 20:59 Last Admin: 07/31/16 20:31 Dose: 15 units Ketorolac Tromethamine (Toradol) 30 mg IVP Q6HR PRN PRN Reason: Pain (Moderate) Stop: 09/28/16 19:52 Last Admin: 07/31/16 10:38 Dose: 30 mg Lisinopril (Zestril) 20 mg PO DAILY [facility] Stop: 10/01/16 08:59 Magnesium Chloride (Slow-Mag) 1 ect PO DAILY [facility] Stop: 10/01/16 08:59 Mupirocin (Bactroban Oint) 1 appl TP BID [facility] Stop: 08/06/16 08:59 Last Admin: 08/01/16 09:19 Dose: 1 appl Cardiovascular: Regular rate Lungs: Other (rales better) Abdomen: Soft - Procedures Procedures: Procedures Procedure Code Date JUAN DIEGO BONE 20 SQ CM/< 28080 02/11/15 EXCISION OF RIGHT RADIUS, OPEN APPROACH [id number] 02/11/15 Assessment/Plan - Problem List Patient Problems: All Active Problems Arm pain (Acute) COUGH WITH CONGESTION AND FACIAL LESIONS (Acute) - Assessment Assessment: Acute/chronic systolic heart failure CHF exacerbation DM with hyperglycemia HTN Microscopic hematuria Leucocytosis Better ? Reactive Hyperlipidemia Non Compliance Hyponatremia better - Plan Plan: Continue Agreesive Diuresis Lisinopril Statin Empiric Rocephine Diabetic diet Lantus Accucheck Outpt Treatment compliance highly advised Nutritional Asmnt/Malnutr-PDOC - Dietary Evaluation Malnutrition Findings (Please click <Entered> for more info): Nutritional Asmnt/Malnutrition Start: 07/31/16 10: 31 Text: Status: Complete Freq: Document 07/31/16 10:32 ALLYSON (Rec: 07/31/16 10:39 ALLYSON CABALLERO- [email or web address]) Nutritional Asmnt/Malnutrition Patient General Information Nutritional Screening High Risk Screening Diagnosis CHF Exacerbation Pertinent Medical Hx/Surgical Hx DM, HTN, CHF, asthma, COPD, dyslipdemia Subjective Information Pt sitting up in bed reports having DM for "a long time" and that he checks his blood sugar once a day in the evening. Pt could not give a range of what his blood sugar usually runs but states that he takes 20units every night. Went over low blood sugar signs and symtoms and rule of 15 and Pt stated he already knew. Current Diet Order/ Nutrition Support Low sodium Patient / S.O Not Indicated Pertinent Medications lasix, lipitor, insulin Pertinent Labs 07/31/16: Na 132, K 2.7, Cl 100 , CO2 24.6, BUN 16, Cr 0.8, Ca 9.2, glucose 394 on admission and then POc glucose 36 Nutritional Hx/Data Height 1.7 m Height (Calculated Centimeters) 170.2 Current Weight (lbs) 64.41 kg Weight (Calculated Kilograms) 64.4 Weight (Calculated Grams) 98630.1 Recent Weight Change No Weight Status Approriate GI Symptoms GI Symptoms None Food Allergies No Cultural/Ethnic/Tenriism Belief Pt denies Usual diet at home Pt admits he drinks alcohol and does not always eat 3 meals a day Skin Integrity/Comment: lorie score 16, R/L LE 4+ edema Current %PO Good (75-100%) Estimated Nutritional Goals BEE in Kcals: Using Current wt Calories/Kcals/Kg 25-30kcals/kg Kcals Calculated 1600-1920kcals/day Protein: Using Current wt Protein g/k.2-1.5 Protein Calculated 77-96g/day Fluid: ml per MD Nutritional Problem 1. Problem Problem Altered nutrition related lab values Etiology related to endocrine dysfunction as evidenced by Signs/Symptoms: POC glucose 36, glucsoe 394. Intervention/Recommendation Comments Recommend CCHO 2g Na diet. Expected Outcomes/Goals Expected Outcomes/Goals PO intake >75% of meals.
[2016-08-01] MEDS: Insulin Detemir 100 units/mL 10mL Vial SUBQ SCH (20:39)
[2016-08-02] MEDS: INSULIN ASPART SLIDING SCALE 100 UNITS/ML UNIT SUBQ SCH ×4 (06:47→21:41)
[2016-08-02 06:51] LABS: ANION GAP 11.9 (7.0-16.0); BUN - UREA NITROGEN 22 mg/dL (7-25); BUN/CREATININE RATIO 24.4; CALCIUM SERUM 9.8 mg/dL (8.6-10.3); CARBON DIOXIDE 25.9 mEq/L (21.0-31.0); CHLORIDE 99 mEq/L (98-107); CREATININE - SERUM 0.9 mg/dL (0.7-1.3); POTASSIUM SERUM 3.8 mEq/L (3.5-5.1); SODIUM SERUM 133 mEq/L (136-145)
[2016-08-02 07:13] LABS: GLUCOSE 39 mg/dL (70-105)
[2016-08-02] MEDS: Atorvastatin Calcium 10 MG TAB PO SCH (08:53)
[2016-08-02] MEDS: Magnesium Chloride EC 64mg Tab PO SCH (08:54)
[2016-08-02] MEDS: Hydrocodone/APAP 10 mg/325 mg Tab PO PRN ×2 (09:17→21:49)
[2016-08-02] MEDS: cefTRIAXone 1 GM in Sodium Chloride 0.9% 50 ML IV SCH (11:10)
--- NOTE | 2016-08-02 13:21 | General Progress Note ---
Subjective - Review of Systems Service Date: 08/02/16 Subjective: Patient feels better denied any complaints Objective - Results Result Diagrams: 08/01/16 06:25 08/02/16 05:45 Recent Labs: Laboratory Last Values WBC 12.2 Th/cmm (4.8-10.8) H D 08/01/16 06:25 RBC 4.79 Mil/cmm (4.30-5.70) 08/01/16 06:25 Hgb 14.2 gm/dL (13.2-17.3) 08/01/16 06:25 Hct 43.5 % (39.0-49.0) 08/01/16 06:25 MCV 90.7 fl (80-99) 08/01/16 06:25 MCH 29.6 pg (26.0-30.0) 08/01/16 06:25 MCHC Differential 32.6 pg (28.0-36.0) 08/01/16 06:25 RDW 14.9 % (11.5-20.0) 08/01/16 06:25 Plt Count 367 Th/cmm (150-400) 08/01/16 06:25 MPV 9.0 fl 08/01/16 06:25 Neutrophils % 73.0 % (40.0-80.0) 08/01/16 06:25 Lymphocytes % 14.4 % (20.0-50.0) L 08/01/16 06:25 Monocytes % 4.6 % (2.0-10.0) 08/01/16 06:25 Eosinophils % 5.2 % (0.0-5.0) H 08/01/16 06:25 Basophils % 2.8 % (0.0-2.0) H 08/01/16 06:25 PT 10.6 SECONDS (9.5-11.5) 07/30/16 16:02 INR 1.02 (0.5-1.4) 07/30/16 16:02 PTT (Actin FS) 23.9 SECONDS (26.0-38.0) L 07/30/16 16:02 Sodium 133 mEq/L (136-145) L 08/02/16 05:45 Potassium 3.8 mEq/L (3.5-5.1) 08/02/16 05:45 Chloride 99 mEq/L (98-107) 08/02/16 05:45 Carbon Dioxide 25.9 mEq/L (21.0-31.0) 08/02/16 05:45 Anion Gap 11.9 (7.0-16.0) 08/02/16 05:45 BUN 22 mg/dL (7-25) 08/02/16 05:45 Creatinine 0.9 mg/dL (0.7-1.3) 08/02/16 05:45 Est GFR ( Amer) > 60.0 ml/min (>90) 08/02/16 05:45 Est GFR (Non-Af Amer) > 60.0 ml/min 08/02/16 05:45 BUN/Creatinine Ratio 24.4 08/02/16 05:45 Glucose 39 mg/dL (70-105) L* 08/02/16 05:45 POC Glucose 235 MG/DL (70 - 105) H 08/02/16 12:01 Hemoglobin A1c % 13.8 % (4.0-6.0) H 07/30/16 16:02 Uric Acid 6.1 mg/dL (4.4-7.6) 08/01/16 06:25 Calcium 9.8 mg/dL (8.6-10.3) 08/02/16 05:45 Phosphorus 3.8 mg/dL (2.5-5.0) 08/01/16 06:25 Magnesium 1.8 mg/dL (1.9-2.7) L 08/01/16 06:25 Total Bilirubin 0.3 mg/dL (0.3-1.0) 08/01/16 06:25 AST 42 U/L (13-39) H 08/01/16 06:25 ALT 25 U/L (7-52) 08/01/16 06:25 Alkaline Phosphatase 251 U/L (34-104) H 08/01/16 06:25 Ammonia 59 umol/L (16-53) H 07/30/16 16:02 Troponin I 0.07 ng/mL (0.01-0.05) H* D 07/30/16 16:02 B-Natriuretic Peptide 3700.0 pg/mL (5.0-100.0) H 08/02/16 05:45 Total Protein 6.5 gm/dL (6.0-8.3) 08/01/16 06:25 Albumin 2.4 gm/dL (4.2-5.5) L 08/01/16 06:25 Globulin 4.1 gm/dL 08/01/16 06:25 Albumin/Globulin Ratio 0.6 (1.0-1.8) L 08/01/16 06:25 Triglycerides 191 mg/dL (<150) H 07/30/16 16:02 Cholesterol 195 mg/dL (<200) 07/30/16 16:02 LDL Cholesterol Direct 115 mg/dL (75-193) 07/30/16 16:02 HDL Cholesterol 55 mg/dL (23-92) 07/30/16 16:02 TSH 3.35 uIU/ml (0.34-5.60) 07/30/16 16:02 Urine Source CLEAN C 07/30/16 16:50 Urine Color YELLOW 07/30/16 16:50 Urine Clarity CLEAR (CLEAR) 07/30/16 16:50 Urine pH 6.0 07/30/16 16:50 Ur Specific [place] 1.015 (1.005-1.030) 07/30/16 16:50 Urine Protein >300 mg/dL (NEGATIVE) H 07/30/16 16:50 Urine Glucose (UA) 500 mg/dL (NEGATIVE) H 07/30/16 16:50 Urine Ketones NEGATIVE mg/dL (NEGATIVE) 07/30/16 16:50 Urine Blood MODERATE (NEGATIVE) H 07/30/16 16:50 Urine Nitrate NEGATIVE (NEGATIVE) 07/30/16 16:50 Urine Bilirubin NEGATIVE (NEGATIVE) 07/30/16 16:50 Urine Urobilinogen 1.0 E.U./dL (0.2 - 1.0) 07/30/16 16:50 Ur Leukocyte Esterase NEGATIVE (NEGATIVE) 07/30/16 16:50 Urine RBC 5-10 /hpf (0-5) H 07/30/16 16:50 Urine WBC 0-2 /hpf (0-5) 07/30/16 16:50 Ur Epithelial Cells FEW /lpf (FEW) 07/30/16 16:50 Urine Bacteria FEW /hpf (NONE SEEN) 07/30/16 16:50 Urine Yeast FEW /hpf (NONE SEEN) H 07/30/16 16:50 Urine Opiates Screen NEGATIVE (NEGATIVE) 07/30/16 16:50 Urine Methadone Screen NEGATIVE (NEGATIVE) 07/30/16 16:50 Ur Barbiturates Screen NEGATIVE (NEGATIVE) 07/30/16 16:50 Ur Tricyclics Screen NEGATIVE (NEGATIVE) 07/30/16 16:50 Ur Phencyclidine Scrn NEGATIVE (NEGATIVE) 07/30/16 16:50 Amphetamines Screen NEGATIVE (NEGATIVE) 07/30/16 16:50 U Methamphetamines Scrn NEGATIVE (NEGATIVE) 07/30/16 16:50 U Benzodiazepines Scrn NEGATIVE (NEGATIVE) 07/30/16 16:50 U Cocaine Metab Screen NEGATIVE (NEGATIVE) 07/30/16 16:50 U Cannabinoids Screen NEGATIVE (NEGATIVE) 07/30/16 16:50 Ethyl Alcohol 21 mg/dL (0-10) H 07/30/16 16:02 RPR NONREACTIVE (NONREACTIVE) 07/30/16 16:02 - Physical Exam Vitals and I&O: Vital Signs Temp 98.7 F 08/02/16 10:31 Pulse 52 08/02/16 10:31 Resp 18 08/02/16 10:31 BP 115/72 08/02/16 10:31 Pulse Ox 94 08/02/16 10:31 Intake & Output 08/01/16 08/02/16 08/02/16 18:59 06:59 18:59 Intake Total 50 600 Output Total 1 Balance 50 599 Weight (lbs) 63.503 kg Intake: Intake, IV Amount 50 cefTRIAXone 1 gm In 50 Sodium Chloride 0.9% 50 ml @ 100 mls/hr IV Q24HR [facility] Rx#:[id number] Oral 600 Output: Stool 1 Other: # Voids 2 Stool Characteristics Soft Active Medications: Current Medications Acetaminophen/Hydrocodone Bitart ([place] 10 Mg/325 Mg) 1 tab PO Q6H PRN PRN Reason: Pain (Severe) Stop: 09/28/16 21:18 Last Admin: 08/02/16 09:17 Dose: 1 tab Albuterol Sulfate (Albuterol 2.5mg/3ml Neb Ud) 2.5 mg HHN Q4H PRN PRN Reason: Shortness of Breath or Wheeze Stop: 09/28/16 19:59 Last Admin: 07/31/16 18:48 Dose: 2.5 mg Atorvastatin Calcium (Lipitor) 40 mg PO DAILY [facility] PRN Reason: Protocol Stop: 09/29/16 08:59 Last Admin: 08/02/16 08:53 Dose: 40 mg Carvedilol (Coreg) 3.125 mg PO BID [facility] Stop: 10/01/16 16:59 Furosemide (Lasix) 40 mg IVP BID [facility] Stop: 09/28/16 20:14 Last Admin: 08/02/16 08:54 Dose: 40 mg Ceftriaxone Sodium 1 gm/ (Sodium Chloride) 50 mls @ 100 mls/hr IV Q24HR [facility] Stop: 09/29/16 10:59 Last Admin: 08/02/16 11:10 Dose: 100 mls/hr Insulin Aspart (Novolog Insulin Sliding Scale) 0 units SUBQ ACHS [facility] PRN Reason: Protocol Stop: 09/28/16 20:59 Last Admin: 08/02/16 12:09 Dose: 4 units Insulin Detemir (Levemir Insulin) 15 units SUBQ HS [facility] PRN Reason: Protocol Stop: 09/28/16 20:59 Last Admin: 08/01/16 20:39 Dose: 15 units Ketorolac Tromethamine (Toradol) 30 mg IVP Q6HR PRN PRN Reason: Pain (Moderate) Stop: 09/28/16 19:52 Last Admin: 07/31/16 10:38 Dose: 30 mg Lisinopril (Zestril) 20 mg PO DAILY [facility] Stop: 10/01/16 08:59 Last Admin: 08/02/16 08:55 Dose: 20 mg Magnesium Chloride (Slow-Mag) 1 ect PO DAILY [facility] Stop: 10/01/16 08:59 Last Admin: 08/02/16 08:54 Dose: 1 ect Mupirocin (Bactroban Oint) 1 appl TP BID [facility] Stop: 08/06/16 08:59 Last Admin: 08/02/16 08:53 Dose: 1 appl Cardiovascular: Regular rate Lungs: Clear to auscultation - Procedures Procedures: Procedures Procedure Code Date JUAN DIEGO BONE 20 SQ CM/< 60898 02/11/15 EXCISION OF RIGHT RADIUS, OPEN APPROACH [id number] 02/11/15 Assessment/Plan - Problem List Patient Problems: All Active Problems Arm pain (Acute) COUGH WITH CONGESTION AND FACIAL LESIONS (Acute) - Assessment Assessment: Acute/chronic systolic heart failure CHF exacerbation DM with hyperglycemia HTN Microscopic hematuria Leucocytosis Better ? Reactive Hyperlipidemia Non Compliance Hyponatremia better Bradycardia - Plan Plan: Reduce Coreg dose due to bradycardia Continue Agreesive Diuresis Lisinopril Statin Rocephine Diabetic diet Lantus Accucheck Outpt Treatment compliance highly advised Nutritional Asmnt/Malnutr-PDOC - Dietary Evaluation Malnutrition Findings (Please click <Entered> for more info): Nutritional Asmnt/Malnutrition Start: 07/31/16 10: 31 Text: Status: Complete Freq: Document 07/31/16 10:32 ALLYSON (Rec: 07/31/16 10:39 ALLYSON CABALLERO- [email or web address]) Nutritional Asmnt/Malnutrition Patient General Information Nutritional Screening High Risk Screening Diagnosis CHF Exacerbation Pertinent Medical Hx/Surgical Hx DM, HTN, CHF, asthma, COPD, dyslipdemia Subjective Information Pt sitting up in bed reports having DM for "a long time" and that he checks his blood sugar once a day in the evening. Pt could not give a range of what his blood sugar usually runs but states that he takes 20units every night. Went over low blood sugar signs and symtoms and rule of 15 and Pt stated he already knew. Current Diet Order/ Nutrition Support Low sodium Patient / S.O Not Indicated Pertinent Medications lasix, lipitor, insulin Pertinent Labs 07/31/16: Na 132, K 2.7, Cl 100 , CO2 24.6, BUN 16, Cr 0.8, Ca 9.2, glucose 394 on admission and then POc glucose 36 Nutritional Hx/Data Height 1.7 m Height (Calculated Centimeters) 170.2 Current Weight (lbs) 64.41 kg Weight (Calculated Kilograms) 64.4 Weight (Calculated Grams) 10134.1 Recent Weight Change No Weight Status Approriate GI Symptoms GI Symptoms None Food Allergies No Cultural/Ethnic/Congregation Belief Pt denies Usual diet at home Pt admits he drinks alcohol and does not always eat 3 meals a day Skin Integrity/Comment: lorie score 16, R/L LE 4+ edema Current %PO Good (75-100%) Estimated Nutritional Goals BEE in Kcals: Using Current wt Calories/Kcals/Kg 25-30kcals/kg Kcals Calculated 1600-1920kcals/day Protein: Using Current wt Protein g/k.2-1.5 Protein Calculated 77-96g/day Fluid: ml per MD Nutritional Problem 1. Problem Problem Altered nutrition related lab values Etiology related to endocrine dysfunction as evidenced by Signs/Symptoms: POC glucose 36, glucsoe 394. Intervention/Recommendation Comments Recommend CCHO 2g Na diet. Expected Outcomes/Goals Expected Outcomes/Goals PO intake >75% of meals.
--- NOTE | 2016-08-02 16:53 | History & Physical ---
ADMIT DATE: 07/30/2016 REASON FOR ADMISSION: Shortness of breath. HISTORY OF PRESENT ILLNESS: This is a 55-year-old male with underlying history of systolic heart failure, diabetes, hypertension, hyperlipidemia, who was evaluated in the Emergency Room for bilateral lower extremity severe swelling associated with shortness of breath. The patient was admitted and diagnosed with COPD exacerbation and also noticed to have a high blood sugar, so the patient admitted for further treatment. The patient said that for the past few days, he has not been taking his medications because they were stolen. The patient stated he has been drinking alcohol, but denies any street drug use. He has a prior history of drug abuse. The patient has been noncompliant with his followup appointments. The patient denies any chest pain, shortness of breath, dizziness, palpitations. No fever, no chills. No abdominal pain, no vomiting or other complaints at the time of evaluation. PAST MEDICAL HISTORY: Diabetes, hypertension, hyperlipidemia, systolic heart failure, and chronic eczema. PAST SURGICAL HISTORY: Noncontributory. SOCIAL HISTORY: The patient currently lives on [address] Positive for alcohol use. Denies any tobacco or street drug use. He is an ex-smoker. CURRENT MEDICATIONS: As per medication reconciliation list includes Lasix, Coreg, Lipitor, albuterol, [place], insulin, lisinopril, Bactroban. ALLERGIES: No known drug allergies. REVIEW OF SYSTEMS: The patient denies any fever. No chills, no nausea, no vomiting, no abdominal pain, no headache, no trouble vision, no trouble speech. No dysuria, no hematuria or other complaints. PHYSICAL EXAMINATION: VITAL SIGNS: Temperature 98.7, pulse 52, respirations 18, blood pressure 115/70, oxygen 94% on room air. GENERAL APPEARANCE: The patient does not seem in acute distress. LUNGS: Unremarkable. HEART: S1 and S2 normal. LUNGS: Bilateral rales. ABDOMEN: Soft, nontender, no guarding noted. NEUROLOGIC: The patient is alert and awake. Moves all extremities. No focal deficits. EXTREMITIES: +1 pitting edema noted. SKIN: Bilateral hand dry, ____ skin lesions noted. AVAILABLE LABORATORY DATA: Chest x-ray upon admission suggestive of ____ effusion, cardiomegaly and CHF. LABORATORY DATA: WBC 11.7, hemoglobin is 14.6, hematocrit is 45.1, platelets 298. Sodium was 125, potassium was 3.7, BUN 16, creatinine 0.9, sugar 525, troponin 0.07. BNP was more than 5000. Cholesterol was 195, LDL was 115, triglycerides 191. TSH was 3.35. Uric acid 8.7, hemoglobin A1c was 13.8. Urine toxicology negative. Ethyl alcohol level was 21. Urinalysis was protein more than 300, glucose 500, leuk esterase negative, moderate blood, negative nitrites, ____. ASSESSMENT: 1. Systolic heart failure versus acute (congestive heart failure exacerbation). 2. Diabetes, hyperglycemia. 3. Hypertension. 4. Hyperlipidemia. 5. Chronic eczema. 6. Leukocytosis. 7. Microscopic hematuria. 8. Noncompliance. PLAN: The patient admitted on the tele bed. Cardiology was consulted. The patient is on aggressive diuresis and ____ antibiotic was started. We will do Accu-Cheks and long acting basal bolus insulin was started. Nebulized treatments will be given. Oxygen will be given. ____. The patient was started on MAINOR inhibitors with Pharmacology recommendations. Discussed with the patient regarding his condition. Plan of care was discussed with nursing staff. JOB# [id number]
[2016-08-02] MEDS: Insulin Detemir 100 units/mL 10mL Vial SUBQ SCH (21:40)
--- NOTE | 2016-08-03 00:13 | Consultation ---
DATE OF CONSULTATION: 07/31/[address] Hernandes. HISTORY AND PHYSICAL: This 55-year-old male patient who has a known history of diabetes. The patient is a poor compliant patient. The patient has been complaining of polyuria and polydipsia. The patient came to the Emergency Room with uncontrolled diabetes, hyponatremia. Hence the patient is admitted. No history of PND or orthopnea. PAST MEDICAL HISTORY: Diabetes mellitus type 2, hypertension, cirrhosis of liver, ascites, asthma, COPD, hyperlipidemia, alcohol dependence, poor compliance with diabetes. FAMILY HISTORY: Unremarkable. SOCIAL HISTORY: The patient has a history of alcohol use. The patient does smoke and poor compliance. PHYSICAL EXAMINATION: VITAL SIGNS: Blood pressure 120/88, pulse 78, respirations 28, temperature 98. HEAD: Normocephalic. No lumps or bumps. EYES: Pupils equal, reactive to light. Fundi show AV nicking, sclerae white. Conjunctivae pink. NECK: Carotid 2+. Normal upstroke. JVD 10 cm above the sternal angle. Thyroid not palpable. Lymph nodes not palpable. CHEST: Shows increased AP diameter. No kyphosis, scoliosis. LUNGS: Bilateral rales. Decreased breath sounds in both the bases. HEART: PMI sixth intercostal space with lateral to midclavicular line. S1, S2, S3, S4, systolic murmur grade 2/6 the left sternal border without radiation. ABDOMEN: Soft. Liver, spleen not palpable. Minimal fluid in abdomen. EXTREMITIES: No pedal edema. CLINICAL IMPRESSION: Hyponatremia secondary to volume depletion; uncontrolled diabetes mellitus type 2; congestive heart failure; chronic diastolic dysfunction, improving; elevated ammonia level resulting from cirrhosis of liver, hypokalemia, hyponatremia, diabetic CKD stage 2, hypertension, asthma, hyperlipidemia, chronic obstructive pulmonary disease. PLAN: The patient is to have echocardiogram and monitor the patient closely, control blood pressures, have Renal consult. JOB# [id number]
[2016-08-03 07:08] LABS: ANION GAP 7.5 (7.0-16.0); BUN - UREA NITROGEN 24 mg/dL (7-25); CALCIUM SERUM 9.8 mg/dL (8.6-10.3); CARBON DIOXIDE 31.2 mEq/L (21.0-31.0); CHLORIDE 98 mEq/L (98-107); CREATININE - SERUM 0.8 mg/dL (0.7-1.3); GLUCOSE 83 mg/dL (70-105); POTASSIUM SERUM 3.7 mEq/L (3.5-5.1); SODIUM SERUM 133 mEq/L (136-145)
[2016-08-03] MEDS: INSULIN ASPART SLIDING SCALE 100 UNITS/ML UNIT SUBQ SCH ×4 (08:06→21:10)
[2016-08-03] MEDS: Atorvastatin Calcium 10 MG TAB PO SCH (08:20)
[2016-08-03] MEDS: Magnesium Chloride EC 64mg Tab PO SCH (08:25)
[2016-08-03] MEDS: cefTRIAXone 1 GM in Sodium Chloride 0.9% 50 ML IV SCH (12:16)
[2016-08-03] MEDS: Insulin Detemir 100 units/mL 10mL Vial SUBQ SCH (21:10)
--- NOTE | 2016-08-03 23:07 | General Progress Note ---
Subjective - Review of Systems Service Date: 08/03/16 Subjective: Patient feels better denied any complaints Objective - Results Result Diagrams: 08/01/16 06:25 08/03/16 06:25 Recent Labs: Laboratory Last Values WBC 12.2 Th/cmm (4.8-10.8) H D 08/01/16 06:25 RBC 4.79 Mil/cmm (4.30-5.70) 08/01/16 06:25 Hgb 14.2 gm/dL (13.2-17.3) 08/01/16 06:25 Hct 43.5 % (39.0-49.0) 08/01/16 06:25 MCV 90.7 fl (80-99) 08/01/16 06:25 MCH 29.6 pg (26.0-30.0) 08/01/16 06:25 MCHC Differential 32.6 pg (28.0-36.0) 08/01/16 06:25 RDW 14.9 % (11.5-20.0) 08/01/16 06:25 Plt Count 367 Th/cmm (150-400) 08/01/16 06:25 MPV 9.0 fl 08/01/16 06:25 Neutrophils % 73.0 % (40.0-80.0) 08/01/16 06:25 Lymphocytes % 14.4 % (20.0-50.0) L 08/01/16 06:25 Monocytes % 4.6 % (2.0-10.0) 08/01/16 06:25 Eosinophils % 5.2 % (0.0-5.0) H 08/01/16 06:25 Basophils % 2.8 % (0.0-2.0) H 08/01/16 06:25 PT 10.6 SECONDS (9.5-11.5) 07/30/16 16:02 INR 1.02 (0.5-1.4) 07/30/16 16:02 PTT (Actin FS) 23.9 SECONDS (26.0-38.0) L 07/30/16 16:02 Sodium 133 mEq/L (136-145) L 08/03/16 06:25 Potassium 3.7 mEq/L (3.5-5.1) 08/03/16 06:25 Chloride 98 mEq/L (98-107) 08/03/16 06:25 Carbon Dioxide 31.2 mEq/L (21.0-31.0) H 08/03/16 06:25 Anion Gap 7.5 (7.0-16.0) 08/03/16 06:25 BUN 24 mg/dL (7-25) 08/03/16 06:25 Creatinine 0.8 mg/dL (0.7-1.3) 08/03/16 06:25 Est GFR ( Amer) > 60.0 ml/min (>90) 08/03/16 06:25 Est GFR (Non-Af Amer) > 60.0 ml/min 08/03/16 06:25 BUN/Creatinine Ratio 30.0 08/03/16 06:25 Glucose 83 mg/dL (70-105) 08/03/16 06:25 POC Glucose 245 MG/DL (70 - 105) H 08/03/16 20:39 Hemoglobin A1c % 13.8 % (4.0-6.0) H 07/30/16 16:02 Uric Acid 6.1 mg/dL (4.4-7.6) 08/01/16 06:25 Calcium 9.8 mg/dL (8.6-10.3) 08/03/16 06:25 Phosphorus 3.8 mg/dL (2.5-5.0) 08/01/16 06:25 Magnesium 1.8 mg/dL (1.9-2.7) L 08/01/16 06:25 Total Bilirubin 0.3 mg/dL (0.3-1.0) 08/01/16 06:25 AST 42 U/L (13-39) H 08/01/16 06:25 ALT 25 U/L (7-52) 08/01/16 06:25 Alkaline Phosphatase 251 U/L (34-104) H 08/01/16 06:25 Ammonia 59 umol/L (16-53) H 07/30/16 16:02 Troponin I 0.07 ng/mL (0.01-0.05) H* D 07/30/16 16:02 B-Natriuretic Peptide 3700.0 pg/mL (5.0-100.0) H 08/02/16 05:45 Total Protein 6.5 gm/dL (6.0-8.3) 08/01/16 06:25 Albumin 2.4 gm/dL (4.2-5.5) L 08/01/16 06:25 Globulin 4.1 gm/dL 08/01/16 06:25 Albumin/Globulin Ratio 0.6 (1.0-1.8) L 08/01/16 06:25 Triglycerides 191 mg/dL (<150) H 07/30/16 16:02 Cholesterol 195 mg/dL (<200) 07/30/16 16:02 LDL Cholesterol Direct 115 mg/dL (75-193) 07/30/16 16:02 HDL Cholesterol 55 mg/dL (23-92) 07/30/16 16:02 TSH 3.35 uIU/ml (0.34-5.60) 07/30/16 16:02 Urine Source CLEAN C 07/30/16 16:50 Urine Color YELLOW 07/30/16 16:50 Urine Clarity CLEAR (CLEAR) 07/30/16 16:50 Urine pH 6.0 07/30/16 16:50 Ur Specific [place] 1.015 (1.005-1.030) 07/30/16 16:50 Urine Protein >300 mg/dL (NEGATIVE) H 07/30/16 16:50 Urine Glucose (UA) 500 mg/dL (NEGATIVE) H 07/30/16 16:50 Urine Ketones NEGATIVE mg/dL (NEGATIVE) 07/30/16 16:50 Urine Blood MODERATE (NEGATIVE) H 07/30/16 16:50 Urine Nitrate NEGATIVE (NEGATIVE) 07/30/16 16:50 Urine Bilirubin NEGATIVE (NEGATIVE) 07/30/16 16:50 Urine Urobilinogen 1.0 E.U./dL (0.2 - 1.0) 07/30/16 16:50 Ur Leukocyte Esterase NEGATIVE (NEGATIVE) 07/30/16 16:50 Urine RBC 5-10 /hpf (0-5) H 07/30/16 16:50 Urine WBC 0-2 /hpf (0-5) 07/30/16 16:50 Ur Epithelial Cells FEW /lpf (FEW) 07/30/16 16:50 Urine Bacteria FEW /hpf (NONE SEEN) 07/30/16 16:50 Urine Yeast FEW /hpf (NONE SEEN) H 07/30/16 16:50 Urine Opiates Screen NEGATIVE (NEGATIVE) 07/30/16 16:50 Urine Methadone Screen NEGATIVE (NEGATIVE) 07/30/16 16:50 Ur Barbiturates Screen NEGATIVE (NEGATIVE) 07/30/16 16:50 Ur Tricyclics Screen NEGATIVE (NEGATIVE) 07/30/16 16:50 Ur Phencyclidine Scrn NEGATIVE (NEGATIVE) 07/30/16 16:50 Amphetamines Screen NEGATIVE (NEGATIVE) 07/30/16 16:50 U Methamphetamines Scrn NEGATIVE (NEGATIVE) 07/30/16 16:50 U Benzodiazepines Scrn NEGATIVE (NEGATIVE) 07/30/16 16:50 U Cocaine Metab Screen NEGATIVE (NEGATIVE) 07/30/16 16:50 U Cannabinoids Screen NEGATIVE (NEGATIVE) 07/30/16 16:50 Ethyl Alcohol 21 mg/dL (0-10) H 07/30/16 16:02 RPR NONREACTIVE (NONREACTIVE) 07/30/16 16:02 - Physical Exam Vitals and I&O: Vital Signs Temp 98.5 F 08/03/16 20:00 Pulse 100 08/03/16 20:00 Resp 20 08/03/16 20:00 BP 115/64 08/03/16 20:00 Pulse Ox 93 08/03/16 20:00 Intake & Output 08/03/16 08/03/16 08/04/16 06:59 18:59 06:59 Intake Total 150 50 Balance 150 50 Weight (lbs) 63.503 kg 63.503 kg 63.503 kg Intake: Intake, IV Amount 50 cefTRIAXone 1 gm In 50 Sodium Chloride 0.9% 50 ml @ 100 mls/hr IV Q24HR [facility] Rx#:[id number] Oral 150 Other: # Voids 3 Stool Characteristics Formed Active Medications: Current Medications Acetaminophen/Hydrocodone Bitart ([place] 10 Mg/325 Mg) 1 tab PO Q6H PRN PRN Reason: Pain (Severe) Stop: 09/28/16 21:18 Last Admin: 08/02/16 21:49 Dose: 1 tab Albuterol Sulfate (Albuterol 2.5mg/3ml Neb Ud) 2.5 mg HHN Q4H PRN PRN Reason: Shortness of Breath or Wheeze Stop: 09/28/16 19:59 Last Admin: 07/31/16 18:48 Dose: 2.5 mg Atorvastatin Calcium (Lipitor) 40 mg PO DAILY [facility] PRN Reason: Protocol Stop: 09/29/16 08:59 Last Admin: 08/03/16 08:20 Dose: 40 mg Carvedilol (Coreg) 3.125 mg PO BID [facility] Stop: 10/01/16 16:59 Last Admin: 08/03/16 17:48 Dose: 3.125 mg Furosemide (Lasix) 40 mg IVP BID [facility] Stop: 09/28/16 20:14 Last Admin: 08/03/16 17:48 Dose: 40 mg Ceftriaxone Sodium 1 gm/ (Sodium Chloride) 50 mls @ 100 mls/hr IV Q24HR [facility] Stop: 09/29/16 10:59 Last Infusion: 08/03/16 12:50 Dose: Infused Insulin Aspart (Novolog Insulin Sliding Scale) 0 units SUBQ ACHS [facility] PRN Reason: Protocol Stop: 09/28/16 20:59 Last Admin: 08/03/16 21:10 Dose: 4 units Insulin Detemir (Levemir Insulin) 15 units SUBQ HS [facility] PRN Reason: Protocol Stop: 09/28/16 20:59 Last Admin: 08/03/16 21:10 Dose: 15 units Ketorolac Tromethamine (Toradol) 30 mg IVP Q6HR PRN PRN Reason: Pain (Moderate) Stop: 09/28/16 19:52 Last Admin: 07/31/16 10:38 Dose: 30 mg Lisinopril (Zestril) 20 mg PO DAILY [facility] Stop: 10/01/16 08:59 Last Admin: 08/03/16 08:24 Dose: 20 mg Magnesium Chloride (Slow-Mag) 1 ect PO DAILY [facility] Stop: 10/01/16 08:59 Last Admin: 08/03/16 08:25 Dose: 1 ect Mupirocin (Bactroban Oint) 1 appl TP BID [facility] Stop: 08/06/16 08:59 Last Admin: 08/03/16 17:46 Dose: 1 appl Cardiovascular: Regular rate Lungs: Other (rales better) - Procedures Procedures: Procedures Procedure Code Date JUAN DIEGO BONE 20 SQ CM/< 06534 02/11/15 EXCISION OF RIGHT RADIUS, OPEN APPROACH [id number] 02/11/15 Assessment/Plan - Problem List Patient Problems: All Active Problems Arm pain (Acute) COUGH WITH CONGESTION AND FACIAL LESIONS (Acute) - Assessment Assessment: Acute/chronic systolic heart failure CHF exacerbation DM with hyperglycemia HTN Microscopic hematuria Leucocytosis Better ? Reactive Hyperlipidemia Non Compliance Hyponatremia better Bradycardia - Plan Plan: Reduce Coreg dose due to bradycardia Continue Agreesive Diuresis Lisinopril Statin Rocephine Diabetic diet Lantus Accucheck Outpt Treatment compliance highly advised Follow up labs and chest xray in am Nutritional Asmnt/Malnutr-PDOC - Dietary Evaluation Malnutrition Findings (Please click <Entered> for more info): Nutritional Asmnt/Malnutrition Start: 07/31/16 10: 31 Text: Status: Complete Freq: Document 07/31/16 10:32 ALLYSON (Rec: 07/31/16 10:39 ALLYSON CABALLERO- [email or web address]) Nutritional Asmnt/Malnutrition Patient General Information Nutritional Screening High Risk Screening Diagnosis CHF Exacerbation Pertinent Medical Hx/Surgical Hx DM, HTN, CHF, asthma, COPD, dyslipdemia Subjective Information Pt sitting up in bed reports having DM for "a long time" and that he checks his blood sugar once a day in the evening. Pt could not give a range of what his blood sugar usually runs but states that he takes 20units every night. Went over low blood sugar signs and symtoms and rule of 15 and Pt stated he already knew. Current Diet Order/ Nutrition Support Low sodium Patient / S.O Not Indicated Pertinent Medications lasix, lipitor, insulin Pertinent Labs 07/31/16: Na 132, K 2.7, Cl 100 , CO2 24.6, BUN 16, Cr 0.8, Ca 9.2, glucose 394 on admission and then POc glucose 36 Nutritional Hx/Data Height 1.7 m Height (Calculated Centimeters) 170.2 Current Weight (lbs) 64.41 kg Weight (Calculated Kilograms) 64.4 Weight (Calculated Grams) 41541.1 Recent Weight Change No Weight Status Approriate GI Symptoms GI Symptoms None Food Allergies No Cultural/Ethnic/Islam Belief Pt denies Usual diet at home Pt admits he drinks alcohol and does not always eat 3 meals a day Skin Integrity/Comment: lorie score 16, R/L LE 4+ edema Current %PO Good (75-100%) Estimated Nutritional Goals BEE in Kcals: Using Current wt Calories/Kcals/Kg 25-30kcals/kg Kcals Calculated 1600-1920kcals/day Protein: Using Current wt Protein g/k.2-1.5 Protein Calculated 77-96g/day Fluid: ml per MD Nutritional Problem 1. Problem Problem Altered nutrition related lab values Etiology related to endocrine dysfunction as evidenced by Signs/Symptoms: POC glucose 36, glucsoe 394. Intervention/Recommendation Comments Recommend CCHO 2g Na diet. Expected Outcomes/Goals Expected Outcomes/Goals PO intake >75% of meals.
[2016-08-03] MEDS: Hydrocodone/APAP 10 mg/325 mg Tab PO PRN (23:51)
[2016-08-04] MEDS: INSULIN ASPART SLIDING SCALE 100 UNITS/ML UNIT SUBQ SCH ×2 (06:51→11:29)
[2016-08-04 08:49] LABS: ANION GAP 9.8 (7.0-16.0); BUN - UREA NITROGEN 34 mg/dL (7-25); CALCIUM SERUM 9.3 mg/dL (8.6-10.3); CARBON DIOXIDE 28.5 mEq/L (21.0-31.0); CHLORIDE 96 mEq/L (98-107); GLUCOSE 204 mg/dL (70-105); POTASSIUM SERUM 4.3 mEq/L (3.5-5.1); SODIUM SERUM 130 mEq/L (136-145)
[2016-08-04] MEDS: Atorvastatin Calcium 10 MG TAB PO SCH (09:39)
[2016-08-04] MEDS: Magnesium Chloride EC 64mg Tab PO SCH (09:39)
[2016-08-04] MEDS: Hydrocodone/APAP 10 mg/325 mg Tab PO PRN (10:02)
--- NOTE | 2016-08-04 10:41 | Diagnostic Imaging Report ---
CHEST X-RAY: AP view INDICATION: CHF COMPARISON: Chest x-ray 07/31/2016 FINDINGS: Mild chronic lung changes are noted. No evidence of chris CHF. No focal consolidation or effusions. Mild cardiomegaly is noted. IMPRESSION: No evidence of chris CHF. Mild cardiomegaly.
[2016-08-04] MEDS: cefTRIAXone 1 GM in Sodium Chloride 0.9% 50 ML IV SCH (11:04)
--- NOTE | 2016-08-04 12:33 | General Progress Note ---
Subjective - Review of Systems Service Date: 08/04/16 Subjective: Patient seen and examined feels better denied chest pain or sob or any other complaints eating lunch Objective - Results Result Diagrams: 08/01/16 06:25 08/04/16 06:06 Recent Labs: Laboratory Last Values WBC 12.2 Th/cmm (4.8-10.8) H D 08/01/16 06:25 RBC 4.79 Mil/cmm (4.30-5.70) 08/01/16 06:25 Hgb 14.2 gm/dL (13.2-17.3) 08/01/16 06:25 Hct 43.5 % (39.0-49.0) 08/01/16 06:25 MCV 90.7 fl (80-99) 08/01/16 06:25 MCH 29.6 pg (26.0-30.0) 08/01/16 06:25 MCHC Differential 32.6 pg (28.0-36.0) 08/01/16 06:25 RDW 14.9 % (11.5-20.0) 08/01/16 06:25 Plt Count 367 Th/cmm (150-400) 08/01/16 06:25 MPV 9.0 fl 08/01/16 06:25 Neutrophils % 73.0 % (40.0-80.0) 08/01/16 06:25 Lymphocytes % 14.4 % (20.0-50.0) L 08/01/16 06:25 Monocytes % 4.6 % (2.0-10.0) 08/01/16 06:25 Eosinophils % 5.2 % (0.0-5.0) H 08/01/16 06:25 Basophils % 2.8 % (0.0-2.0) H 08/01/16 06:25 PT 10.6 SECONDS (9.5-11.5) 07/30/16 16:02 INR 1.02 (0.5-1.4) 07/30/16 16:02 PTT (Actin FS) 23.9 SECONDS (26.0-38.0) L 07/30/16 16:02 Sodium 130 mEq/L (136-145) L 08/04/16 06:06 Potassium 4.3 mEq/L (3.5-5.1) 08/04/16 06:06 Chloride 96 mEq/L (98-107) L 08/04/16 06:06 Carbon Dioxide 28.5 mEq/L (21.0-31.0) 08/04/16 06:06 Anion Gap 9.8 (7.0-16.0) 08/04/16 06:06 BUN 34 mg/dL (7-25) H 08/04/16 06:06 Creatinine 1.0 mg/dL (0.7-1.3) 08/04/16 06:06 Est GFR ( Amer) > 60.0 ml/min (>90) 08/04/16 06:06 Est GFR (Non-Af Amer) > 60.0 ml/min 08/04/16 06:06 BUN/Creatinine Ratio 34.0 08/04/16 06:06 Glucose 204 mg/dL (70-105) H 08/04/16 06:06 POC Glucose 234 MG/DL (70 - 105) H 08/04/16 11:15 Hemoglobin A1c % 13.8 % (4.0-6.0) H 07/30/16 16:02 Uric Acid 6.1 mg/dL (4.4-7.6) 08/01/16 06:25 Calcium 9.3 mg/dL (8.6-10.3) 08/04/16 06:06 Phosphorus 3.8 mg/dL (2.5-5.0) 08/01/16 06:25 Magnesium 1.8 mg/dL (1.9-2.7) L 08/01/16 06:25 Total Bilirubin 0.3 mg/dL (0.3-1.0) 08/01/16 06:25 AST 42 U/L (13-39) H 08/01/16 06:25 ALT 25 U/L (7-52) 08/01/16 06:25 Alkaline Phosphatase 251 U/L (34-104) H 08/01/16 06:25 Ammonia 59 umol/L (16-53) H 07/30/16 16:02 Troponin I 0.07 ng/mL (0.01-0.05) H* D 07/30/16 16:02 B-Natriuretic Peptide 4600.0 pg/mL (5.0-100.0) H 08/04/16 06:06 Total Protein 6.5 gm/dL (6.0-8.3) 08/01/16 06:25 Albumin 2.4 gm/dL (4.2-5.5) L 08/01/16 06:25 Globulin 4.1 gm/dL 08/01/16 06:25 Albumin/Globulin Ratio 0.6 (1.0-1.8) L 08/01/16 06:25 Triglycerides 191 mg/dL (<150) H 07/30/16 16:02 Cholesterol 195 mg/dL (<200) 07/30/16 16:02 LDL Cholesterol Direct 115 mg/dL (75-193) 07/30/16 16:02 HDL Cholesterol 55 mg/dL (23-92) 07/30/16 16:02 TSH 3.35 uIU/ml (0.34-5.60) 07/30/16 16:02 Urine Source CLEAN C 07/30/16 16:50 Urine Color YELLOW 07/30/16 16:50 Urine Clarity CLEAR (CLEAR) 07/30/16 16:50 Urine pH 6.0 07/30/16 16:50 Ur Specific [place] 1.015 (1.005-1.030) 07/30/16 16:50 Urine Protein >300 mg/dL (NEGATIVE) H 07/30/16 16:50 Urine Glucose (UA) 500 mg/dL (NEGATIVE) H 07/30/16 16:50 Urine Ketones NEGATIVE mg/dL (NEGATIVE) 07/30/16 16:50 Urine Blood MODERATE (NEGATIVE) H 07/30/16 16:50 Urine Nitrate NEGATIVE (NEGATIVE) 07/30/16 16:50 Urine Bilirubin NEGATIVE (NEGATIVE) 07/30/16 16:50 Urine Urobilinogen 1.0 E.U./dL (0.2 - 1.0) 07/30/16 16:50 Ur Leukocyte Esterase NEGATIVE (NEGATIVE) 07/30/16 16:50 Urine RBC 5-10 /hpf (0-5) H 07/30/16 16:50 Urine WBC 0-2 /hpf (0-5) 07/30/16 16:50 Ur Epithelial Cells FEW /lpf (FEW) 07/30/16 16:50 Urine Bacteria FEW /hpf (NONE SEEN) 07/30/16 16:50 Urine Yeast FEW /hpf (NONE SEEN) H 07/30/16 16:50 Urine Opiates Screen NEGATIVE (NEGATIVE) 07/30/16 16:50 Urine Methadone Screen NEGATIVE (NEGATIVE) 07/30/16 16:50 Ur Barbiturates Screen NEGATIVE (NEGATIVE) 07/30/16 16:50 Ur Tricyclics Screen NEGATIVE (NEGATIVE) 07/30/16 16:50 Ur Phencyclidine Scrn NEGATIVE (NEGATIVE) 07/30/16 16:50 Amphetamines Screen NEGATIVE (NEGATIVE) 07/30/16 16:50 U Methamphetamines Scrn NEGATIVE (NEGATIVE) 07/30/16 16:50 U Benzodiazepines Scrn NEGATIVE (NEGATIVE) 07/30/16 16:50 U Cocaine Metab Screen NEGATIVE (NEGATIVE) 07/30/16 16:50 U Cannabinoids Screen NEGATIVE (NEGATIVE) 07/30/16 16:50 Ethyl Alcohol 21 mg/dL (0-10) H 07/30/16 16:02 RPR NONREACTIVE (NONREACTIVE) 07/30/16 16:02 - Physical Exam Vitals and I&O: Vital Signs Temp 96.9 F 08/04/16 12:00 Pulse 89 08/04/16 12:00 Resp 20 08/04/16 12:00 BP 116/82 08/04/16 12:00 Pulse Ox 98 08/04/16 12:00 Intake & Output 08/03/16 08/04/16 08/04/16 18:59 06:59 18:59 Intake Total 50 350 Balance 50 350 Weight (lbs) 63.503 kg 63.503 kg Intake: Intake, IV Amount 50 [id number] 1 gm In 50 Sodium Chloride 0.9% 50 ml @ 100 mls/hr IV Q24HR [facility] Rx#:[id number] Oral 350 Other: # Voids 3 Stool Characteristics Formed Active Medications: Current Medications Acetaminophen/Hydrocodone Bitart ([place] 10 Mg/325 Mg) 1 tab PO Q6H PRN PRN Reason: Pain (Severe) Stop: 09/28/16 21:18 Last Admin: 08/04/16 10:02 Dose: 1 tab Albuterol Sulfate (Albuterol 2.5mg/3ml Neb Ud) 2.5 mg HHN Q4H PRN PRN Reason: Shortness of Breath or Wheeze Stop: 09/28/16 19:59 Last Admin: 07/31/16 18:48 Dose: 2.5 mg Atorvastatin Calcium (Lipitor) 40 mg PO DAILY [facility] Stop: 10/04/16 08:59 Carvedilol (Coreg) 3.125 mg PO BID [facility] Stop: 10/03/16 16:59 Furosemide (Lasix) 40 mg IVP BID [facility] Stop: 09/28/16 20:14 Last Admin: 08/04/16 09:38 Dose: 40 mg Ceftriaxone Sodium 1 gm/ (Sodium Chloride) 50 mls @ 100 mls/hr IV Q24HR [facility] Stop: 09/29/16 10:59 Last Admin: 08/04/16 11:04 Dose: 100 mls/hr Insulin Aspart (Novolog Insulin Sliding Scale) 0 units SUBQ ACHS MARIO PRN Reason: Protocol Stop: 09/28/16 20:59 Last Admin: 08/04/16 11:29 Dose: 4 units Insulin Detemir (Levemir Insulin) 15 units SUBQ HS MARIO PRN Reason: Protocol Stop: 09/28/16 20:59 Last Admin: 08/03/16 21:10 Dose: 15 units Ketorolac Tromethamine (Toradol) 30 mg IVP Q6HR PRN PRN Reason: Pain (Moderate) Stop: 09/28/16 19:52 Last Admin: 07/31/16 10:38 Dose: 30 mg Lisinopril (Zestril) 20 mg PO DAILY [facility] Stop: 10/01/16 08:59 Last Admin: 08/04/16 09:40 Dose: 20 mg Magnesium Chloride (Slow-Mag) 1 ect PO DAILY [facility] Stop: 10/01/16 08:59 Last Admin: 08/04/16 09:39 Dose: 1 ect Metolazone (Zaroxolyn) 5 mg PO BID [facility] Stop: 10/03/16 16:59 Mupirocin (Bactroban Oint) 1 appl TP BID [facility] Stop: 08/06/16 08:59 Last Admin: 08/04/16 09:41 Dose: 1 appl Cardiovascular: Regular rate Lungs: Clear to auscultation - Procedures Procedures: Procedures Procedure Code Date JUAN DIEGO BONE 20 SQ CM/< 32199 02/11/15 EXCISION OF RIGHT RADIUS, OPEN APPROACH [id number] 02/11/15 Assessment/Plan - Problem List Patient Problems: All Active Problems Arm pain (Acute) COUGH WITH CONGESTION AND FACIAL LESIONS (Acute) - Assessment Assessment: Acute/chronic systolic heart failure better CHF exacerbation better DM with hyperglycemia better HTN Microscopic hematuria Leucocytosis Better ? Reactive Hyperlipidemia Non Compliance Hyponatremia better Bradycardia - Plan Plan: DC home today Highly advised for medication compliance Highly advised to follow up with PCP and specialist Scripts given Nutritional Asmnt/Malnutr-PDOC - Dietary Evaluation Malnutrition Findings (Please click <Entered> for more info): Nutritional Asmnt/Malnutrition Start: 07/31/16 10: 31 Text: Status: Complete Freq: Document 07/31/16 10:32 ALLYSON (Rec: 07/31/16 10:39 ALLYSON CABALLERO- [email or web address]) Nutritional Asmnt/Malnutrition Patient General Information Nutritional Screening High Risk Screening Diagnosis CHF Exacerbation Pertinent Medical Hx/Surgical Hx DM, HTN, CHF, asthma, COPD, dyslipdemia Subjective Information Pt sitting up in bed reports having DM for "a long time" and that he checks his blood sugar once a day in the evening. Pt could not give a range of what his blood sugar usually runs but states that he takes 20units every night. Went over low blood sugar signs and symtoms and rule of 15 and Pt stated he already knew. Current Diet Order/ Nutrition Support Low sodium Patient / S.O Not Indicated Pertinent Medications lasix, lipitor, insulin Pertinent Labs 07/31/16: Na 132, K 2.7, Cl 100 , CO2 24.6, BUN 16, Cr 0.8, Ca 9.2, glucose 394 on admission and then POc glucose 36 Nutritional Hx/Data Height 1.7 m Height (Calculated Centimeters) 170.2 Current Weight (lbs) 64.41 kg Weight (Calculated Kilograms) 64.4 Weight (Calculated Grams) 09059.1 Recent Weight Change No Weight Status Approriate GI Symptoms GI Symptoms None Food Allergies No Cultural/Ethnic/Oriental Orthodox Belief Pt denies Usual diet at home Pt admits he drinks alcohol and does not always eat 3 meals a day Skin Integrity/Comment: lorie score 16, R/L LE 4+ edema Current %PO Good (75-100%) Estimated Nutritional Goals BEE in Kcals: Using Current wt Calories/Kcals/Kg 25-30kcals/kg Kcals Calculated 1600-1920kcals/day Protein: Using Current wt Protein g/k.2-1.5 Protein Calculated 77-96g/day Fluid: ml per MD Nutritional Problem 1. Problem Problem Altered nutrition related lab values Etiology related to endocrine dysfunction as evidenced by Signs/Symptoms: POC glucose 36, glucsoe 394. Intervention/Recommendation Comments Recommend CCHO 2g Na diet. Expected Outcomes/Goals Expected Outcomes/Goals PO intake >75% of meals.
== END 2016-08-04 15:15 | disposition home or self-care (01) | DRG 291 ==
LOC: ER 15:25 → TELE 20:00
PROVIDERS: ADMIT Family Medicine; ATTEND Family Medicine
DX: I13.0 Hypertensive heart and chronic kidney disease with heart failure and stage 1 through stage 4 chronic kidney disease, or unspecified chronic kidney disease (principal); I50.43 Acute on chronic combined systolic (congestive) and diastolic (congestive) heart failure; E87.2 Acidosis; E11.22 Type 2 diabetes mellitus with diabetic chronic kidney disease; K70.31 Alcoholic cirrhosis of liver with ascites; E87.1 Hypo-osmolality and hyponatremia; J44.1 Chronic obstructive pulmonary disease with (acute) exacerbation; E11.65 Type 2 diabetes mellitus with hyperglycemia; E78.5 Hyperlipidemia, unspecified; N18.2 Chronic kidney disease, stage 2 (mild); E87.6 Hypokalemia; F17.210 Nicotine dependence, cigarettes, uncomplicated; R80.9 Proteinuria, unspecified; R31.29 Other microscopic hematuria; L30.9 Dermatitis, unspecified; R00.1 Bradycardia, unspecified; F32.9 Major depressive disorder, single episode, unspecified; F19.90 Other psychoactive substance use, unspecified, uncomplicated; F10.21 Alcohol dependence, in remission; J45.909 Unspecified asthma, uncomplicated; D72.829 Elevated white blood cell count, unspecified; Z91.19 Patient's noncompliance with other medical treatment and regimen; Z83.3 Family history of diabetes mellitus; Z68.21 Body mass index [BMI] 21.0-21.9, adult
CPT/HCPCS: 36415-UA; 71010-TC; 76770-TC; 80048-TC; 80053-TC; 80061-TC; 80307; 80320-TC; 81001-TC; 82140-TC; 82948-90; 83036-90; 83735-TC; 83880-TC; 84100-TC; 84443-TC; 84484-TC; 84550-TC; 85025-TC; 85610-TC; 85730-TC; 86592-TC; 87086-90; 93005; 94640; 94760; 96374; J0696; J1815; J1885; J1940; J3480; J7030; J7613

== ENCOUNTER 2016-11-09 13:06 | Emergency (ER) | payer MEDICARE, MEDICAID ==
--- NOTE | 2016-11-09 13:16 | ED Physician Chart ---
ED Chief Complaint/HPI - Patient Information Date Seen:: 11/09/16 Time Seen:: 13:05 Chief Complaint:: Palpitations History of Present Illness:: onset x one day of palpitations, fatigue, weakness, dizziness; pt denies C/P, SOB, Abd. Pain, A/N/V/D/C, fever, cough, chills, neck pain, H/As, or urinary s/s Allergies:: Allergies Allergy/AdvReac Type Severity Reaction Status Date / Time No Known Allergies Allergy Verified 05/25/16 21:32 Historian:: Patient Review:: Nurse's Note Reviewed ED Review of Systems - Review of Systems General/Constitutional: No fever, No chills, No weight loss, Weakness, No diaphoresis, No edema, No loss of appetite Skin: No skin lesions, No rash, No bruising Head: No headache, No light-headedness Eyes: No loss of vision, No pain, No diplopia ENT: No earache, No nasal drainage, No sore throat, No tinnitus Neck: No neck pain, No swelling, No thyromegaly, No stiffness, No mass noted Cardio Vascular: No chest pain, Palpitations, No PND, No orthopnea, No edema Pulmonary: No SOB, No cough, No sputum, No wheezing GI: No nausea, No vomiting, No diarrhea, No pain, No melena, No hematochezia, No constipation, No hematemesis G/U: No dysuria, No frequency, No hematuria Musculoskeletal: No bone or joint pain, No back pain, No muscle pain Endocrine: No polyuria, No polydipsia Psychiatric: No prior psych history, No depression, No anxiety, No suicidal ideation Hematopoietic: No bruising, No lymphadenopathy Allergic/Immuno: No urticaria, No angioedema Neurological: No syncope, No focal symptoms, Weakness, No paresthesia, No headache, No seizure, Dizziness, No confusion, Vertigo ED Past Medical History - Past Medical History Obtainable: Yes Past Medical History: HTN, DM, CAD, Dyslipidemia, Arthritis Family History: Heart disease, Diabetes Melitus, HTN Social History: Smoker, Alcohol, No Drug Use, Single Surgical History: CABG Psychiatricy History: None Medication: Reviewed Family Medical History - Family Member Father History Unknown: Yes Ethnicity: Living Status: Hx Family Cancer: No Hx Family Coronary Artery Disease: No Hx Family Congestive Heart Failure: No Hx Family Hypertension: No Hx Family Stroke: No Hx Family Diabetes: Yes Hx Family Seizures: No Hx Family Dementia: No Hx Family AIDS: No Hx Family HIV: No Hx Family COPD: No Hx Family Hepatitis: No Hx Family Psychiatric Problems: No Hx Family Tuberculosis: No ED Physical Exam - Physical Examination General/Constitutional: Awake, Well-developed, well-nourished, Alert, No distress, GCS 15, Non-toxic appearing, Ambulatory Head: Atraumatic Eyes: Lids, conjuctiva normal, PERRL, EOMI Skin: Nl inspection, No rash, No skin lesions, No ecchymosis, Well hydrated, No lymphadenopathy ENMT: External ears, nose nl, Nasal exam nl, Lips, teeth, gums nl Neck: Nontender, Full ROM w/o pain, No JVD, No nuchal rigidity, No bruit, No mass, No stridor Respiratory: Nl effort/Exclusion Other Respiratory comments:: Lungs: + Rales Cardio Vascular: No murmur, gallop, rubs, NL S1 S2, Carotid/Femoral/Distal pulses equal bilaterally Other Cardio Vascular comments:: Irregular Irregular Rhythm GI: No tenderness/rebounding/guarding, No organomegaly, No hernia, Normal BS's, Nondistended, No mass/bruits, No McBurney tenderness : No CVA tenderness Extremities: No tenderness or effusion, Full ROM, normal strength in all extremities, No edema, Normal digits & nails Neuro/Psych: Alert/oriented, DTR's symmetric, Normal sensory exam, Normal motor strength, Judgement/insight normal, Mood normal, Normal gait, No focal deficits Misc: Normal back, No paraspinal tenderness ED Labs/Radiology/EKG Results - Lab Results Comments:: Na+: 129; Glucose: 287; Alk, Phosph: 421; BNP: 4300; D-Dimer: 2580 - Radiology Results Results: CXR: CHF; CM - EKG Interpretations EKG Time:: 13:13 Rate & Rhythm: 126; ST/ PAT Comments:: non-specific st-t changes ED Septic Shock - . Is Septic Shock (SBP<90, OR Lactate>4 mmol\L) present?: No ED Reassessment (Disposition) - Reassessment Reassessment Condition:: Improved - Diagnosis Diagnosis:: Dx: Atrial Tachycardia/Fibrillation; ST; Palpitations; CHF; Wound Infection; Anemia; Hyperglycemia; DM; Hyponatremia; R/O PE; Hypertension; Diabetes Mellitus ; Wound Infection - Aftercare/Follow up Instructions Aftercare/Follow-Up Instructions:: Counseled pt regarding lab results/diagnosis & need follow up, Refer to Discharge Instructions, Counseled pt & family regarding lab results/diagnosis & need follow up - Patient Disposition Discharge/Transfer:: Against Medical Advice Accepting Physician:: Dr. Hernandes Time Called:: [id number] Time Responded:: 14:53 Admitted to:: ICU Spoke to:: Dr. Hernandes Admitting Medical Physician:: Dr. Hernandes Condition at Disposition:: Stable, Improved (RTER prn if existing s/s reoccur and/or get worse and/or any other new s/s occur; X-Rays Instructions; ACIs given for all above Dx; Refer to State Epidemiologist/Rn Camp/Online Banking Specialist MADELYN; F/U with PMD today or prn; RTER prn if concerned)
[2016-11-09] MEDS ORDERED: Sodium Chloride 0.9% 1,000 ML IV ONE (13:23)
[2016-11-09 13:44] LABS: % EOSINOPHILS 5.6 % (0.0-5.0); % LYMPHOCYTES 17.3 % (20.0-50.0); % MONOCYTES 5.1 % (2.0-10.0); MEAN CELL VOLUME 85.6 fl (80-99); MEAN CORPUSCULAR HEMOGLOBIN 27.6 pg (26.0-30.0); MEAN CORPUSCULAR HGB CONC 32.3 pg (28.0-36.0); MEAN PLATELET VOLUME 8.3 fl; NEUTROPHILE ABSOLUTE 7.3 Th/cmm (1.8-8.0); RED BLOOD COUNT 4.15 Mil/cmm (4.30-5.70); RED CELL DISTRIBUTION WIDTH 16.6 % (11.5-20.0); WHITE BLOOD COUNT 10.2 Th/cmm (4.8-10.8)
[2016-11-09 13:45] LABS: HEMATOCRIT 35.5 % (41.0-60); HEMOGLOBIN 11.5 gm/dL (12-16); PLATELET COUNT 484 Th/cmm (150-400)
[2016-11-09 13:57] LABS: INR 1.12 (0.5-1.4); PROTHROMBIN TIME (TEST) 11.8 SECONDS (9.5-11.5)
[2016-11-09 14:04] LABS: ALB/GLOB RATIO 0.7 (1.0-1.8); ALKALINE PHOSPHATASE 421 U/L (34-104); ANION GAP 10.7 (7.0-16.0); BILIRUBIN,TOTAL 0.9 mg/dL (0.3-1.0); BUN - UREA NITROGEN 16 mg/dL (7-25); BUN/CREATININE RATIO 22.9; CARBON DIOXIDE 21.1 mEq/L (21.0-31.0); CHLORIDE 101 mEq/L (98-107); CHOLESTEROL 169 mg/dL (<200); CREATININE - SERUM 0.7 mg/dL (0.7-1.3); GLUCOSE 287 mg/dL (70-105); POTASSIUM SERUM 3.8 mEq/L (3.5-5.1); SGOT 36 U/L (13-39); SGPT/ALT 32 U/L (7-52); SODIUM SERUM 129 mEq/L (136-145); TRIGLYCERIDES 126 mg/dL (<150)
[2016-11-09] MEDS ORDERED: cefTRIAXone 1 GM in Sodium Chloride 0.9% 50 ML IV ONE (14:32)
--- NOTE | 2016-11-09 14:40 | Diagnostic Imaging Report ---
CHEST X-RAY: AP view INDICATION: pain COMPARISON: 08/04/2016 FINDINGS: There has been interval median sternotomy. Hazy infiltrates are seen with small effusions. Cardiomegaly is noted. Degenerative Changes of the spine are noted. There is evidence of old left AC joint separation. IMPRESSION: Hazy infiltrates and small bilateral effusions. Findings may be due to a mild degree of CHF. Underlying pneumonia cannot be excluded. Status post median sternotomy. Cardiomegaly.
[2016-11-09] MEDS ORDERED: NITROGLYCERIN OINT 2% 1 INCH PACKET TP STA (14:45)
--- NOTE | 2016-11-09 15:13 | Diagnostic Imaging Report ---
CT chest without IV contrast HISTORY: Shortness of breath COMPARISON: CT chest angiogram on 05/26/2016 . Technique: Axial images were obtained from the base of the neck to the upper abdomen without administration of IV contrast. Reconstructions were made. Total DLP to 31 CTD 5.6 Findings: There is evidence of prior median sternotomy. Cardiomegaly is noted with diffuse atherosclerotic vascular disease. A moderate-sized pericardial effusion is noted. Note assessment of the mediastinum is limited due to lack of IV contrast. Nonenlarged mediastinal lymph nodes are noted. Borderline prominent axillary lymph nodes are also noted. Small bilateral effusions are seen with bibasal consolidative changes. Hypoventilatory and atelectatic lung changes are also noted with bibasal groundglass infiltrates also noted. The upper abdomen demonstrates partially visualized ascites. Atherosclerosis is noted. The osseous structures demonstrate no acute abnormalities. IMPRESSION: Nondiagnostic exam for pulmonary embolus as IV contrast was not administered. Dedicated CT PE study or nuclear medicine VQ scan may be obtained for further assessment if indicated. Small bilateral pleural effusions and bibasal consolidative changes and bibasal groundglass infiltrates. Findings may be due to mild CHF. Pneumonia of the lung bases cannot be excluded Evidence of prior median sternotomy. Cardiomegaly, atherosclerosis with moderate sized pericardial effusion Partially visualized ascites.
== END 2016-11-09 15:23 | disposition left against medical advice (07) ==
LOC: ER 13:06
DX: I50.9 Heart failure, unspecified (principal); D64.9 Anemia, unspecified; E11.65 Type 2 diabetes mellitus with hyperglycemia; I10 Essential (primary) hypertension; E87.1 Hypo-osmolality and hyponatremia; T81.4XXA Infection following a procedure, initial encounter; X58.XXXA Exposure to other specified factors, initial encounter; Y93.89 Activity, other specified; Y92.89 Other specified places as the place of occurrence of the external cause; Y99.8 Other external cause status; E78.5 Hyperlipidemia, unspecified
CPT/HCPCS: 99285; 96360; 96361; 94760; 93005; 71010; 71250; 84484; 83880; 36415; 36416; 85379; 82948; 85025; 85610; 82550; 83036; 80053; 80061; Z7610; J7030

== ENCOUNTER 2017-07-21 13:25 | Emergency (ER) | payer OTHER, MEDICAID ==
--- NOTE | 2017-07-21 13:56 | ED Physician Chart ---
ED Chief Complaint/HPI - Patient Information Date Seen:: 07/21/17 Time Seen:: 13:45 Chief Complaint:: elevated blood sugar History of Present Illness:: Patient went to Dr. Morales's office this morning and his blood sugar was high. He was sent here. Patient has no physical complaints. Allergies:: Allergies Allergy/AdvReac Type Severity Reaction Status Date / Time No Known Allergies Allergy Verified 05/25/16 21:32 Historian:: Patient Review:: Nurse's Note Reviewed ED Review of Systems - Review of Systems General/Constitutional: No fever, No chills, No weight loss, No weakness, No diaphoresis, No edema, No loss of appetite Skin: No skin lesions, No rash, No bruising Head: No headache, No light-headedness Eyes: No loss of vision, No pain, No diplopia ENT: No earache, No nasal drainage, No sore throat, No tinnitus Neck: No neck pain, No swelling, No thyromegaly, No stiffness, No mass noted Cardio Vascular: No chest pain, No palpitations, No PND, No orthopnea, No edema Pulmonary: No SOB, No cough, No sputum, No wheezing GI: No nausea, No vomiting, No diarrhea, No pain, No melena, No hematochezia, No constipation, No hematemesis G/U: No dysuria, No frequency, No hematuria Musculoskeletal: No bone or joint pain, No back pain, No muscle pain Endocrine: No polyuria, No polydipsia Psychiatric: No prior psych history, No depression, No anxiety, No suicidal ideation Hematopoietic: No bruising, No lymphadenopathy Allergic/Immuno: No urticaria, No angioedema Neurological: No syncope, No focal symptoms, No weakness, No paresthesia, No headache, No seizure, No dizziness, No confusion, No vertigo ED Past Medical History - Past Medical History Past Medical History: HTN, DM, Arthritis Family History: Diabetes Melitus, HTN Social History: Smoker (states he rarely smokes cigarettes), No Alcohol Surgical History: other (right forearm for infection; three-vessel coronary artery bypass graft surgery) Psychiatricy History: None Medication: Reviewed Family Medical History - Family Member Father History Unknown: Yes Ethnicity: Living Status: Hx Family Cancer: No Hx Family Coronary Artery Disease: No Hx Family Congestive Heart Failure: No Hx Family Hypertension: No Hx Family Stroke: No Hx Family Diabetes: Yes Hx Family Seizures: No Hx Family Dementia: No Hx Family AIDS: No Hx Family HIV: No Hx Family COPD: No Hx Family Hepatitis: No Hx Family Psychiatric Problems: No Hx Family Tuberculosis: No ED Physical Exam - Physical Examination General/Constitutional: Awake, Well-developed, well-nourished, Alert, No distress, GCS 15, Non-toxic appearing, Ambulatory Head: Atraumatic Eyes: Lids, conjuctiva normal, PERRL, EOMI Skin: Nl inspection, No rash, No skin lesions, No ecchymosis, Well hydrated, No lymphadenopathy ENMT: External ears, nose nl, Nasal exam nl, Lips, teeth, gums nl Neck: Nontender, Full ROM w/o pain, No JVD, No nuchal rigidity, No bruit, No mass, No stridor Respiratory: Nl effort/Exclusion, Clear to Auscultation, No Wheeze/Rhonchi/Rales Cardio Vascular: RRR, No murmur, gallop, rubs, NL S1 S2 GI: No tenderness/rebounding/guarding, No organomegaly, No hernia, Normal BS's, Nondistended, No mass/bruits, No McBurney tenderness : No CVA tenderness Other Extremities comments:: Less than 90 of extension of the PIP joints of the fingers. Neuro/Psych: Alert/oriented, DTR's symmetric, Normal sensory exam, Normal motor strength, Judgement/insight normal, Mood normal, Normal gait, No focal deficits Misc: Normal back, No paraspinal tenderness
[2017-07-21 14:07] LABS: % EOSINOPHILS 3.9 % (0.0-5.0); % LYMPHOCYTES 18.2 % (20.0-50.0); % MONOCYTES 4.1 % (2.0-10.0); % NEUTROPHILS 72.8 % (40.0-80.0); BASOPHILE ABSOLUTE 0.1 Th/cumm (0-0.2); EOSINOPHILE ABSOLUTE 0.3 Th/cmm (0.1-0.4); HEMATOCRIT 44.1 % (41.0-60); HEMOGLOBIN 14.8 gm/dL (12-16); LYMPHOCYTE ABSOLUTE 1.4 Th/cmm (1.5-3.0); MEAN CELL VOLUME 90.3 fl (80-99); MEAN CORPUSCULAR HEMOGLOBIN 30.3 pg (26.0-30.0); MEAN CORPUSCULAR HGB CONC 33.5 pg (28.0-36.0); MEAN PLATELET VOLUME 8.5 fl; MONOCYTE ABSOLUTE 0.3 Th/cmm (0.3-1.0); NEUTROPHILE ABSOLUTE 5.6 Th/cmm (1.8-8.0); PLATELET COUNT 305 Th/cmm (150-400); RED BLOOD COUNT 4.88 Mil/cmm (4.30-5.70); WHITE BLOOD COUNT 7.7 Th/cmm (4.8-10.8)
[2017-07-21 14:33] LABS: ANION GAP 11.8 (7.0-16.0); BUN - UREA NITROGEN 31 mg/dL (7-25); CALCIUM SERUM 9.9 mg/dL (8.6-10.3); CARBON DIOXIDE 24.2 mEq/L (21.0-31.0); CHLORIDE 93 mEq/L (98-107); CREATININE - SERUM 1.4 mg/dL (0.7-1.3); GFR AFRICAN-AMERICAN > 60.0 ml/min (>90); GFR NON AFRICAN-AMERICAN 55.7 ml/min; MAGNESIUM 2.1 mg/dL (1.9-2.7); SODIUM SERUM 125 mEq/L (136-145)
[2017-07-21 15:02] LABS: GLUCOSE 647 mg/dL (70-105)
[2017-07-21 15:40] LABS: URINE MICROSCOPIC INDICATED? YES; URINE SOURCE MIDSTREAM
[2017-07-21 15:44] LABS: URINE BILIRUBIN NEGATIVE (NEGATIVE); URINE BLOOD NEGATIVE (NEGATIVE); URINE GLUCOSE (UA) >=1000 mg/dL (NEGATIVE); URINE KETONE NEGATIVE (NEGATIVE); URINE LEUKOCYTE ESTERASE NEGATIVE (NEGATIVE); URINE NITRATE NEGATIVE (NEGATIVE); URINE PH 5.5 (4.6 - 8.0); URINE PROTEIN 30 mg/dL (NEGATIVE); URINE UROBILINOGEN 0.2 E.U./dL (0.2 - 1.0)
[2017-07-21 15:50] LABS: URINE CLARITY CLEAR (CLEAR); URINE COLOR YELLOW
[2017-07-21 15:52] LABS: URINE RBC 0-2 /hpf (0-5); URINE WBC 0-2 /hpf (0-5)
[2017-07-21 15:53] LABS: URINE BACTERIA NONE SEEN /hpf (NONE SEEN); URINE EPITHELIAL CELLS OCCASIONAL /lpf (FEW)
[2017-07-21 19:43] LABS: A1C % 13.2 % (4.0-6.0)
== END 2017-07-21 14:18 | disposition left against medical advice (07) ==
LOC: ER 13:25
DX: E11.65 Type 2 diabetes mellitus with hyperglycemia (principal); I10 Essential (primary) hypertension; M19.90 Unspecified osteoarthritis, unspecified site; F17.210 Nicotine dependence, cigarettes, uncomplicated
CPT/HCPCS: 36415-UA; 80048-TC; 81001-TC; 82948-90; 83036-90; 83735-TC; 85025-TC; Z7502